=== PATIENT | male | born 1935 | race Caucasian/White ===

== ENCOUNTER 2023-11-18 09:44 | Emergency (ER) | payer MEDICARE, BC, SELFPAY ==
[2023-11-18 10:02] VITALS: BP 154/76; PULSE 90; RESP 22; TEMP 36.8; O2SAT 93; BMI 36.6
--- NOTE | 2023-11-18 10:44 | CRLHL7_ITS ---
For Patients: As a result of the Cures Act, medical imaging exams and procedure reports are released immediately into your electronic medical record. You may view this report before your referring provider. If you have questions, please contact your health care provider. INDICATION: : Shortness of breath COMPARISON: None TECHNIQUE: Two view(s) of the chest FINDINGS/IMPRESSION: Likely cardiomegaly with some pulmonary vascular congestion and some diffuse interstitial opacities favored to represent pulmonary interstitial edema. Small right and moderate left pleural effusions with adjacent atelectatic lung. No pneumothorax. No displaced fractures. Degenerative changes of the bilateral shoulders. Dictated by Jacob Mosher MD @ 11/18/2023 11:31:57 AM (Electronically Signed)
--- NOTE | 2023-11-18 11:00 | ED.SOB ---
HPI - SOB/Dyspnea General Date Seen: 11/18/23 Chief Complaint: Shortness of Breath/Dyspnea Stated Complaint: Shortness of Breath (COPD) Time Seen by Provider: 11/18/23 10:00 Source: patient Mode of arrival: ambulatory Limitations: no limitations History of Present Illness HPI Narrative: Patient is an 88-year-old male presenting to the emergency department for shortness of breath. He states he has been having worsening shortness of breath for the past few weeks. He does have COPD and has been using his home inhalers which have been helping with his symptoms. States he is taking more frequently than he is supposed to due to his symptoms. States now just walking around a short amount make some very short of breath. he does not wear oxygen at home. Is not having any associated chest pain. States this feels different than his previous COPD episodes. Has been noticing a lot of wheezing now. Denies fevers, chills, abdominal pain, lightheadedness, dizziness, weakness, numbness, diarrhea, constipation. Does not aware of any sick contacts. No other concerns noted at this time. He does have a history of aortic valve stenosis. Related Data Home Medications ?Medication ?Instructions ?Recorded ?Confirmed albuterol sulfate 90 mcg/actuation 1 - 2 puff inhalation Q4H PRN 11/18/23 11/18/23 aerosol inhaler wheezing chlorthalidone 25 mg tablet 12.5 mg PO DAILY 11/18/23 11/18/23 clopidogrel 75 mg tablet 75 mg PO DAILY 11/18/23 11/18/23 ipratropium 0.5 mg-albuterol 3 mg 3 ml inhalation QID PRN 11/18/23 11/18/23 (2.5 mg base)/3 mL nebulization soln losartan 50 mg tablet 50 mg PO DAILY 11/18/23 11/18/23 metoprolol succinate 25 mg 25 mg PO DAILY 11/18/23 11/18/23 tablet,extended release 24 hr pravastatin 80 mg tablet 80 mg PO QPM 11/18/23 11/18/23 tamsulosin 0.4 mg capsule 0.8 mg PO DAILY 11/18/23 11/18/23 triamcinolone acetonide 0.5 % applic topical 11/18/23 topical cream umeclidinium 62.5 mcg/actuation 1 inh inhalation DAILY 11/18/23 11/18/23 blister powder for inhalation (Incruse Ellipta) Previous Rx's ?Medication ?Instructions ?Recorded torsemide 20 mg tablet 20 mg PO BID #30 tabs 11/18/23 Allergies Allergy/AdvReac Type Severity Reaction Status Date / Time No Known Drug Allergies Allergy Verified 11/18/23 10:11 Review of Systems Status of ROS: Reports: 10 or more systems reviewed and unremarkable except as noted in History and below PFSH PFS Social History Smoking Status: Former smoker What tobacco products do you use: cigarettes How often do you have a drink containing alcohol: never How often do you have six or more drinks on one occasion: Never AUDIT-C Alcohol total score: 0 Non-prescribed substance use: denies use Exam Narrative: Exam Narrative: Const: Well-nourished, Well-developed, in mild distress Eyes: PERRL, no conjunctival injection, and symmetrical lids HENT: Atraumatic external nose and ears. Moist mucous membranes. Neck: Symmetric, trachea midline, No thyromegaly. CVS: RRR, No murmurs or gallops. Peripheral pulses 2+ and equal in all extremities RESP: Unlabored respiratory effort. Decreased breath sounds throughout with some crackles in lower lobes GI: Nontender/Nondistended, No rebound or guarding. MSK:Extremities w/o deformity, Normal Active ROM Skin: Warm, Dry. No rashes or lesions. Neuro: Normal Muscle tone, No focal neurological deficits. Psych: Awake, Alert, & Oriented x3. Appropriate mood and affect. Const: Vital Signs, click to edit/add: Vital Signs - 24 hr 11/18/23 10:02 Temperature 98.2 F Pulse Rate [Pulse Oximeter] 90 Respiratory Rate 22 Blood Pressure [Ri ght Upper Arm] 154/76 H Pulse Oximetry 93 Oxygen Delivery Me thod Room Air Course Vital Signs Vital signs: Initial Vital Signs Temperature 98.2 F 11/18/23 10:02 Temperature Source Temporal Artery Scan 11/18/23 10:02 Pulse Rate 90 11/18/23 10:02 Pulse Rhythm Regular 11/18/23 10:02 Respiratory Rate 22 11/18/23 10:02 Blood Pressure 154/76 H 11/18/23 10:02 Blood Pressure Mean 102 11/18/23 10:02 Pulse Oximetry 93 11/18/23 10:02 Oxygen Delivery Method Room Air 11/18/23 10:02 Vital Signs Temperature 98.2 F 11/18/23 10:02 Pulse Rate 90 11/18/23 10:02 Respiratory Rate 22 11/18/23 10:02 Blood Pressure 154/76 H 11/18/23 10:02 Pulse Oximetry 93 11/18/23 10:02 Oxygen Delivery Method Room Air 11/18/23 10:02 Temperature 98.2 F 11/18/23 10:02 Pulse Rate 90 11/18/23 10:02 Respiratory Rate 22 11/18/23 10:02 Blood Pressure 154/76 H 11/18/23 10:02 Pulse Oximetry 93 11/18/23 10:02 Oxygen Delivery Method Room Air 11/18/23 10:02 Medications Administered Medications: Discontinued Medications Generic Name Dose Route Start Last Admin Trade Name Freq PRN Reason Stop Dose Admin Albuterol 20 mg 11/18/23 10:44 11/18/23 11:31 Albuterol Sulfate 2.5 Mg/3 Ml Vial.Neb NEB 11/18/23 10:45 Not Given ONCE ONE Methylprednisolone Sodium Succinate 125 mg 11/18/23 10:44 11/18/23 11:20 Methylprednisolone Sod Succ 62.5 Mg/Ml (125) IVP 11/18/23 10:45 125 mg ONCE ONE Administration MDM - SOB/Dyspnea MDM Narrative Medical decision making narrative: Patient is an 88-year-old male presenting to emergency department for shortness of breath. Based on exam and history this seems likely to be a COPD exacerbation. No lower extremity edema and heart failure seems unlikely but will check a BNP. Chest x-ray aortic for signs of pneumonia or pneumothorax. EKG and troponins the for signs of ACS. Will also order a CBC, BMP, urinalysis, COVID/flu/RSV. Did preliminary give him a treatment of Solu-Medrol for possible COPD. Albuterol initially ordered but was canceled Lab work returned with a BNP of 1450. Chest x-ray shows some pulmonary edema. Creatinine is 1.7 which is his baseline. Rest of his labs showed no concerning abnormalities. This is all consistent with CHF. Symptoms seem to be most likely from CHF rather than a COPD exacerbation at this time. Troponin within normal limits. EKG shows no concerning abnormalities. We did ambulate the patient and he was feeling better compared to an when he 1st came and and his oxygenation stayed above 91%. I spoke to his primary care provider about the patient's heart failure and he recommended to start the patient on torsemide 20 mg b.i.d. Patient will follow-up next week with someone from his office. Lab Data Labs: Lab Results 11/18/23 11/18/23 Range/Units 11:27 12:22 WBC 10.75 (4.50-11.00) K/uL RBC 4.14 L (4.30-5.90) m/uL Hgb 12.8 L (13.5-17.5) gm/dL Hct 40.2 (37.0-53.0) % MCV 97 (80-100) fL MCH 31 (26-34) pg MCHC 32 (32-36) gm/dL RDW Coeff of Sissy 12.3 (11.5-15.5) % Plt Count 196 (140-440) K/uL Neut % (Auto) 77.5 H (42.0-72.0) % Lymph % (Auto) 9.7 L (20-44) % [place] % (Auto) 7.9 (0.0-11.0) % Eos % (Auto) 4.3 (0.0-7.0) % Baso % (Auto) 0.3 (0.0-3.0) % Neut # (Auto) 8.30 H (1.7-7.0) K/uL Lymph # (Auto) 1.00 (0.90-2.90) K/uL [place] # (Auto) 0.80 (0.00-0.90) K/UL Eos # (Auto) 0.46 (0.00-0.50) K/uL Baso # (Auto) 0.03 (0.00-0.30) K/uL Abs Immat Gran (auto) 0.03 (0.00-0.30) K/uL Imm/Tot Granulo (auto) 0.3 % Sodium 139 (135-149) mmol/L Potassium 4.7 (3.6-5.1) mmol/L Chloride 108 (96-114) mmol/L Carbon Dioxide 20 (20-32) mmol/L Anion Gap 11 (7-15) mEq/L BUN 34 H (7-30) mg/dL Creatinine 1.7 H (0.5-1.5) mg/dL Estimated Creat Clear 26.63 Estimated GFR 39 ml/min Glucose 127 H (60-115) mg/dL Calcium 8.7 (8.4-10.6) mg/dL Troponin I 0.02 (0.01-0.04) ng/mL NT-Pro-B Natriuret Pep 1450 pg/mL Urine Color Yellow (Yellow) Urine Appearance Clear (Clear) Urine pH 5.5 (5.0-8.5) Ur Specific [place] 1.025 (1.000-1.030) Urine Protein Negative (Negative) Urine Glucose (UA) Negative (Negative) Urine Ketones Negative (Negative) Urine Blood Trace-intact A (Negative) Urine Nitrite Negative (Negative) Urine Bilirubin Negative (Negative) Urine Urobilinogen 0.2 (0.2-1.0) Ur Leukocyte Esterase Negative (Negative) Urine RBC 0-2 (0-2) Urine WBC 0-2 (0-5) Ur Squamous Epith Cells Few (None-Few) Amorphous Sediment Few A (None) Urine Bacteria None (None) SARS-CoV-2 (PCR) Negative SARS-CoV-2 (Negative) Influenza Type A (PCR) Negative PCR FLU A (Negative) Influenza Type B (PCR) Negative PCR FLU B (Negative) RSV (PCR) Negative PCR RSV (Negative) Imaging Data Chest x-ray: Attestation: I have reviewed the pertinent imaging results. Radiologist's impression: Likely cardiomegaly with some pulmonary vascular congestion and some diffuse interstitial opacities favored to represent pulmonary interstitial edema. Small right and moderate left pleural effusions with adjacent atelectatic lung. No pneumothorax. No displaced fractures. Degenerative changes of the bilateral shoulders. Dictated by Jacob Mosher MD @ 11/18/2023 11:31:57 AM ECG Data Attestation: I personally reviewed and interpreted this ECG as follows: Prior ECG tracings: not available for review Interpretation: Normal sinus rhythm with rate of 85 beats per minute, normal intervals, normal axis, no ST or T-wave abnormalities Discharge Plan Discharge Clinical Impression: Diastolic congestive heart failure Patient Disposition: Home, Self-Care Condition: Stable Instructions: Heart Failure (DC) Additional Instructions: I spoke to Dr. Vergara and he recommends adding torsemide which is another water pill. He is out of office for most of next week but you can call today to try and get an appointment with 1 of his colleagues next week and at least get lab work done on Tuesday. If symptoms worsen return to the emergency department for re-evaluation Prescriptions: New torsemide 20 mg tablet 20 mg PO BID Qty: 30 0RF No Action losartan 50 mg tablet 50 mg PO DAILY ipratropium-albuterol 0.5 mg-3 mg(2.5 mg base)/3 mL solution for nebulization 3 ml INHALATION QID PRN triamcinolone acetonide 0.5 % cream topical clopidogrel 75 mg tablet 75 mg PO DAILY chlorthalidone 25 mg tablet 12.5 mg PO DAILY pravastatin 80 mg tablet 80 mg PO QPM tamsulosin 0.4 mg capsule 0.8 mg PO DAILY metoprolol succinate 25 mg tablet extended release 24 hr 25 mg PO DAILY albuterol sulfate 90 mcg/actuation HFA aerosol inhaler 1 - 2 puff INHALATION Q4H PRN (Reason: wheezing) Incruse Ellipta 62.5 mcg/actuation blister with device 1 inh INHALATION DAILY Follow Up/Referrals: Alex Sinclair MD [Primary Care Provider] - Stand Alone Forms: [employer] Info Instructions
--- NOTE | 2023-11-18 11:15 | ED.NURSE ---
RT called to consult with pt.
[2023-11-18] MEDS: METHYLPREDNISOLONE SOD SUCC 62.5 MG/ML (125) 125 MG IVP (11:20)
[2023-11-18 11:36] LABS: Basophils Absolute Auto 0.03 K/uL (0.00-0.30); Basophils Percent Auto 0.3 % (0.0-3.0); Eosinophils Absolute Auto 0.46 K/uL (0.00-0.50); Eosinophils Percent Auto 4.3 % (0.0-7.0); Hematocrit 40.2 % (37.0-53.0); Hemoglobin* 12.8 gm/dL (13.5-17.5); Immature Granulocytes Abs Auto 0.03 K/uL (0.00-0.30); Immature Granulocytes Pct Auto 0.3 %; Lymphocytes Percent Auto 9.7 % (20-44); Mean Corpuscular HGB Conc 32 gm/dL (32-36); Mean Corpuscular Hemoglobin 31 pg (26-34); Mean Corpuscular Volume 97 fL (80-100); Monocytes Percent Auto 7.9 % (0.0-11.0); Neutrophils Percent Auto 77.5 % (42.0-72.0); Platelet Count* 196 K/uL (140-440); RDW Coefficient of Variation % 12.3 % (11.5-15.5); Red Blood Count 4.14 m/uL (4.30-5.90); White Blood Count* 10.75 K/uL (4.50-11.00)
[2023-11-18 11:41] LABS: Slide Review Reflex No
[2023-11-18 11:49] LABS: Chloride* 108 mmol/L (96-114); Potassium* 4.7 mmol/L (3.6-5.1); Sodium* 139 mmol/L (135-149)
--- NOTE | 2023-11-18 11:50 | ED.NURSE ---
Pt ambulated around the unit, oxygen measured between 91-93%. Pt tolerated well, reports feeling puffy, after sitting back down in room.
[2023-11-18 11:52] LABS: Anion Gap 11 mEq/L (7-15); Blood Urea Nitrogen* 34 mg/dL (7-30); Carbon Dioxide* 20 mmol/L (20-32); Creatinine* 1.7 mg/dL (0.5-1.5); Est. Creatinine Clearance* 26.63; Estimated Glomerular Filt Rate 39 ml/min; Glucose* 127 mg/dL (60-115)
[2023-11-18 11:53] LABS: Calcium* 8.7 mg/dL (8.4-10.6)
[2023-11-18 11:59] VITALS: BP 169/97; PULSE 88; RESP 18; O2SAT 92
[2023-11-18 12:04] LABS: Troponin I* 0.02 ng/mL (0.01-0.04)
[2023-11-18 12:11] LABS: PCR FLU A Negative PCR FLU A (Negative); PCR FLU B Negative PCR FLU B (Negative); PCR RSV Negative PCR RSV (Negative); SARS PCR* Negative SARS-CoV-2 (Negative)
[2023-11-18 12:12] LABS: NT Pro B Type NatriureticPept* 1450 pg/mL
[2023-11-18 12:32] LABS: Appearance Urine Clear (Clear); Bilirubin Urine Negative (Negative); Blood Urine Trace-intact (Negative); Color Urine Yellow (Yellow); Glucose Urine Negative (Negative); Ketones Urine Negative (Negative); Leukocyte Esterase Urine Negative (Negative); Nitrite Urine Negative (Negative); Protein Urine Negative (Negative); Specific Gravity Urine 1.025 (1.000-1.030); Urobilinogen Urine 0.2 (0.2-1.0); pH Urine 5.5 (5.0-8.5)
[2023-11-18 13:06] LABS: RBC Urine 0-2 (0-2); Squamous Epithelial Cell Urine Few (None-Few); WBC Urine 0-2 (0-5)
[2023-11-18 13:07] LABS: Amorphous Sediment Urine Few
--- NOTE | 2023-11-18 13:27 | RESP.RT ---
Patient sitting on edge of bed on room air SATing 95%. Patient takes Incruse DPI once a day in the morning and states that he follows that up with a Nebulizer. He believes it is Albuterol, but not sure. He also takes a rescue inhaler probably Albuterol as well. He was not taking his MDI as instructed, so follow up instruction was given and he was provided with a quality spacer to take his MDI at home. He was able to talk in full sentances without issue and his RR appeared to be 18-22 throughout the conversations. He did have slightly swollen feet and ankles, and stated that he has difficulty keeping his breath while walking.
--- NOTE | 2023-11-18 14:44 | ED.NURSE ---
Patient's called reporting issue getting follow up appointment scheduled. I made call to [facility] and set up appt for 11/29/23 at 10:[address] Oleary. This information was then given to via telephone.
== END 2023-11-18 13:31 | disposition home or self-care (01) ==
PROVIDERS: Emergency Provider Student in an Organized Health Care Education/Training Program; PCP Family Medicine
DX: I50.30 Unspecified diastolic (congestive) heart failure (principal)
CPT/HCPCS: 36415; 71046; 80048; 81001; 83880; 84484; 85025; 87631; 93005; 96374; 99283; 99284; J2919

== ENCOUNTER 2024-01-19 16:24 | Inpatient (IN) | payer MEDICARE, BC, SELFPAY ==
[2024-01-19] VITALS (20 sets, daily range): BP systolic 126–152; BP diastolic 49–86; PULSE 92–105; RESP 28–32; TEMP 36.9–37.6; O2SAT 91–95; BMI 39.1; BMI 37.6
--- NOTE | 2024-01-19 16:45 | CRLHL7_ITS ---
For Patients: As a result of the 21st Century Cures Act, medical imaging exams and procedure reports are released immediately into your electronic medical record. You may view this report before your referring provider. If you have questions, please contact your health care provider. INDICATION: Shortness of breath, chills, abdominal pain. TECHNIQUE: CT chest, abdomen and pelvis acquired without contrast. COMPARISON: None. FINDINGS: CHEST: Cardiovascular structures: Prominent heart size. Coronary artery calcifications. Thoracic aorta and main pulmonary artery are normal in caliber. Mediastinum and zack: No mass or adenopathy. Lungs and pleura: Pulmonary emphysema. Small left and trace right pleural effusions with compressive atelectasis. No pneumothorax. Incidental 1.9 centimeter right middle lobe pulmonary nodule. Additional focal 11 millimeter right lower lobe ground-glass nodule (series 3/image 53). Chest wall and axilla: No mass or adenopathy. Bones: No suspicious bone lesions. Unremarkable for age. ABDOMEN AND PELVIS: Liver: Unremarkable. Gallbladder and bile ducts: Tiny gallstone. Pancreas: Fatty atrophy. Spleen: Unremarkable. Adrenal glands: Unremarkable. Kidneys: Bilateral renal cysts. No hydronephrosis. Multiple nonobstructing stones in the left greater than right kidney. GI tract: Some fluid in the proximal colon. Colonic diverticulosis without diverticulitis. No bowel obstruction. Vascular structures: Aortoiliac arterial calcifications with 5.8 centimeter suprarenal abdominal aortic aneurysm. Lymph nodes: Unremarkable. Miscellaneous: Unremarkable. No free air or significant free fluid. Pelvic Organs: Prostatomegaly. Mildly distended bladder.. Bones: No suspicious bone lesions. Unremarkable for age. IMPRESSION: Some fluid in the proximal colon which can be seen with diarrheal illness. Incidental indeterminate 1.9 centimeter right middle lobe pulmonary nodule. Additional incidental 11 millimeter right lower lobe ground-glass nodule, possibly infectious/inflammatory in etiology. Recommend dedicated chest CT in 3 months to evaluate for resolution. Correlation with prior imaging would be helpful if available. Small left pleural effusion with compressive atelectasis. No definite pneumonia. Incidental 5.8 centimeter suprarenal abdominal aortic aneurysm. Colonic diverticulosis without diverticulitis. Tiny gallstone without acute cholecystitis. Otherwise, no acute intrathoracic or intra-abdominal/pelvic abnormality, including source of infection. Additional chronic findings as above. Please note that all CT scans at this facility use dose modulation, iterative reconstruction, and/or weight-based dosing when appropriate to reduce radiation dose to as low as reasonably achievable. Dictated by Kiran Carter MD @ 01/19/2024 8:01:34 PM (Electronically Signed)
--- NOTE | 2024-01-19 16:52 | ED_ITS ---
HPI - General Adult General Date Seen: 01/19/24 Chief complaint: Shortness of Breath/Dyspnea Stated complaint: trouble breathing, dizzy Time Seen by Provider: 01/19/24 16:39 Source: patient and family Mode of arrival: wheelchair Limitations: no limitations History of Present Illness HPI narrative: Patient is an 89-year-old male here with his son and for evaluation of chills, shortness of breath, abdominal pain and diarrhea. Symptoms started yesterday but have worsened today. He does not have chest pain but he says both shoulders have been hurting. He had some lower abdominal pain had some nonbloody diarrhea earlier today. He has not had any vomiting. Has felt short of breath. Has a history of COPD and heart failure, legs are little more swollen than usual. No fever documented but they do not have a thermometer at home. He has felt chilled and somewhat ill today. Related Data Home Medications ?Medication ?Instructions ?Recorded ?Confirmed albuterol sulfate 90 mcg/actuation 1 - 2 puff inhalation Q4H PRN 11/18/23 01/19/24 aerosol inhaler wheezing chlorthalidone 25 mg tablet 12.5 mg PO DAILY 11/18/23 01/19/24 clopidogrel 75 mg tablet 75 mg PO DAILY 11/18/23 01/19/24 ipratropium 0.5 mg-albuterol 3 mg 3 ml inhalation QID PRN 11/18/23 01/19/24 (2.5 mg base)/3 mL nebulization soln losartan 50 mg tablet 50 mg PO DAILY 11/18/23 01/19/24 metoprolol succinate 25 mg 25 mg PO DAILY 11/18/23 01/19/24 tablet,extended release 24 hr pravastatin 80 mg tablet 80 mg PO HS 11/18/23 01/20/24 tamsulosin 0.4 mg capsule 0.8 mg PO DAILY 11/18/23 01/19/24 triamcinolone acetonide 0.5 % 1 applic topical Q8H PRN itching 11/18/23 01/19/24 topical cream umeclidinium 62.5 mcg/actuation 1 inh inhalation DAILY 11/18/23 01/19/24 blister powder for inhalation (Incruse Ellipta) torsemide 20 mg tablet 20 mg PO QAM 01/19/24 01/19/24 Allergies Allergy/AdvReac Type Severity Reaction Status Date / Time No Known Drug Allergies Allergy Verified 01/19/24 16:33 Review of Systems Status of ROS: Reports: 10 or more systems reviewed and unremarkable except as noted in History and below [facility] Medical History (Updated 02/14/24 @ 00:01 by Zac Reynolds) Elevated troponin ?R79.89 - Other specified abnormal findings of blood chemistry (ICD-10) AAA (abdominal aortic aneurysm) ?I71.40 - Abdominal aortic aneurysm, without rupture, unspecified (ICD-10) Aortic stenosis, severe ?I35.0 - Nonrheumatic aortic (valve) stenosis (ICD-10) Atrial fibrillation with RVR ?I48.91 - Unspecified atrial fibrillation (ICD-10) COPD (chronic obstructive pulmonary disease) ?J44.9 - Chronic obstructive pulmonary disease, unspecified (ICD-10) Morbid obesity ?E66.01 - Morbid (severe) obesity due to excess calories (ICD-10) BPH (benign prostatic hyperplasia) ?N40.0 - Benign prostatic hyperplasia without lower urinary tract symptoms (ICD-10) Type 2 DM with CKD stage 4 and hypertension ?E11.22 - Type 2 diabetes mellitus with diabetic chronic kidney disease (ICD- 10) ?I12.9 - Hypertensive chronic kidney disease with stage 1 through stage 4 chronic kidney disease, or unspecified chronic kidney disease (ICD-10) ?N18.4 - Chronic kidney disease, stage 4 (severe) (ICD-10) Aortic stenosis ?I35.0 - Nonrheumatic aortic (valve) stenosis (ICD-10) 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 quit smoking >20 years ago What is your current living situation?: I presently have a place to live Problems where you live: no known problems Problems where you live details: N/A In the past 12 months, utilities in danger of being shut off: no In the past 12 mos, have been you worried that your food would run out before you had money to buy more?: never true In the past 12 mos, the food you bought just didn't last and you didn't have money to buy more?: never true Highest level of school completed/degree received: 12th grade, no diploma Smoking Status: Former smoker What tobacco products do you use: cigarettes Smoking quit date/years: >15 years ago Second hand tobacco smoke exposure: No How often do you have a drink containing alcohol: never How often do you have six or more drinks on one occasion: Never AUDIT-C Alcohol total score: 0 Non-prescribed substance use: denies use How often does anyone, including family, friends and others, physically hurt you : never How often does anyone, including family, friends and others, insult or talk down to you: never How often does anyone, including family, friends and others, threaten you with harm: never How often does anyone, including family, friends and others, scream or curse at you: never service: No Exam Narrative: Exam Narrative: Vital signs as noted above. In general, an alert, elderly male. He is lying on his side at his preference on the cart. Head: Normocephalic, atraumatic. Eyes: Pupils are equal reactive. Extraocular movements are full. Conjunctivae are normal. ENT: Mucous membranes are moist. Throat is normal. Neck: Supple without lymphadenopathy. Heart: Tachycardic, regular. Harsh systolic murmur heard best at the right sternal border. Lungs: Lungs actually sound clear. There is no wheezing, I do not hear significant crackles but he is tachypneic and breathing is mildly labored. Abdomen: Protuberant and soft. Nontender to palpation. Extremities: Edema noted in bilateral lower extremities without erythema. Neurologic: Patient is alert and oriented to person and place. Speech is fluent. Face is symmetric. Moves all extremities equally. Affect: Normal. Skin: Warm and dry. Well perfused. Const: Vital Signs, click to edit/add: Vital Signs - 24 hr 01/19/24 16:26 01/19/24 17:11 01/19/24 17:15 Temperature 99.6 F Pulse Rate 104 H 103 H Pulse Rate [Right Pulse Oximeter] 104 H Respiratory Rate 28 H 30 H Blood Pressure Blood Pressure [Le ft Upper Arm] 152/74 H Pulse Oximetry 94 92 94 Oxygen Delivery Me thod Room Air Room Air 01/19/24 17:22 01/19/24 17:30 01/19/24 18:48 Temperature Pulse Rate 99 100 96 Pulse Rate [Right Pulse Oximeter] Respiratory Rate 30 H Blood Pressure 126/49 L Blood Pressure [Le ft Upper Arm] Pulse Oximetry 94 92 92 Oxygen Delivery Me thod 01/19/24 18:49 01/19/24 19:23 01/19/24 19:30 Temperature Pulse Rate 97 98 97 Pulse Rate [Right Pulse Oximeter] Respiratory Rate 30 H Blood Pressure 150/76 H Blood Pressure [Le ft Upper Arm] Pulse Oximetry 93 91 92 Oxygen Delivery Me thod Room Air 01/19/24 19:45 01/19/24 20:00 01/19/24 20:00 Temperature Pulse Rate 99 94 Pulse Rate [Right Pulse Oximeter] Respiratory Rate 30 H Blood Pressure Blood Pressure [Le ft Upper Arm] Pulse Oximetry 91 95 94 Oxygen Delivery Me thod Room Air Room Air 01/19/24 20:15 01/19/24 20:30 Temperature Pulse Rate 105 H 99 Pulse Rate [Right Pulse Oximeter] Respiratory Rate 32 H Blood Pressure 146/86 H Blood Pressure [Le ft Upper Arm] Pulse Oximetry 94 94 Oxygen Delivery Me thod Room Air Documenting provider has reviewed patient's vital signs: yes Course Course ED Course: Diagnostic considerations are broad and include bacterial or viral infection such as pneumonia, COVID or other, intra-abdominal process including colitis, diverticulitis, cholecystitis, UTI or pyelonephritis among others, cardiac diagnoses such as acute coronary syndrome, congestive heart failure exacerbation, arrhythmia. EKG here shows a sinus rhythm, first-degree AV block, ventricular rate of 98 beats per minute. No acute ST segment changes. Some PACs. Labs are notable for a normal white blood cell count of 8.5, hemoglobin of 11.9, down just under a g from October of this year. Venous gases normal, pH is 7.33. Electrolytes notable for a sodium of 134 and a potassium of 5.2. BUN is 43 and creatinine is 2.7, up from his most recent baseline of 1.7. He does tell me he just size kidney doctor not long ago who said his kidneys were doing very well. His lactate is normal at 1.1. LFTs are normal, troponin is 0.02. BNP is elevated 4580, it was 1500 last time it was checked when he was thought to be having an exacerbation of congestive heart failure. Looking through his records, I do not see a prior echo in our system. CRP is elevated at greater than 9. TSH is normal. COVID influenza and RSV is negative. I was not able to do a CT with contrast because of his creatinine, CT without contrast by my review shows a small effusion on the left, I do not see any evidence of pneumonia. CT of the abdomen pelvis does not show any significant findings by my review. Radiology read is noted for showing a little bit of fluid in the proximal colon which can be seen with a diarrheal illness. He has an indeterminate 1.9 cm right middle lobe pulmonary nodule and an incidental 11 mm right lower lobe ground-glass nodule, dedicated chest CT is recommended in 3 months to evaluate for resolution. He has a small left pleural effusion, an incidental 5.8 cm suprarenal AAA, other incidental findings reviewed. Overall, evaluation today seems to indicate an exacerbation of congestive heart failure with pleural effusion and elevated BNP, dyspnea and mild hypoxia in the setting of worsening renal failure. I recommended admission to the hospital for diuresis and to follow his kidney function as we do this. Diuresis and other medications will be started on the floor. Vital Signs Vital signs: Initial Vital Signs Temperature 99.6 F 01/19/24 16:26 Temperature Source Temporal Artery Scan 01/19/24 16:26 Pulse Rate 104 H 01/19/24 16:26 Pulse Rhythm Regular 01/19/24 16:26 Pulse Strength 3+ Normal 01/19/24 16:26 Respiratory Rate 28 H 01/19/24 16:26 Blood Pressure 152/74 H 01/19/24 16:26 Blood Pressure Mean 100 01/19/24 16:26 Blood Pressure Position Sitting 01/19/24 16:26 Pulse Oximetry 94 01/19/24 16:26 Oxygen Delivery Method Room Air 01/19/24 16:26 Vital Signs Temperature 99.6 F 01/19/24 16:26 Pulse Rate 104 H 01/19/24 16:26 Respiratory Rate 28 H 01/19/24 16:26 Blood Pressure 152/74 H 01/19/24 16:26 Pulse Oximetry 94 01/19/24 16:26 Oxygen Delivery Method Room Air 01/19/24 16:26 Temperature 99.4 F 01/22/24 11:00 Pulse Rate 83 01/22/24 11:00 Respiratory Rate 22 01/22/24 11:00 Blood Pressure 133/80 01/22/24 11:00 Pulse Oximetry 91 01/22/24 11:00 Oxygen Delivery Method Room Air 01/22/24 11:00 Medications Administered Medications: Discontinued Medications Generic Name Dose Route Start Last Admin Trade Name Freq PRN Reason Stop Dose Admin Acetaminophen 650 - 975 mg 01/19/24 21:15 01/21/24 16:42 Acetaminophen 325 Mg Tablet PO 975 mg Q6H PRN Administration Albuterol/Ipratropium 1 neb 01/19/24 21:15 01/21/24 08:41 Iprat-Albut 0.5-2.5 Mg/3 Ml Neb IH 1 neb Q2H PRN Administration Apixaban 2.5 mg 01/21/24 09:00 01/22/24 09:01 Apixaban 5 Mg Tablet PO 2.5 mg BID ERIC Administration Azithromycin 500 mg 01/19/24 21:15 01/20/24 21:19 Azithromycin 250 Mg Tablet PO 01/21/24 21:16 500 mg Q24H ERIC Administration Budesonide 0.5 mg 01/19/24 21:15 01/22/24 09:01 Budesonide 0.5 Mg/2ml Neb NEB 0.5 mg BID ERIC Administration Clopidogrel Bisulfate 75 mg 01/20/24 09:00 01/20/24 08:44 Clopidogrel 75 Mg Tablet PO 75 mg DAILY ERIC Administration Diltiazem HCl 30 mg 01/21/24 10:45 01/22/24 07:50 Diltiazem 30 Mg Tablet PO 30 mg Q4H ERIC Administration Diltiazem HCl 120 mg 01/22/24 09:00 01/22/24 11:18 Diltiazem 120 Mg Cap.Er.24h PO 120 mg DAILY ERIC Administration Enoxaparin Sodium 40 mg 01/19/24 21:15 01/20/24 07:54 Enoxaparin 40 Mg/0.4 Ml Inj SUBCUT Not Given HS ERIC Enoxaparin Sodium 30 mg 01/19/24 22:15 01/20/24 07:54 Enoxaparin 40 Mg/0.4 Ml Inj SUBCUT Not Given HS ERIC Enoxaparin Sodium 30 mg 01/19/24 22:20 01/20/24 22:00 Enoxaparin 30 Mg/0.3ml Inj SUBCUT 30 mg HS ERIC Administration Furosemide 40 mg 01/19/24 21:15 01/19/24 22:07 Furosemide 10 Mg/Ml Inj IVP 01/19/24 21:16 40 mg ONCE ONE Administration Furosemide 40 mg 01/20/24 11:13 01/20/24 11:52 Furosemide 10 Mg/Ml Inj IVP 01/20/24 11:14 40 mg ONCE ONE Administration Furosemide 40 mg 01/20/24 18:00 01/20/24 20:04 Furosemide 10 Mg/Ml Inj IVP 01/20/24 18:01 40 mg ONCE ONE Administration Ceftriaxone Sodium 1 gm/ 100 mls @ 200 mls/hr 01/19/24 21:15 01/20/24 07:55 Sodium Chloride IVPB Infused Q24H ERIC Infusion Vancomycin/PEG/NADA/Lysine/Water 2 gm in 400 mls @ 200 mls/hr 01/20/24 17:30 01/21/24 10:45 Vancomycin 2 Gm/400 Ml IVPB 01/20/24 19:29 Infused ONCE ONE Infusion Protocol Vancomycin/PEG/NADA/Lysine/Water 1.5 gm in 300 mls @ 200 mls/hr 01/22/24 08:14 01/22/24 08:58 Vancomycin 1.5 Gm/300 Ml IVPB 01/22/24 09:43 Not Given ONCE ONE Protocol Insulin Aspart 0 unit 01/20/24 07:30 01/22/24 12:10 Insulin Aspart 100 Unit/Ml SUBCUT Not Given ACHS [facility] Protocol Losartan Potassium 50 mg 01/20/24 09:00 01/20/24 08:44 Losartan Potassium 50 Mg Tablet PO 50 mg DAILY ERIC Administration Metoprolol Succinate 25 mg 01/20/24 09:00 01/20/24 08:44 Metoprolol Succinate (Xl) 25 Mg Tab PO 25 mg DAILY ERIC Administration Metoprolol Succinate 50 mg 01/21/24 09:00 01/22/24 09:01 Metoprolol Succinate (Xl) 25 Mg Tab PO 50 mg DAILY ERIC Administration Metoprolol Tartrate 5 mg 01/21/24 07:05 01/21/24 08:31 Metoprolol Tartrate 1 Mg/Ml Inj IVP 01/21/24 07:06 5 mg ONCE ONE Administration Metoprolol Tartrate 5 mg 01/21/24 09:39 01/21/24 10:15 Metoprolol Tartrate 1 Mg/Ml Inj IVP 01/21/24 09:40 5 mg ONCE ONE Administration Umeclidinium [ 0 inhalation 01/20/24 09:00 01/22/24 11:05 Incruse Ellipta] 62. IH Not Given 5 Mcg/Actuation DAILY ERIC Blister Ondansetron HCl 4 mg 01/19/24 21:15 01/22/24 03:55 Ondansetron 2 Mg/Ml Inj IVP 4 mg Q4H PRN Administration Nausea Pravastatin Sodium 80 mg 01/20/24 18:00 01/21/24 18:24 Pravastatin Sodium 20 Mg Tablet PO 80 mg QPM ERIC Administration Sodium Chloride 5 ml 01/19/24 21:15 01/22/24 03:55 Sodium Chloride 0.9 % (Flush) 10 Ml Syringe IVF 5 ml .FLUSH PRN Administration Sodium Chloride 5 ml 01/19/24 21:15 01/22/24 09:02 Sodium Chloride 0.9 % (Flush) 10 Ml Syringe IVF 5 ml BID ERIC Administration Tamsulosin HCl 0.8 mg 01/20/24 09:00 01/22/24 09:02 Tamsulosin Hcl 0.4 Mg Capsule PO 0.8 mg DAILY ERIC Administration Torsemide 20 mg 01/20/24 09:00 01/20/24 08:44 Torsemide 20 Mg Tablet PO 20 mg QAM ERIC Administration Medical Decision Making Lab Data Labs: Lab Results 01/19/24 01/19/24 01/19/24 Range/Units 17:20 17:40 17:45 WBC 8.50 (4.50-11.00) K/uL RBC 3.87 L (4.30-5.90) m/uL Hgb 11.9 L (13.5-17.5) gm/dL Hct 36.8 L (37.0-53.0) % MCV 95 (80-100) fL MCH 31 (26-34) pg MCHC 32 (32-36) gm/dL RDW Coeff of Sissy 13.2 (11.5-15.5) % Plt Count 152 (140-440) K/uL Neut % (Auto) 83.3 H (42.0-72.0) % Lymph % (Auto) 4.0 L (20-44) % [place] % (Auto) 8.0 (0.0-11.0) % Eos % (Auto) 4.2 (0.0-7.0) % Baso % (Auto) 0.1 (0.0-3.0) % Neut # (Auto) 7.10 H (1.7-7.0) K/uL Lymph # (Auto) 0.30 L (0.90-2.90) K/uL [place] # (Auto) 0.70 (0.00-0.90) K/UL Eos # (Auto) 0.36 (0.00-0.50) K/uL Baso # (Auto) 0.01 (0.00-0.30) K/uL Abs Immat Gran (auto) 0.03 (0.00-0.30) K/uL Imm/Tot Granulo (auto) 0.4 % VBG pH 7.335 (7.32-7.43) VBG pCO2 42 (40-50) mmHG VBG pO2 35.0 (25-47) mmHG VBG HCO3 22 (21-28) mmol/L Sodium 134 L (135-149) mmol/L Potassium 5.2 H (3.6-5.1) mmol/L Chloride 103 (96-114) mmol/L Carbon Dioxide 22 (20-32) mmol/L Anion Gap 9 (7-15) mEq/L BUN 43 H (7-30) mg/dL Creatinine 2.7 H (0.5-1.5) mg/dL Estimated Creat Clear 16.45 Estimated GFR 22 ml/min Glucose 104 (60-115) mg/dL Lactate 1.1 (0.5-1.9) mmol/L Calcium 8.3 L (8.4-10.6) mg/dL Total Bilirubin 0.5 (0.1-1.5) mg/dL Direct Bilirubin 0.2 (0.0-0.5) mg/dL AST 27 (12-35) U/L ALT 15 (4-50) U/L Alkaline Phosphatase 53 (40-150) U/L Troponin I 0.02 (0.01-0.04) ng/mL C-Reactive Protein > 9.0 H (0.5-1.0) mg/dL NT-Pro-B Natriuret Pep 4580 pg/mL Total Protein 7.2 (6.0-8.3) g/dL Albumin 4.3 (3.3-5.0) g/dL Procalcitonin 0.51 H (<0.50) ng/mL TSH 3.900 (0.270-4.200) uIU/mL Urine Color (Yellow) Urine Appearance (Clear) Urine pH (5.0-8.5) Ur Specific [place] (1.000-1.030) Urine Protein (Negative) Urine Glucose (UA) (Negative) Urine Ketones (Negative) Urine Blood (Negative) Urine Nitrite (Negative) Urine Bilirubin (Negative) Urine Urobilinogen (0.2-1.0) Ur Leukocyte Esterase (Negative) Urine RBC (0-2) Urine WBC (0-5) Ur Squamous Epith Cells (None-Few) Amorphous Sediment (None) Urine Bacteria (None) SARS-CoV-2 (PCR) Negative SARS-CoV-2 (Negative) Influenza Type A (PCR) Negative PCR FLU A (Negative) Influenza Type B (PCR) Negative PCR FLU B (Negative) RSV (PCR) Negative PCR RSV (Negative) Lab Acknowledgement Test Added 01/19/24 Range/Units 20:34 WBC (4.50-11.00) K/uL RBC (4.30-5.90) m/uL Hgb (13.5-17.5) gm/dL Hct (37.0-53.0) % MCV (80-100) fL MCH (26-34) pg MCHC (32-36) gm/dL RDW Coeff of Sissy (11.5-15.5) % Plt Count (140-440) K/uL Neut % (Auto) (42.0-72.0) % Lymph % (Auto) (20-44) % [place] % (Auto) (0.0-11.0) % Eos % (Auto) (0.0-7.0) % Baso % (Auto) (0.0-3.0) % Neut # (Auto) (1.7-7.0) K/uL Lymph # (Auto) (0.90-2.90) K/uL [place] # (Auto) (0.00-0.90) K/UL Eos # (Auto) (0.00-0.50) K/uL Baso # (Auto) (0.00-0.30) K/uL Abs Immat Gran (auto) (0.00-0.30) K/uL Imm/Tot Granulo (auto) % VBG pH (7.32-7.43) VBG pCO2 (40-50) mmHG VBG pO2 (25-47) mmHG VBG HCO3 (21-28) mmol/L Sodium (135-149) mmol/L Potassium (3.6-5.1) mmol/L Chloride (96-114) mmol/L Carbon Dioxide (20-32) mmol/L Anion Gap (7-15) mEq/L BUN (7-30) mg/dL Creatinine (0.5-1.5) mg/dL Estimated Creat Clear Estimated GFR ml/min Glucose (60-115) mg/dL Lactate (0.5-1.9) mmol/L Calcium (8.4-10.6) mg/dL Total Bilirubin (0.1-1.5) mg/dL Direct Bilirubin (0.0-0.5) mg/dL AST (12-35) U/L ALT (4-50) U/L Alkaline Phosphatase (40-150) U/L Troponin I (0.01-0.04) ng/mL C-Reactive Protein (0.5-1.0) mg/dL NT-Pro-B Natriuret Pep pg/mL Total Protein (6.0-8.3) g/dL Albumin (3.3-5.0) g/dL Procalcitonin (<0.50) ng/mL TSH (0.270-4.200) uIU/mL Urine Color Yellow (Yellow) Urine Appearance Clear (Clear) Urine pH 5.5 (5.0-8.5) Ur Specific [place] 1.020 (1.000-1.030) Urine Protein 2+ A (Negative) Urine Glucose (UA) Negative (Negative) Urine Ketones Negative (Negative) Urine Blood 1+ A (Negative) Urine Nitrite Negative (Negative) Urine Bilirubin Negative (Negative) Urine Urobilinogen 0.2 (0.2-1.0) Ur Leukocyte Esterase Negative (Negative) Urine RBC 2-5 A (0-2) Urine WBC 0-2 (0-5) Ur Squamous Epith Cells Few (None-Few) Amorphous Sediment Many A (None) Urine Bacteria None (None) SARS-CoV-2 (PCR) (Negative) Influenza Type A (PCR) (Negative) Influenza Type B (PCR) (Negative) RSV (PCR) (Negative) Lab Acknowledgement Imaging Data CT Chest/Ab/Pelvis: Radiologist's impression: Patient: ANDERS MEHTA Facility: [facility] RIS Site . Site : 1935 Study: CT-Chest/Abd/Pelvis W/O-01/19/2024 7:12:58 PM Ordering Physician: Darren Suero Final Report: INDICATION: Shortness of breath, chills, abdominal pain. TECHNIQUE: CT chest, abdomen and pelvis acquired without contrast. COMPARISON: None. FINDINGS: CHEST: Cardiovascular structures: Prominent heart size. Coronary artery calcifications. Thoracic aorta and main pulmonary artery are normal in caliber. Mediastinum and zack: No mass or adenopathy. Lungs and pleura: Pulmonary emphysema. Small left and trace right pleural effusions with compressive atelectasis. No pneumothorax. Incidental 1.9 centimeter right middle lobe pulmonary nodule. Additional focal 11 millimeter right lower lobe ground-glass nodule (series 3/image 53). Chest wall and axilla: No mass or adenopathy. Bones: No suspicious bone lesions. Unremarkable for age. ABDOMEN AND PELVIS: Liver: Unremarkable. Gallbladder and bile ducts: Tiny gallstone. Pancreas: Fatty atrophy. Spleen: Unremarkable. Adrenal glands: Unremarkable. Kidneys: Bilateral renal cysts. No hydronephrosis. Multiple nonobstructing stones in the left greater than right kidney. GI tract: Some fluid in the proximal colon. Colonic diverticulosis without diverticulitis. No bowel obstruction. Vascular structures: Aortoiliac arterial calcifications with 5.8 centimeter acuña prarenal abdominal aortic aneurysm. Lymph nodes: Unremarkable. Miscellaneous: Unremarkable. No free air or significant free fluid. Pelvic Organs: Prostatomegaly. Mildly distended bladder.. Bones: No suspicious bone lesions. Unremarkable for age. IMPRESSION: Some fluid in the proximal colon which can be seen with diarrheal illness. Incidental indeterminate 1.9 centimeter right middle lobe pulmonary nodule. Additional incidental 11 millimeter right lower lobe ground-glass nodule, possibly infectious/inflammatory in etiology. Recommend dedicated chest CT in 3 months to evaluate for resolution. Correlation with prior imaging would be helpful if available. Small left pleural effusion with compressive atelectasis. No definite pneumonia. Incidental 5.8 centimeter suprarenal abdominal aortic aneurysm. Colonic diverticulosis without diverticulitis. Tiny gallstone without acute cholecystitis. Otherwise, no acute intrathoracic or intra-abdominal/pelvic abnormality, including source of infection. Additional chronic findings as above. Please note that all CT scans at this facility use dose modulation, iterative reconstruction, and/or weight-based dosing when appropriate to reduce radiation dose to as low as reasonably achievable. Dictated by Kiran Carter MD @ 01/19/2024 8:01:34 PM Discharge Plan Discharge Clinical Impression: Congestive heart failure, Acute on chronic renal insufficiency Patient Disposition: Admitted As Observation Condition: Stable
[2024-01-19 17:58] LABS: HCO3 VBG 22 mmol/L (21-28); PCO2 VBG 42 mmHG (40-50); pH VBG 7.335 (7.32-7.43)
[2024-01-19 18:00] LABS: Lactate Sepsis w/Reflex* 1.1 mmol/L (0.5-1.9)
[2024-01-19 18:07] LABS: Basophils Absolute Auto 0.01 K/uL (0.00-0.30); Basophils Percent Auto 0.1 % (0.0-3.0); Eosinophils Absolute Auto 0.36 K/uL (0.00-0.50); Eosinophils Percent Auto 4.2 % (0.0-7.0); Hematocrit 36.8 % (37.0-53.0); Hemoglobin* 11.9 gm/dL (13.5-17.5); Immature Granulocytes Abs Auto 0.03 K/uL (0.00-0.30); Immature Granulocytes Pct Auto 0.4 %; Mean Corpuscular HGB Conc 32 gm/dL (32-36); Mean Corpuscular Hemoglobin 31 pg (26-34); Mean Corpuscular Volume 95 fL (80-100); Neutrophils Percent Auto 83.3 % (42.0-72.0); Platelet Count* 152 K/uL (140-440); RDW Coefficient of Variation % 13.2 % (11.5-15.5); Red Blood Count 3.87 m/uL (4.30-5.90)
[2024-01-19 18:09] LABS: PCR FLU A Negative PCR FLU A (Negative); PCR FLU B Negative PCR FLU B (Negative); PCR RSV Negative PCR RSV (Negative); SARS PCR* Negative SARS-CoV-2 (Negative)
[2024-01-19 18:22] LABS: Albumin* 4.3 g/dL (3.3-5.0); Chloride* 103 mmol/L (96-114); Sodium* 134 mmol/L (135-149)
[2024-01-19 18:23] LABS: Potassium* 5.2 mmol/L (3.6-5.1); Slide Review Reflex No
[2024-01-19 18:25] LABS: Creatinine* 2.7 mg/dL (0.5-1.5); Est. Creatinine Clearance* 16.45; Estimated Glomerular Filt Rate 22 ml/min
[2024-01-19 18:26] LABS: Alanine Aminotransferase* 15 U/L (4-50); Alkaline Phosphatase* 53 U/L (40-150); Anion Gap 9 mEq/L (7-15); Aspartate Amino Transferase* 27 U/L (12-35); Bilirubin Direct* 0.2 mg/dL (0.0-0.5); Bilirubin Total* 0.5 mg/dL (0.1-1.5); Blood Urea Nitrogen* 43 mg/dL (7-30); Calcium* 8.3 mg/dL (8.4-10.6); Carbon Dioxide* 22 mmol/L (20-32); Glucose* 104 mg/dL (60-115); Total Protein* 7.2 g/dL (6.0-8.3)
[2024-01-19 18:29] LABS: C Reactive Protein* > 9.0 mg/dL (0.5-1.0)
[2024-01-19 18:37] LABS: Troponin I* 0.02 ng/mL (0.01-0.04)
[2024-01-19 18:38] LABS: NT Pro B Type NatriureticPept* 4580 pg/mL
--- NOTE | 2024-01-19 20:31 | P.IMHP_ITS ---
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 He was in his baseline stable health yesterday and did a chore near his deck and the SOB hit him and he had trouble getting in the house. He felt weak, chilled, SOB. No real cough or wheeze. He has mild COPD at baseline. He slept ok overnight (No CPAP or oxygen at home) but this morning he had weakness, chills and SOB worse than the day before. He was brought to the ED by family. ER COURSE: CT CAP, labs, monitoring. CODE STATUS: DNR/DNI EMERGENCY CONTACT PLAN: his son lives with him and his , he would like Armin called first and then if needed his . Armin Brooks Rel To Pat Son Cell I've updated the PFSH, medications and allergies in the Expanse tabs. INVESTIGATIONS: LABS/MICRO/ECG/IMAGING Hypertensive 150/76, pulse 105, resp rate 30, 1 L per nasal cannula oxygen to keep sats 90-94. Low-grade temp of 99.6? 106 kg, BMI 39 CBC shows a normal white blood cell count, mild anemia at 11.9. Normal platelets. PH is normal. No CO2 retention. Bicarb normal. Mild hyponatremia at 134., mild hyperkalemia at 5.2. NEGRO on chronic kidney disease when looking at our labs but there was a creat of 2.6 in November after torsemide was started so today 2.7 isn't really all that different. On our lab history reatinine went from 1.7-2.7 in the last 60 days. BUN is elevated at 43. Glucose is only 104. Liver enzymes normal CRP is greater than 9 BNP has jumped from [id number] in the last 2 months TSH normal, albumin normal, total protein normal Negative respiratory viral screen CT chest abdomen pelvis done in the emergency room: Some fluid in the proximal colon which can be seen with diarrheal illness. Incidental indeterminate 1.9 centimeter right middle lobe pulmonary nodule. Additional incidental 11 millimeter right lower lobe ground-glass nodule, possibly infectious/inflammatory in etiology. Recommend dedicated chest CT in 3 months to evaluate for resolution. Correlation with prior imaging would be helpful if available. Small left pleural effusion with compressive atelectasis. No definite pneumonia. NOT NEW Incidental 5.8 centimeter suprarenal abdominal aortic aneurysm. Colonic diverticulosis without diverticulitis. Tiny gallstone without acute cholecystitis. Otherwise, no acute intrathoracic or intra-abdominal/pelvic abnormality, including source of infection. Blood culture pending. No urine sample. Echo last done in 12/2018 Final Impressions: 1. Technically limited exam. 2. Normal left ventricular size, moderately increased wall thickness, normal global systolic function, calculated EF of 63 %. 3. Right ventricular cavity size is normal, global systolic RV function is normal. 4. The aortic valve is trileaflet and sclerotic, moderate stenosis and mild regurgitation. The aortic valve peak velocity is 3.11 m/s, the peak gradient is 38.6 mmHg, and the mean gradient is 22.9 mmHg. The aortic valve area is 1.38 cm??. 5. The mitral valve is sclerotic, mild mitral regurgitation. 6. Grade 1 pattern of LV diastolic filling. ? Comparison Compared to prior exam report of 06/17/17: - Aortic stenosis has increased. From most recent (dec 19) note from nephrology (good summary) Progressive CKD with more rapid worsening in 2023, Cr higher since needing to start torsemide but this may be a result of lower renal function as well. I suspect CKD is 2/2 vascular disease, HTN, DM, and heart failure with progressive aortic stenosis as well. However, he also has significant LUTS and I will rule out bladder outlet obstruction. And given rapid rise in Cr this year, will do basic work-up. However, he does not want to repeat cardiac imaging or see vascular or cardiology at this time as he does not want any further procedures or operations given his age and wishes. He would also not pursue dialysis if it became necessary. REVIEW OF SYSTEMS: 12-point ROS completed with patient and negative unless otherwise stated in HPI or below. PHYSICAL EXAM: CONSTITUTIONAL: He looks chronically ill but in NAD. He laughs with me and doesn't get dyspneic with conversation. VITAL SIGNS: see record. HEENT: Normocephalic, atraumatic. PERRL, EOMI, conjunctivae pink, no scleral icterus. Ears and nose externally normal. Pharynx normal. NECK: No JVD. No carotid bruit, no thyromegaly, no adenopathy. CHEST: crackles left base; clearer on the right HEART: S1 and S2 normal. crescendo/decrescendo prominent murmur radiating to the carotids - edema is 1+ to mid tibia MUSCULOSKELETAL: No gross joint deformity or swelling. NEURO: Cranial nerves intact. Grossly intact. No asymmetric findings. SKIN: No rashes, petechiae, concerning changes PSYCHIATRIC: Euthymic. ADMIT TO MEDSURG: FLOOR CARE DVT: Lovenox GI: PO intake Time spent: Today I spent 75 minutes seeing the patient, discussing the patient with ER staff, reviewing Expanse and EPIC notes/diagnostics, discussing the care plan with our care time that includes social work, PT/OT, pharmacy, RT, penitentiary and documenting my impressions and plan in the medical record. [facility] Medical History (Updated 01/19/24 @ 22:02 by Sophie Torres MD) COPD (chronic obstructive pulmonary disease) ?J44.9 - Chronic obstructive pulmonary disease, unspecified (ICD-10) Morbid obesity ?E66.01 - Morbid (severe) obesity due to excess calories (ICD-10) BPH (benign prostatic hyperplasia) ?N40.0 - Benign prostatic hyperplasia without lower urinary tract symptoms (ICD-10) Type 2 DM with CKD stage 4 and hypertension ?E11.22 - Type 2 diabetes mellitus with diabetic chronic kidney disease (ICD- 10) ?I12.9 - Hypertensive chronic kidney disease with stage 1 through stage 4 chronic kidney disease, or unspecified chronic kidney disease (ICD-10) ?N18.4 - Chronic kidney disease, stage 4 (severe) (ICD-10) Aortic stenosis ?I35.0 - Nonrheumatic aortic (valve) stenosis (ICD-10) Popliteal aneurysm ?I72.4 - Aneurysm of artery of lower extremity (ICD-10) CKD (chronic kidney disease) stage 4, GFR 15-29 ml/min ?N18.4 - Chronic kidney disease, stage 4 (severe) (ICD-10) Surgical History (Updated 01/19/24 @ 20:51 by Sophie Torres MD) S/P AAA repair ?Z98.890 - Other specified postprocedural states (ICD-10) ?Z86.79 - Personal history of other diseases of the circulatory system (ICD- 10) Social History (Updated 01/19/24 @ 20:49 by Sophie Torres MD) Narrative: , 3 adult sons, retired [employer]. quit smoking >20 years ago What is your current living situation?: I presently have a place to live Problems where you live: no known problems Problems where you live details: N/A In the past 12 months, utilities in danger of being shut off: no In past 12 months, lack of transportation kept you from medical appts, meetings, work, or getting things needed for daily living: no In the past 12 mos, have been you worried that your food would run out before you had money to buy more?: never true In the past 12 mos, the food you bought just didn't last and you didn't have money to buy more?: never true Highest level of school completed/degree received: 12th grade, no diploma Smoking Status: Former smoker What tobacco products do you use: cigarettes Smoking quit date/years: >15 years ago How often do you have a drink containing alcohol: never How often do you have six or more drinks on one occasion: Never AUDIT-C Alcohol total score: 0 Non-prescribed substance use: denies use How often does anyone, including family, friends and others, physically hurt you : never How often does anyone, including family, friends and others, insult or talk down to you: never How often does anyone, including family, friends and others, threaten you with harm: never How often does anyone, including family, friends and others, scream or curse at you: never service: No Meds Home Medications and Allergies Home Medications ?Medication ?Instructions ?Recorded ?Confirmed ?Type albuterol sulfate 90 mcg/actuation 1 - 2 puff inhalation Q4H PRN 11/18/23 01/19/24 History aerosol inhaler wheezing chlorthalidone 25 mg tablet 12.5 mg PO DAILY 11/18/23 01/19/24 History clopidogrel 75 mg tablet 75 mg PO DAILY 11/18/23 01/19/24 History ipratropium 0.5 mg-albuterol 3 mg 3 ml inhalation QID PRN 11/18/23 01/19/24 History (2.5 mg base)/3 mL nebulization soln losartan 50 mg tablet 50 mg PO DAILY 11/18/23 01/19/24 History metoprolol succinate 25 mg 25 mg PO DAILY 11/18/23 01/19/24 History tablet,extended release 24 hr pravastatin 80 mg tablet 80 mg PO QPM 11/18/23 01/19/24 History tamsulosin 0.4 mg capsule 0.8 mg PO DAILY 11/18/23 01/19/24 History triamcinolone acetonide 0.5 % 1 applic topical Q8H PRN itching 11/18/23 01/19/24 History topical cream umeclidinium 62.5 mcg/actuation 1 inh inhalation DAILY 11/18/23 01/19/24 History blister powder for inhalation (Incruse Ellipta) torsemide 20 mg tablet 20 mg PO QAM 01/19/24 01/19/24 History Allergies Allergy/AdvReac Type Severity Reaction Status Date / Time No Known Drug Allergies Allergy Verified 01/19/24 16:33 Exam Const: Vital Signs, click to edit/add: Vital Signs - 24 hr 01/19/24 16:26 01/19/24 17:11 01/19/24 17:15 Temperature 99.6 F Pulse Rate 104 H 103 H Pulse Rate [Right Pulse Oximeter] 104 H Respiratory Rate 28 H 30 H Blood Pressure Blood Pressure [Le ft Upper Arm] 152/74 H Pulse Oximetry 94 92 94 Oxygen Delivery Me od Room Air Room Air 01/19/24 17:22 01/19/24 17:30 01/19/24 18:48 Temperature Pulse Rate 99 100 96 Pulse Rate [Right Pulse Oximeter] Respiratory Rate 30 H Blood Pressure 126/49 L Blood Pressure [Le ft Upper Arm] Pulse Oximetry 94 92 92 Oxygen Delivery Ak thod 01/19/24 18:49 01/19/24 19:23 01/19/24 19:30 Temperature Pulse Rate 97 98 97 Pulse Rate [Right Pulse Oximeter] Respiratory Rate 30 H Blood Pressure 150/76 H Blood Pressure [Le ft Upper Arm] Pulse Oximetry 93 91 92 [facility] 01/19/24 19:45 01/19/24 20:00 01/19/24 20:15 Temperature Pulse Rate 99 94 105 H Pulse Rate [Right Pulse Oximeter] Respiratory Rate 30 H Blood Pressure Blood Pressure [Le ft Upper Arm] Pulse Oximetry 91 95 94 Oxygen Delivery Me thod Room Air Hospitalist - H&P: Result Labs Labs: Short CBC 01/19/24 Range/Units 17:40 WBC 8.50 (4.50-11.00) K/uL Hgb 11.9 L (13.5-17.5) gm/dL Hct 36.8 L (37.0-53.0) % Plt Count 152 (140-440) K/uL BMP 01/19/24 17:40 Sodium 134 L Potassium 5.2 H Chloride 103 Carbon Dioxide 22 BUN 43 H Creatinine 2.7 H Glucose 104 Calcium 8.3 L Cardiac Enzymes 01/19/24 Range/Units 17:40 Troponin I 0.02 (0.01-0.04) ng/mL Liver Function 01/19/24 Range/Units 17:40 Total Bilirubin 0.5 (0.1-1.5) mg/dL Direct Bilirubin 0.2 (0.0-0.5) mg/dL AST 27 (12-35) U/L ALT 15 (4-50) U/L Alkaline Phosphatase 53 (40-150) U/L Albumin 4.3 (3.3-5.0) g/dL Assessment and Plan Assessment and plan (1) Acute diastolic heart failure with preserved ejection fraction: Problem comment: pt has been on torsemide 20mg qam since October, recently dropping to 10mg (managed by Dr. Mcgraw). will update echo. Lasix 40mg IV, monitor UOP/response, electrolytes Byers ok for comfort Likely needs more diuresis than 10mg torsemide Status: Acute (2) Acute kidney injury superimposed on stage 4 chronic kidney disease: Problem comment: -not necessarily. His last creat with nephrology (12/20/23) was 2.6 -However, we will intensify his diuretics, and this may worsen his kidney function. I printed a comprehensive note from nephrology for our office. Status: Acute (3) CKD (chronic kidney disease) stage 4, GFR 15-29 ml/min: Problem comment: Cr trend: 1.2 in 2020 -> 1.4 in 2021 -> 1.6 in 2022 -> 1.8 in early 2023 -> 2.6- 2.9 in . The jump this year was felt to be secondary to adding toresmide in October, progressive CHF/Aortic stenosis. pt would not want dialysis monitor electrolytes; aleve pulmonary congestion/dyspnea [facility] ([facility]) Richard Fermin MD Status: Acute (4) CAP (community acquired pneumonia): Problem comment: -soft call but ground glass opacity in the RLL could be infectious; will treat -elevated procal and CRP (pt reports chills) -legionella and strep pneumo pending -minimal oxygen need -no steroids currently -continue nebs and then home COPD meds Status: Acute (5) Aortic stenosis: Problem comment: -will update study 01/20/24 Status: Acute (6) HTN (hypertension): Problem comment: -losartan, continue Status: Acute (7) Type 2 DM with CKD stage 4 and hypertension: Problem comment: -glucose monitoring. -Last A1C at goal -diet managed Status: Acute (8) COPD (chronic obstructive pulmonary disease): Problem comment: -managed by primary care -Supa Cannon Status: Acute (9) Morbid obesity: Status: Acute
[2024-01-19 20:48] LABS: Appearance Urine Clear (Clear); Bilirubin Urine Negative (Negative); Blood Urine 1+ (Negative); Color Urine Yellow (Yellow); Glucose Urine Negative (Negative); Ketones Urine Negative (Negative); Leukocyte Esterase Urine Negative (Negative); Nitrite Urine Negative (Negative); Protein Urine 2+ (Negative); Urobilinogen Urine 0.2 (0.2-1.0); pH Urine 5.5 (5.0-8.5)
[2024-01-19 20:55] LABS: Amorphous Sediment Urine Many; Squamous Epithelial Cell Urine Few (None-Few); WBC Urine 0-2 (0-5)
[2024-01-19 21:16] LABS: Procalcitonin* 0.51 ng/mL (<0.50)
[2024-01-19] MEDS: cefTRIAXone 1 GM in 0.9 % SODIUM CHLORIDE Mini-bag 100 ML IVPB (22:06)
[2024-01-19] MEDS: BUDESONIDE 0.5 MG/2ML NEB NEB (22:06)
[2024-01-19] MEDS: FUROSEMIDE 10 MG/ML inj 40 MG IVP (22:07)
[2024-01-19] MEDS: AZITHROMYCIN 250 MG TABLET 500 MG PO (22:07)
[2024-01-19] MEDS: SODIUM CHLORIDE 0.9 % (FLUSH) 10 ML SYRINGE 5 ML IVF (22:07)
[2024-01-19] MEDS: ENOXAPARIN 30 MG/0.3ML INJ SUBCUT (22:21)
[2024-01-19 22:56] LABS: Appearance Urine Clear (Clear); Bilirubin Urine Negative (Negative); Blood Urine 2+ (Negative); Color Urine Yellow (Yellow); Glucose Urine Negative (Negative); Ketones Urine Negative (Negative); Leukocyte Esterase Urine Negative (Negative); Nitrite Urine Negative (Negative); Protein Urine 1+ (Negative); Specific Gravity Urine 1.015 (1.000-1.030); Urobilinogen Urine 0.2 (0.2-1.0); pH Urine 5.5 (5.0-8.5)
[2024-01-19 23:05] LABS: Amorphous Sediment Urine Few; Bacteria Urine Few; RBC Urine 0-2 (0-2); Squamous Epithelial Cell Urine Few (None-Few)
[2024-01-19 23:24] LABS: Legionella pneumo Ag Urine L. pneumo Negative (Negative); S pneumo Ag Urine S. pneumo Negative (Negative)
[2024-01-20] VITALS (10 sets, daily range): BP systolic 120–145; BP diastolic 62–84; PULSE 84–120; RESP 24–26; TEMP 36.8–38.8; O2SAT 93–98
--- NOTE | 2024-01-20 05:51 | PC.NURSE ---
Shift note: Pt arrived at the unit at 2120 accompanied by 2 sons and . Pt was alert and oriented with occasional confusion. Diminished lung sound to the right, left lung is clear, murmur sound heard. Byers inserted to accommodate diuretics due yo weakness and exertional SOB per MD order. Systolic Bp slightly elevated. O2> 90% on room air. Pt had 2 loose stools tonight. No fever , SOB or chest pain recorded. Pt ambulated slowly wit 1-2 assist.
[2024-01-20 06:46] LABS: Hematocrit 35.1 % (37.0-53.0); Hemoglobin* 11.5 gm/dL (13.5-17.5); Mean Corpuscular HGB Conc 33 gm/dL (32-36); Mean Corpuscular Hemoglobin 31 pg (26-34); Mean Corpuscular Volume 94 fL (80-100); Platelet Count* 146 K/uL (140-440); Red Blood Count 3.75 m/uL (4.30-5.90); White Blood Count* 8.53 K/uL (4.50-11.00)
[2024-01-20 07:06] LABS: Slide Review Reflex No
[2024-01-20 07:23] LABS: Albumin* 4.1 g/dL (3.3-5.0); Chloride* 101 mmol/L (96-114); Potassium* 4.5 mmol/L (3.6-5.1); Sodium* 131 mmol/L (135-149)
[2024-01-20 07:25] LABS: Creatinine* 2.7 mg/dL (0.5-1.5); Est. Creatinine Clearance* 16.45; Estimated Glomerular Filt Rate 22 ml/min
[2024-01-20 07:26] LABS: Anion Gap 13 mEq/L (7-15); Blood Urea Nitrogen* 45 mg/dL (7-30); Carbon Dioxide* 17 mmol/L (20-32); Glucose* 105 mg/dL (60-115); Phosphorus* 2.6 mg/dL (2.5-4.5)
[2024-01-20 07:36] LABS: Hemoglobin A1C* 6.2 % (0-5.6)
[2024-01-20 07:37] LABS: Troponin I* 0.05 ng/mL (0.01-0.04)
[2024-01-20 07:41] LABS: Procalcitonin* 0.77 ng/mL (<0.50)
[2024-01-20 07:52] LABS: C Reactive Protein* 16.5 mg/dL (0.5-1.0)
[2024-01-20] MEDS: CLOPIDOGREL 75 MG TABLET PO (08:44)
[2024-01-20] MEDS: BUDESONIDE 0.5 MG/2ML NEB NEB ×2 (08:44→22:00)
[2024-01-20] MEDS: LOSARTAN POTASSIUM 50 MG TABLET PO (08:44)
[2024-01-20] MEDS: TORSEMIDE 20 MG TABLET PO (08:44)
[2024-01-20] MEDS: METOPROLOL SUCCINATE (XL) 25 MG TAB PO (08:44)
[2024-01-20] MEDS: TAMSULOSIN HCL 0.4 MG CAPSULE 0.8 MG PO (08:45)
[2024-01-20] MEDS: SODIUM CHLORIDE 0.9 % (FLUSH) 10 ML SYRINGE 5 ML IVF ×2 (08:47→23:27)
--- NOTE | 2024-01-20 10:34 | NUTR.NU ---
RDN with diet education related to heart failure. Patient admitted with heart failure and chronic kidney disease stage 4. Current weight 226 lb 9oz; height 5ft 5in; BMI 37.7 kg/m2. Weight has been stable recently. Current diet order is Regular. No meal intakes recorded since admit yet. RDN visited with patient and , Alia, whom reports he does not follow a specific diet at home, however he does not salt his food and has been eating smaller portions. He enjoys meats and sweets the most. RDN offered diet education related to heart healthy diet, however patient declined at this time. He did accept educational materials related to Heart Healthy diet. He declined diet order change to Heart Healthy diet. Handouts provided. RDN's contact information provided and encouraged patient to call with questions. RDN to follow up as needed.
--- NOTE | 2024-01-20 10:52 | P.IMPN_ITS ---
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 Mcgraw). will update echo. Lasix 40mg IV, monitor UOP/response, electrolytes Lopez ok for comfort Likely needs more diuresis than 10mg torsemide - 01/19 wt unchanged from admission to floor yesterday. Cr stable; persistent crackles and LE edema. Received torsemide 20 mg po this am. Will give lasix 40 mg x 2 doses today. Recheck wt and Cr in am. Will likely need torsemide 20 mg daily for homegoing. Monitor BP and symptoms with this extra diuresis since patient has known moderate . ECHO today. Will need lopez out tomorrow if discharging. Status: Acute (2) Acute kidney injury superimposed on stage 4 chronic kidney disease: Problem details: -not necessarily. His last creat with nephrology (12/20/23) was 2.6 -However, we will intensify his diuretics, and this may worsen his kidney function. I printed a comprehensive note from nephrology for our office. - 01/19 I agree that this is unlikely ARF and more likely his new normal with diuresis. CKD stage 4. Cr stable with diuresis overnight. Continue to monitor with inpatient diuresis. Status: Ruled-out (3) CAP (community acquired pneumonia): Problem details: -soft call but ground glass opacity in the RLL could be infectious; will treat -elevated procal and CRP (pt reports chills) -legionella and strep pneumo pending -minimal oxygen need -no steroids currently -continue nebs and then home COPD meds - 01/19 Tm 99.6 yesterday evening. Procal, CRP elevated. Mildly tachycardic. EKG yesterday shows sinus rhythm, HR 98. Mildly tachypneic 24, not hypoxic, not dyspneic. Continue nebs, ceftriaxone, azithromycin. Status: Acute (4) Type 2 DM with CKD stage 4 and hypertension: Problem details: -glucose monitoring. -A1C 6.2% 01/20/24 -diet managed Status: Chronic (5) HTN (hypertension): Problem details: -losartan, continue Status: Chronic (6) COPD (chronic obstructive pulmonary disease): Problem details: -managed by primary care -Supa Cannon Status: Chronic (7) Aortic stenosis: Problem details: -will update study 01/20/24 Status: Chronic (8) CKD (chronic kidney disease) stage 4, GFR 15-29 ml/min: Problem details: Cr trend: 1.2 in 2020 -> 1.4 in 2021 -> 1.6 in 2022 -> 1.8 in early 2023 -> 2.6- 2.9 in . The jump this year was felt to be secondary to adding toresmide in October, progressive CHF/Aortic stenosis. pt would not want dialysis monitor electrolytes; aleve pulmonary congestion/dyspnea [facility], [facility] ([facility]) Richard Fermin MD Status: Chronic (9) Morbid obesity: Status: Chronic (10) Elevated troponin: Problem details: - Denies CP. Suspect elevated due to HF. Recheck in am. Status: Acute Plan Appreciate PT and OT evaluation. Anticipate patient will be able to go home with his family over the weekend. Subjective Date Seen: 01/20/24 Interval history: Walter's family was in the room with him this morning. His , Alia, his son, Jose, and his granddaughter, Hannah. Walter tells me that he is feeling better today, and his dyspnea is gone. His son tells me that he thinks that Walter over did it when he was digging out a drainage area 2 days ago. We discussed the imaging results and history of aortic stenosis and aortic aneurysms. Walter tells me that he is 89 and does not want anything invasive, including surgeries. He is okay with hospital admissions and IV medications. He is hoping to go home today or tomorrow. We also discussed dyspnea, pneumonia, heart failure, echocardiogram, chronic kidney disease, recommended repeat outpatient chest imaging, aortic stenosis, and thoracic/abdominal aortic aneurysm. Family is wondering how well he ambulates, but they also note that even if he is 2 person assist they can care for him at home because his son, Jose, lives with them, his other son lives nearby and can come help, and Hannah also lives nearby and is willing to come and help. Therapies saw him today and noted that he is ambulating independently with his walker. Exam Narrative: Exam Narrative: weight 01/19/24 (ER) 106.6 kg 01/19/24 (medical floor) 102.6 kg 01/20/24 (medical floor) 102.6 kg General: No acute distress. Awake, alert, oriented x3. Pleasant, jovial. No pallor. No jaundice. Oropharynx: Clear. Mucous membranes moist. Cardiovascular: Regular rate and rhythm. Grade 3/6 systolic murmur loudest in the right upper sternal border, radiates to both carotids. Respiratory: Fine bibasilar crackles, left slightly greater than right. Abdomen: Bowel sounds present. Soft, nondistended, nontender. Extremities: 1+ bilateral pitting edema at ankles. Const: Vital Signs, click to edit/add: Vital Signs - 24 hr 01/19/24 16:26 01/19/24 17:11 01/19/24 17:15 Temperature 99.6 F Pulse Rate 104 H 103 H Pulse Rate [Left P ulse Oximeter] Pulse Rate [Right Pulse Oximeter] 104 H Respiratory Rate 28 H 30 H Blood Pressure Blood Pressure [Le ft Arm] Blood Pressure [Le ft Upper Arm] 152/74 H Pulse Oximetry 94 92 94 Oxygen Delivery Me thod Room Air Room Air 01/19/24 17:22 01/19/24 17:30 01/19/24 18:48 Temperature Pulse Rate 99 100 96 Pulse Rate [Left P ulse Oximeter] Pulse Rate [Right Pulse Oximeter] Respiratory Rate 30 H Blood Pressure 126/49 L Blood Pressure [Le ft Arm] Blood Pressure [Le ft Upper Arm] Pulse Oximetry 94 92 92 Oxygen Delivery Me thod 01/19/24 18:49 01/19/24 19:23 01/19/24 19:30 Temperature Pulse Rate 97 98 97 Pulse Rate [Left P ulse Oximeter] Pulse Rate [Right Pulse Oximeter] Respiratory Rate 30 H Blood Pressure 150/76 H Blood Pressure [Le ft Arm] Blood Pressure [Le ft Upper Arm] Pulse Oximetry 93 91 92 Oxygen Delivery Me thod Room Air 01/19/24 19:45 01/19/24 20:00 01/19/24 20:00 Temperature Pulse Rate 99 94 Pulse Rate [Left P ulse Oximeter] Pulse Rate [Right Pulse Oximeter] Respiratory Rate 30 H Blood Pressure Blood Pressure [Le ft Arm] Blood Pressure [Le ft Upper Arm] Pulse Oximetry 91 95 94 Oxygen Delivery Me thod Room Air Room Air 01/19/24 20:15 01/19/24 20:30 01/19/24 21:30 Temperature 98.4 F Pulse Rate 105 H 99 Pulse Rate [Left P ulse Oximeter] Pulse Rate [Right Pulse Oximeter] Respiratory Rate 32 H 28 H Blood Pressure 146/86 H Blood Pressure [Le ft Arm] 138/78 Blood Pressure [Le ft Upper Arm] Pulse Oximetry 94 94 93 Oxygen Delivery Me thod Room Air Room Air 01/19/24 21:41 01/19/24 22:49 01/19/24 22:51 Temperature 98.4 F Pulse Rate Pulse Rate [Left P ulse Oximeter] 96 Pulse Rate [Right Pulse Oximeter] Respiratory Rate 28 H 28 H Blood Pressure Blood Pressure [Le ft Arm] 138/73 Blood Pressure [Le ft Upper Arm] Pulse Oximetry 93 94 94 Oxygen Delivery Me thod Room Air Room Air 01/19/24 22:52 01/19/24 23:00 01/19/24 23:23 Temperature Pulse Rate 92 Pulse Rate [Left P ulse Oximeter] 96 Pulse Rate [Right Pulse Oximeter] Respiratory Rate 28 H 28 H Blood Pressure Blood Pressure [Le ft Arm] Blood Pressure [Le ft Upper Arm] Pulse Oximetry 94 Oxygen Delivery Me thod Room Air 01/20/24 03:00 01/20/24 07:00 Temperature 98.4 F 98.5 F Pulse Rate Pulse Rate [Left P ulse Oximeter] 84 103 H Pulse Rate [Right Pulse Oximeter] Respiratory Rate 24 24 Blood Pressure Blood Pressure [Le ft Arm] 145/84 H 131/75 Blood Pressure [Le ft Upper Arm] Pulse Oximetry 94 96 Oxygen Delivery Il thod Room Air Room Air Labs Labs: Laboratory Results - last 24 hr 01/19/24 01/19/24 01/19/24 17:20 17:40 17:45 WBC 8.50 RBC 3.87 L Hgb 11.9 L Hct 36.8 L MCV 95 MCH 31 MCHC 32 RDW Coeff of Sissy 13.2 Plt Count 152 Neut % (Auto) 83.3 H Lymph % (Auto) 4.0 L [place] % (Auto) 8.0 Eos % (Auto) 4.2 Baso % (Auto) 0.1 Neut # (Auto) 7.10 H Lymph # (Auto) 0.30 L [place] # (Auto) 0.70 Eos # (Auto) 0.36 Baso # (Auto) 0.01 Abs Immat Gran (auto) 0.03 Imm/Tot Granulo (auto) 0.4 VBG pH 7.335 VBG pCO2 42 VBG pO2 35.0 VBG HCO3 22 Sodium 134 L Potassium 5.2 H Chloride 103 Carbon Dioxide 22 Anion Gap 9 BUN 43 H Creatinine 2.7 H Estimated Creat Clear 16.45 Estimated GFR 22 Glucose 104 Hemoglobin A1c Lactate 1.1 Calcium 8.3 L Phosphorus Total Bilirubin 0.5 Direct Bilirubin 0.2 AST 27 ALT 15 Alkaline Phosphatase 53 Troponin I 0.02 C-Reactive Protein > 9.0 H NT-Pro-B Natriuret Pep 4580 Total Protein 7.2 Albumin 4.3 Procalcitonin 0.51 H TSH 3.900 Urine Color Urine Appearance Urine pH Ur Specific [place] Urine Protein Urine Glucose (UA) Urine Ketones Urine Blood Urine Nitrite Urine Bilirubin Urine Urobilinogen Ur Leukocyte Esterase Urine RBC Urine WBC Ur Squamous Epith Cells Amorphous Sediment Urine Bacteria Urine L. pneumophilia Ag Urine Strep pneumoniae Ag SARS-CoV-2 (PCR) Negative SARS-CoV-2 Influenza Type A (PCR) Negative PCR FLU A Influenza Type B (PCR) Negative PCR FLU B RSV (PCR) Negative PCR RSV Lab Acknowledgement Test Added 01/19/24 01/19/24 01/20/24 20:34 22:42 06:37 WBC 8.53 RBC 3.75 L Hgb 11.5 L Hct 35.1 L MCV 94 MCH 31 MCHC 33 RDW Coeff of Sissy Plt Count 146 Neut % (Auto) Lymph % (Auto) [place] % (Auto) Eos % (Auto) Baso % (Auto) Neut # (Auto) Lymph # (Auto) [place] # (Auto) Eos # (Auto) Baso # (Auto) Abs Immat Gran (auto) Imm/Tot Granulo (auto) VBG pH VBG pCO2 VBG pO2 VBG HCO3 Sodium 131 L Potassium 4.5 Chloride 101 Carbon Dioxide 17 L Anion Gap 13 BUN 45 H Creatinine 2.7 H Estimated Creat Clear 16.45 Estimated GFR 22 Glucose 105 Hemoglobin A1c 6.2 H Lactate Calcium 8.0 L Phosphorus 2.6 Total Bilirubin Direct Bilirubin AST ALT Alkaline Phosphatase Troponin I 0.05 H C-Reactive Protein 16.5 H NT-Pro-B Natriuret Pep Total Protein Albumin 4.1 Procalcitonin 0.77 H TSH Urine Color Yellow Yellow Urine Appearance Clear Clear Urine pH 5.5 5.5 Ur Specific [place] 1.020 1.015 Urine Protein 2+ A 1+ A Urine Glucose (UA) Negative Negative Urine Ketones Negative Negative Urine Blood 1+ A 2+ A Urine Nitrite Negative Negative Urine Bilirubin Negative Negative Urine Urobilinogen 0.2 0.2 Ur Leukocyte Esterase Negative Negative Urine RBC 2-5 A 0-2 Urine WBC 0-2 2-5 Ur Squamous Epith Cells Few Few Amorphous Sediment Many A Few A Urine Bacteria None Few A Urine L. pneumophilia Ag L. pneumo Negative Urine Strep pneumoniae Ag S. pneumo Negative SARS-CoV-2 (PCR) Influenza Type A (PCR) Influenza Type B (PCR) RSV (PCR) Lab Acknowledgement
[2024-01-20] MEDS: FUROSEMIDE 10 MG/ML inj 40 MG IVP ×2 (11:52→20:04)
[2024-01-20] MEDS: IPRAT-ALBUT 0.5-2.5 MG/3 ML NEB 1 NEB IH (14:25)
--- NOTE | 2024-01-20 14:58 | PC.NURSE ---
End of shift-- Very pleasant and cooperative, alert and oriented patient. VSS and pt is afebrile. SPO2 maintained >90% on RA. LS diminished with a few fine crackles noted in bases. Telemetry shows Sinus tachycardia with occasional PACs and PVCs. Pronounced murmur. 1-2+ pitting edema noted in bilateral LE. Pt had echo at bedside today and tolerated it well. He denied nausea and ate 75-100% of a regular breakfast independently, but refused lunch. Pt has had 4x small liquid BMs today. He was up to the BR and chair with SBA and tolerated it fairly well. He did become SOB with exertion this afternoon and was given a nebulizer PRN with apparent relief. Family was at bedside this afternoon and appear loving and supportive.
[2024-01-20] MEDS: ACETAMINOPHEN 325 MG TABLET PO (15:29)
[2024-01-20] MEDS: PRAVASTATIN SODIUM 20 MG TABLET 80 MG PO (20:04)
[2024-01-20] MEDS: VANCOMYCIN 2 GM/400 ML 2 GM/400 ML PIGGYBACK IVPB (20:07)
[2024-01-20] MEDS: AZITHROMYCIN 250 MG TABLET 500 MG PO (21:19)
[2024-01-20] MEDS: ENOXAPARIN 30 MG/0.3ML INJ SUBCUT (22:00)
--- NOTE | 2024-01-20 22:25 | PC.NURSE ---
PT VSS with the exception of a febrile episode earlier with a temp. of 101.4 PRN Tylenol given and lowered to 99.8 after recheck. Tolerated a regular diet. Pt in bed shift. Napped on and off and had family to visit. Started oral antibiotic this evening.
[2024-01-21] VITALS (13 sets, daily range): BP systolic 90–139; BP diastolic 50–83; PULSE 65–118; RESP 20–26; TEMP 36.4–38.8; O2SAT 92–98
[2024-01-21] MEDS: ACETAMINOPHEN 325 MG TABLET PO ×3 (00:05→16:42)
[2024-01-21 06:53] LABS: Basophils Absolute Auto 0.01 K/uL (0.00-0.30); Basophils Percent Auto 0.1 % (0.0-3.0); Eosinophils Absolute Auto 0.35 K/uL (0.00-0.50); Eosinophils Percent Auto 3.7 % (0.0-7.0); Hematocrit 36.5 % (37.0-53.0); Hemoglobin* 11.8 gm/dL (13.5-17.5); Immature Granulocytes Abs Auto 0.03 K/uL (0.00-0.30); Immature Granulocytes Pct Auto 0.3 %; Mean Corpuscular HGB Conc 32 gm/dL (32-36); Mean Corpuscular Hemoglobin 30 pg (26-34); Mean Corpuscular Volume 93 fL (80-100); Monocytes Percent Auto 10.3 % (0.0-11.0); Neutrophils Percent Auto 81.6 % (42.0-72.0); Platelet Count* 137 K/uL (140-440); RDW Coefficient of Variation % 13.1 % (11.5-15.5); Red Blood Count 3.92 m/uL (4.30-5.90); White Blood Count* 9.34 K/uL (4.50-11.00)
[2024-01-21 07:00] LABS: Slide Review Reflex No
[2024-01-21 07:13] LABS: Chloride* 98 mmol/L (96-114); Potassium* 4.3 mmol/L (3.6-5.1); Sodium* 131 mmol/L (135-149)
[2024-01-21 07:16] LABS: Creatinine* 3.1 mg/dL (0.5-1.5); Est. Creatinine Clearance* 14.33; Estimated Glomerular Filt Rate 19 ml/min
[2024-01-21 07:17] LABS: Anion Gap 13 mEq/L (7-15); Blood Urea Nitrogen* 53 mg/dL (7-30); Carbon Dioxide* 20 mmol/L (20-32); Glucose* 128 mg/dL (60-115)
[2024-01-21 07:22] LABS: Troponin I* 0.04 ng/mL (0.01-0.04)
[2024-01-21 07:54] LABS: C Reactive Protein* 19.6 mg/dL (0.5-1.0)
--- NOTE | 2024-01-21 08:21 | PC.NURSE ---
Shift note ([id number]): Patient pleasant, alert and oriented. PRN Tylenol given for fever of 101.9. Recheck temp 99.2. Ambulated with wheeled walker and stand-by assist. Denied pain. Byers catheter patent and draining cloudy, straw-colored urine with sediment. ?
[2024-01-21] MEDS: BUDESONIDE 0.5 MG/2ML NEB NEB ×2 (08:31→21:04)
[2024-01-21] MEDS: APIXABAN 5 MG TABLET 2.5 MG PO ×2 (08:31→21:04)
[2024-01-21] MEDS: METOPROLOL TARTRATE 1 MG/ML inj 5 MG IVP ×2 (08:31→10:15)
[2024-01-21] MEDS: TAMSULOSIN HCL 0.4 MG CAPSULE 0.8 MG PO (08:32)
[2024-01-21] MEDS: SODIUM CHLORIDE 0.9 % (FLUSH) 10 ML SYRINGE 5 ML IVF ×3 (08:32→21:12)
[2024-01-21] MEDS: METOPROLOL SUCCINATE (XL) 25 MG TAB 50 MG PO (08:32)
[2024-01-21] MEDS: IPRAT-ALBUT 0.5-2.5 MG/3 ML NEB 1 NEB IH (08:41)
--- NOTE | 2024-01-21 10:51 | PT.IPE ---
New orders received due to pt change in status. Per RN, Pt is not appropriate for PT eval today due to new A-fib with RVR and sepsis with fever. Will f/u tomorrow if pt is appropriate.
[2024-01-21] MEDS: dilTIAZem 30 MG TABLET PO ×2 (11:26→15:30)
--- NOTE | 2024-01-21 15:42 | PC.NURSE ---
End of shift-- Very pleasant and cooperative, alert and oriented patient. Tachycardic this morning with HR from 100-140s, and mildly hypotensive with B/Ps as low as 90/50 and MD is aware. Tachypneic with RR from 24-30. Highest temp this shift was 99.1 F. SPO2 maintained >94% on RA. Telemetry showed afib with RVR. Pt given Metoprolol and Cardiazem per MD order. See eMAR for details. Expiratory wheezes auscultated throughout lung cisneros this morning and pt was given PRN neb with improvement noted. He denied nausea, but ate only a cup of peaches and drank coffee today per his request. He had 1x loose BM today. Byers was removed at 11:30 this morning and pt has not voided since, next nurse was notified during report. He was up to the chair and commode with SBA. This morning patient's heart rate increased to 150s following ambulation, but this afternoon, patient tolerated it fairly well. Report to ANIVAL Tijerina.
--- NOTE | 2024-01-21 16:19 | P.IMPN_ITS ---
Progress Note: A&P Assessment and plan (1) Bacteremia: Problem details: GPC in single BC 23.5 hours. Start vancomycin. No obvious source for bacteremia. Serial cultures. 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 Now with AFib contributing to heart failure. Status: Acute (3) Acute kidney injury superimposed on stage 4 chronic kidney disease: Problem details: Acute on chronic kidney injury. Baseline creatinine in 11/18/2023 was 1.7. Now 3.1. EGFR 19. Potassium and bicarb are normal Status: Ruled-out (4) Atrial fibrillation with RVR: Problem details: Echo shows EF of 59 % and severe , rate control and anticoagulate. Requiring both metoprolol and diltiazem for rate control Status: Acute (5) Aortic stenosis, severe: Problem details: I think it is likely his heart failure is primarily due to aortic stenosis. Likely needs consideration of TAVR versus palliative care/hospice if he declines TAVR Status: Acute Plan Discussed management of these 5 critical problems listed above. Patient is reluctant to proceed with aggressive evaluation and treatment but his family is strongly urging him to move ahead with that. Family meeting today to discuss this. At this point there is consensus that treating the acute problems of bacteremia, heart failure, acute kidney injury, AFib with RVR are appropriate and desirable. Aortic stenosis treatment is still being discussed. Time Spent With Patient Total time spent: Total time spent today is 70 minutes in evaluation management and family meeting (30 mins) to discuss evaluation and management. Subjective Date Seen: 01/21/24 Interval history: 89 y/o WM with a PMH of CKD stage 4 worsening this year, aortic stenosis, HFpEF (diastyolic), COPD, DM presents with acute onset of SOB, chills (needing several blankets overnight) and weakness needing help to get up and walk. He was in his baseline stable health yesterday and did a chore near his deck and the SOB hit him and he had trouble getting in the house. He felt weak, chilled, SOB. No real cough or wheeze. He has mild COPD at baseline. He slept ok overnight (No CPAP or oxygen at home) but this morning he had weakness, chills and SOB worse than the day before. He was brought to the ED by family. At the time of admission he was felt to have heart failure as well as possible pneumonia. Treated with IV furosemide and community-acquired pneumonia antibiotics. On January 19, just under 24 hours into his admission he had a positive blood culture for Gram-positive cocci. He also began spiking fevers of 101-102 F. Antibiotics were switched to vancomycin pending cultures. No obvious focal infection to account for bacteremia was identified on initial screening. January 20: During the night he went into AFib with RVR. This morning he had rate control with increased metoprolol and then diltiazem was added for better rate control. He is quite dyspneic with any activity. He is able to eat. Exam Narrative: Exam Narrative: He is alert and appears to have mild increased work of breathing. He is able to carry on a conversation and is oriented to his circumstances. He does not remember a lot of details from our conversation last night and earlier this morning when I visit with him and his family. Respirations with occasional wheezing and prolonged expiratory phase. No significant basilar crackles or consolidation. Cardiovascular: S1, S2, irregularly irregular. 2/6 systolic ejection murmur. Abdomen is soft without tenderness or mass. Skin is without obvious open lesion/infection. Extremities with trace edema. He moves all 4 extremities well Const: Vital Signs, click to edit/add: Vital Signs - 24 hr 01/20/24 19:00 01/20/24 20:31 01/20/24 22:00 Temperature 99.8 F H 99.8 F H Pulse Rate Pulse Rate [Left P ulse Oximeter] 92 Respiratory Rate 24 Blood Pressure [Le ft Arm] 138/74 Pulse Oximetry 96 96 Oxygen Delivery Me thod Room Air 01/20/24 23:00 01/21/24 00:05 01/21/24 03:00 Temperature 101.9 F H 101.9 F H 99.2 F Pulse Rate Pulse Rate [Left P ulse Oximeter] 120 H 96 Respiratory Rate 26 H 24 Blood Pressure [Le ft Arm] 120/73 119/53 L Pulse Oximetry 93 96 Oxygen Delivery Me thod Room Air Room Air 01/21/24 04:50 01/21/24 07:00 01/21/24 07:00 Temperature 99.1 F Pulse Rate 104 H Pulse Rate [Left P ulse Oximeter] 118 H 118 H Respiratory Rate 24 24 Blood Pressure [Le ft Arm] 108/76 Pulse Oximetry 98 Oxygen Delivery Me thod Room Air 01/21/24 07:00 01/21/24 09:40 01/21/24 11:00 Temperature 97.6 F Pulse Rate 103 H Pulse Rate [Left P ulse Oximeter] 107 H Respiratory Rate 22 Blood Pressure [Le ft Arm] 101/56 L 90/50 L Pulse Oximetry 94 Oxygen Delivery Me thod Room Air 01/21/24 11:33 01/21/24 15:00 Temperature 97.6 F 99.2 F Pulse Rate Pulse Rate [Left P ulse Oximeter] 80 Respiratory Rate 20 Blood Pressure [Le ft Arm] 131/83 Pulse Oximetry 96 Oxygen Delivery Me thod Room Air Documenting provider has reviewed patient's vital signs: yes Labs Labs: Laboratory Results - last 24 hr 01/21/24 05:49 WBC 9.34 RBC 3.92 L Hgb 11.8 L Hct 36.5 L MCV 93 MCH 30 MCHC 32 RDW Coeff of Sissy 13.1 Plt Count 137 L Neut % (Auto) 81.6 H Lymph % (Auto) 4.0 L [place] % (Auto) 10.3 Eos % (Auto) 3.7 Baso % (Auto) 0.1 Neut # (Auto) 7.60 H Lymph # (Auto) 0.40 L [place] # (Auto) 1.00 H Eos # (Auto) 0.35 Baso # (Auto) 0.01 Abs Immat Gran (auto) 0.03 Imm/Tot Granulo (auto) 0.3 Sodium 131 L Potassium 4.3 Chloride 98 Carbon Dioxide 20 Anion Gap 13 BUN 53 H Creatinine 3.1 H Estimated Creat Clear 14.33 Estimated GFR 19 Glucose 128 H Calcium 8.0 L Troponin I 0.04 C-Reactive Protein 19.6 H
[2024-01-21] MEDS: PRAVASTATIN SODIUM 20 MG TABLET 80 MG PO (18:24)
--- NOTE | 2024-01-21 18:55 | PC.NURSE ---
Patient pleasant and cooperative. Denies pain. Up to bathroom and chair with SBA, walker and gait belt. Temp 99.2 and patient c/o chills. PRN Tylenol given x1. Temp decreased to 98.2
[2024-01-22] MEDS: dilTIAZem 30 MG TABLET PO ×3 (00:27→07:50)
[2024-01-22 03:00] VITALS: BP 140/79; PULSE 89; RESP 18; TEMP 36.9; O2SAT 93
[2024-01-22] MEDS: ONDANSETRON 2 MG/ML inj 4 MG IVP (03:55)
[2024-01-22] MEDS: SODIUM CHLORIDE 0.9 % (FLUSH) 10 ML SYRINGE 5 ML IVF ×2 (03:55→09:02)
--- NOTE | 2024-01-22 06:57 | PC.NURSE ---
End of shift report [id number]: Pleasant and cooperative with cares. Denies any pain this shift. Lung sounds clear in upper airways and diminished in right base and fine crackles in left base. Patient noted to be tachypneic, respirations 26, patient denies any shortness of breath with tachypnea. O2 sats maintained >90% on room air. Lips, nose and finger tips dusky in appearance. Requesting to sit up in chair as it feels easier to breath while sitting up, attempted to lay in bed with head elevated but patient not tolerating well. Transfer with heavy assist x 1 with gait belt and walker, patient reporting increased weakness after transferring into bathroom and unable to stand and bear weight. Ariadna steady utilized for transfer and tolerated well. Remained continent of bladder throughout the night, voiding moderate amount of yellow, clear urine. BLE edema +2 pitting
[2024-01-22 06:59] LABS: Basophils Absolute Auto 0.02 K/uL (0.00-0.30); Basophils Percent Auto 0.2 % (0.0-3.0); Eosinophils Absolute Auto 0.27 K/uL (0.00-0.50); Eosinophils Percent Auto 2.9 % (0.0-7.0); Hematocrit 34.5 % (37.0-53.0); Hemoglobin* 11.4 gm/dL (13.5-17.5); Immature Granulocytes Abs Auto 0.03 K/uL (0.00-0.30); Immature Granulocytes Pct Auto 0.3 %; Lymphocytes Percent Auto 4.4 % (20-44); Mean Corpuscular HGB Conc 33 gm/dL (32-36); Mean Corpuscular Hemoglobin 30 pg (26-34); Mean Corpuscular Volume 92 fL (80-100); Monocytes Percent Auto 9.5 % (0.0-11.0); Neutrophils Percent Auto 82.7 % (42.0-72.0); Platelet Count* 143 K/uL (140-440); Red Blood Count 3.76 m/uL (4.30-5.90); White Blood Count* 9.26 K/uL (4.50-11.00)
[2024-01-22 07:00] VITALS: BP 113/67; PULSE 90; PULSE 91; PULSE 97; RESP 22; TEMP 37.2; O2SAT 93
[2024-01-22 07:02] LABS: Slide Review Reflex No
[2024-01-22 07:17] LABS: Chloride* 95 mmol/L (96-114); Potassium* 4.3 mmol/L (3.6-5.1); Sodium* 127 mmol/L (135-149)
[2024-01-22 07:20] LABS: Creatinine* 3.3 mg/dL (0.5-1.5); Est. Creatinine Clearance* 13.46; Estimated Glomerular Filt Rate 17 ml/min
[2024-01-22 07:21] LABS: Anion Gap 14 mEq/L (7-15); Blood Urea Nitrogen* 59 mg/dL (7-30); Calcium* 7.7 mg/dL (8.4-10.6); Carbon Dioxide* 18 mmol/L (20-32); Glucose* 130 mg/dL (60-115)
--- NOTE | 2024-01-22 08:05 | CRLHL7_ITS ---
For Patients: As a result of the Cures Act, medical imaging exams and procedure reports are released immediately into your electronic medical record. You may view this report before your referring provider. If you have questions, please contact your health care provider. INDICATION: Follow-up CHF TECHNIQUE: 1 view chest radiograph COMPARISON: CT chest 01/19/2024 FINDINGS: Devices: None. Lung volumes are good. Mild pulmonary edema. Small left pleural effusion. No pneumothorax. Heart size is enlarged but similar to prior. IMPRESSION: Mild pulmonary edema and small left pleural effusion. Does not appear appreciably different than the recent CT when accounting for differences in technique. Dictated by Lucy Okeefe MD @ 01/22/2024 8:41:56 AM (Electronically Signed)
[2024-01-22] MEDS: APIXABAN 5 MG TABLET 2.5 MG PO (09:01)
[2024-01-22] MEDS: BUDESONIDE 0.5 MG/2ML NEB NEB (09:01)
[2024-01-22] MEDS: METOPROLOL SUCCINATE (XL) 25 MG TAB 50 MG PO (09:01)
[2024-01-22] MEDS: TAMSULOSIN HCL 0.4 MG CAPSULE 0.8 MG PO (09:02)
--- NOTE | 2024-01-22 10:43 | P.DS_ITS ---
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 Now with AFib contributing to heart failure. (2) Bacteremia: Status: Acute Problem details: GPC in single BC 23.5 hours. Started renal dose vancomycin. Culture grew Staph epidermidis. No obvious source for bacteremia. Serial cultures negative at 48 hours. (3) Acute kidney injury superimposed on stage 4 chronic kidney disease: Status: Ruled-out Problem details: Acute on chronic kidney injury. Baseline creatinine in 11/18/2023 was 1.7. Now 3.1. EGFR 19. Potassium and bicarb are normal (4) Atrial fibrillation with RVR: Status: Acute Problem details: Echo shows EF of 59 % and severe , rate control and anticoagulate with apixaban. Requiring both metoprolol and diltiazem for rate control (5) Aortic stenosis, severe: Status: Acute Problem details: heart failure likely due to aortic stenosis primarily. Likely needs consideration of TAVR versus palliative care/hospice. Multiple severe comorbidities (6) AAA (abdominal aortic aneurysm): Status: Acute Problem details: [address] [facility]. On this admission has a 5.8 cm suprarenal abdominal aortic aneurysm noted (7) Fever: Status: Acute Problem details: During hospital stay developed fever of 101.9 F. Lasted for a day. Fever has resolved with no fever in the past 32 hours. Had blood culture positive for Staph epidermidis. Subsequent blood cultures are negative. Treated with vancomycin. (8) Diarrhea: Status: Acute Problem details: Had some diarrhea prior to admission. C diff testing pending on January 21 (9) COPD (chronic obstructive pulmonary disease): Status: Chronic Problem details: Has had minimal wheezing during this hospital stay. DS: Summary Hospital Course Hospital Course: 89 y/o WM with a PMH of CKD stage 4 worsening this year, aortic stenosis, HFpEF (diastyolic), COPD, DM presents with acute onset of SOB, chills (needing several blankets overnight) and weakness needing help to get up and walk. He was in his baseline stable health yesterday and did a chore near his deck and the SOB hit him and he had trouble getting in the house. He felt weak, chilled, SOB. No real cough or wheeze. He has mild COPD at baseline. He slept ok overnight (No CPAP or oxygen at home) but this morning he had weakness, chills and SOB worse than the day before. He was brought to the ED by family. At the time of admission he was felt to have heart failure as well as possible pneumonia. Treated with IV furosemide and community-acquired pneumonia antibiotics. On January 19, just under 24 hours into his admission he had a positive blood culture for Gram-positive cocci. He also began spiking fevers of 101-102 F. Antibiotics were switched to vancomycin pending cultures. No obvious focal infection to account for bacteremia was identified on initial screening. Pansensitive Staph epidermidis grew on culture. Subsequent blood cultures negative at 48 hours. January 20: During the night he went into AFib/flutter with RVR. This morning he had rate control with increased metoprolol and then diltiazem was added for better rate control. Started on apixaban. He is quite dyspneic with any activity. Diuretic and losartan held due to relatively low blood pressure. January 21: Continues to be very dyspneic with activity. Good heart rate control with AFib. He is able to eat but has no appetite and is eating very little. Having some diarrhea which began prior to admission. C diff test pending. My overall impression is is that his cardio-respiratory status is modestly worse over the last 2 days. Renal function is declining. Discussed with patient and family plan of care. Family is strongly in favor of more aggressive evaluation and treatment. Patient is agreeable to this. Discussed current status with Cardiology at [facility]. They accept him in transfer for ongoing evaluation and management of heart failure, AFib wi th RVR, acute on chronic kidney failure, Staph epidermidis bacteremia with fever. Time Spent with Patient Time attestation: Total time spent providing and/or coordinating discharge services: 60 minutes Exam Narrative: Exam Narrative: He is alert and appears in no obvious distress. Respirations with diminished breath sounds throughout and a few basilar crackles. No significant wheezing. Cardiovascular: S1, S2, irregular rhythm. 2/6 harsh systolic ejection murmur. Abdomen: Bowel sounds are present. Abdomen is soft. No tenderness. 1+ edema in his ankles. Const: Vital Signs, click to edit/add: Vital Signs - 24 hr 01/21/24 11:00 01/21/24 11:33 01/21/24 15:00 Temperature 97.6 F 97.6 F 99.2 F Pulse Rate Pulse Rate [Left P ulse Oximeter] 107 H 80 Respiratory Rate 22 20 Blood Pressure [Le ft Arm] 90/50 L 131/83 Pulse Oximetry 94 96 Oxygen Delivery Me thod Room Air Room Air 01/21/24 15:00 01/21/24 15:00 01/21/24 16:42 Temperature 99.2 F Pulse Rate 90 Pulse Rate [Left P ulse Oximeter] 80 Respiratory Rate 20 Blood Pressure [Le ft Arm] Pulse Oximetry Oxygen Delivery Me thod 01/21/24 18:15 01/21/24 19:00 01/21/24 22:00 Temperature 98.2 F 98.2 F Pulse Rate Pulse Rate [Left P ulse Oximeter] 65 Respiratory Rate 20 Blood Pressure [Le ft Arm] 97/57 L Pulse Oximetry 92 92 Oxygen Delivery Me thod Room Air 01/21/24 23:00 01/21/24 23:00 01/21/24 23:00 Temperature 99.2 F Pulse Rate 99 Pulse Rate [Left P ulse Oximeter] 103 H 103 H Respiratory Rate 26 H 26 H Blood Pressure [Le ft Arm] 139/76 Pulse Oximetry 93 Oxygen Delivery Me thod Room Air 01/22/24 03:00 01/22/24 03:00 01/22/24 07:00 Temperature 98.5 F 98.5 F 99 F Pulse Rate Pulse Rate [Left P ulse Oximeter] 89 89 91 Respiratory Rate 18 18 22 Blood Pressure [Le ft Arm] 140/79 H 140/79 H 113/67 Pulse Oximetry 93 93 93 Oxygen Delivery Me thod Room Air Room Air Room Air 01/22/24 07:00 01/22/24 07:00 Temperature Pulse Rate 90 Pulse Rate [Left P ulse Oximeter] 97 Respiratory Rate 22 Blood Pressure [Le ft Arm] Pulse Oximetry Oxygen Delivery Me thod Documenting provider has reviewed patient's vital signs: yes DS: Data Data Completed and Pending Labs on day of discharge: Labs from last 24 hours 01/22/24 05:40 WBC 9.26 RBC 3.76 L Hgb 11.4 L Hct 34.5 L MCV 92 MCH 30 MCHC 33 RDW Coeff of Sissy 13.0 Plt Count 143 Neut % (Auto) 82.7 H Lymph % (Auto) 4.4 L Robertson % (Auto) 9.5 Eos % (Auto) 2.9 Baso % (Auto) 0.2 Neut # (Auto) 7.70 H Lymph # (Auto) 0.40 L Robertson # (Auto) 0.90 Eos # (Auto) 0.27 Baso # (Auto) 0.02 Abs Immat Gran (auto) 0.03 Imm/Tot Granulo (auto) 0.3 Sodium 127 L Potassium 4.3 Chloride 95 L Carbon Dioxide 18 L Anion Gap 14 BUN 59 H Creatinine 3.3 H Estimated Creat Clear 13.46 Estimated GFR 17 Glucose 130 H Calcium 7.7 L C-Reactive Protein 24.0 H Preliminary micro results at discharge 01/21/24 05:49 Blood Culture - Preliminary Blood NO GROWTH AFTER [address] Chest/Ab/Pelvis: Radiologist's impression: INDICATION: Shortness of breath, chills, abdominal pain. TECHNIQUE: CT chest, abdomen and pelvis acquired without contrast. COMPARISON: None. FINDINGS: CHEST: Cardiovascular structures: Prominent heart size. Coronary artery calcifications. Thoracic aorta and main pulmonary artery are normal in caliber. Mediastinum and zack: No mass or adenopathy. Lungs and pleura: Pulmonary emphysema. Small left and trace right pleural effusions with compressive atelectasis. No pneumothorax. Incidental 1.9 centimeter right middle lobe pulmonary nodule. Additional focal 11 millimeter right lower lobe ground-glass nodule (series 3/image 53). Chest wall and axilla: No mass or adenopathy. Bones: No suspicious bone lesions. Unremarkable for age. ABDOMEN AND PELVIS: Liver: Unremarkable. Gallbladder and bile ducts: Tiny gallstone. Pancreas: Fatty atrophy. Spleen: Unremarkable. Adrenal glands: Unremarkable. Kidneys: Bilateral renal cysts. No hydronephrosis. Multiple nonobstructing stones in the left greater than right kidney. GI tract: Some fluid in the proximal colon. Colonic diverticulosis without diverticulitis. No bowel obstruction. Vascular structures: Aortoiliac arterial calcifications with 5.8 centimeter suprarenal abdominal aortic aneurysm. Lymph nodes: Unremarkable. Miscellaneous: Unremarkable. No free air or significant free fluid. Pelvic Organs: Prostatomegaly. Mildly distended bladder.. Bones: No suspicious bone lesions. Unremarkable for age. IMPRESSION: Some fluid in the proximal colon which can be seen with diarrheal illness. Incidental indeterminate 1.9 centimeter right middle lobe pulmonary nodule. Additional incidental 11 millimeter right lower lobe ground-glass nodule, possibly infectious/inflammatory in etiology. Recommend dedicated chest CT in 3 months to evaluate for resolution. Correlation with prior imaging would be helpful if available. Small left pleural effusion with compressive atelectasis. No definite pneumonia. Incidental 5.8 centimeter suprarenal abdominal aortic aneurysm. Colonic diverticulosis without diverticulitis. Tiny gallstone without acute cholecystitis. Otherwise, no acute intrathoracic or intra-abdominal/pelvic abnormality, including source of infection. Additional chronic findings as above. Discharge Plan Discharge Disposition: [facility] Discharge Location: [facility] Date of Admission: 01/19/24 21:15 Attending Provider on Discharge: Luis Carlos Xavier Primary Care Provider: Alex Sinclair Condition: Stable Discharge Orders: Transfer of Care to Other Hospital (ORDER); Ordered 01/22/24 Ordered By: Luis Carlos Xavier Oxygen: No
--- NOTE | 2024-01-22 10:45 | REH.PT ---
Per medical team pt low tolerance for activity today, planned transfer to [facility] this afternoon. Hold PT.
--- NOTE | 2024-01-22 10:46 | REH.OT ---
Attempted to see patient this AM. Pt reports feeling terribly. Then imaging arrived to image pt lungs. Later AM, was updated that pt is set to transfer to higher level of care, out of hospital. Will hold OT today.
[2024-01-22 11:00] VITALS: BP 133/80; PULSE 83; RESP 22; TEMP 37.4; O2SAT 91
[2024-01-22] MEDS: dilTIAZem 120 MG CAP.ER.24H PO (11:18)
[2024-01-22 12:56] LABS: C.Difficile Negative (Negative); CDIFFEPI 027 PRESUMPTIVE NEGATIVE (Negative)
--- NOTE | 2024-01-22 16:11 | PC.NURSE ---
Pt accepted to [facility]. Nurse to nurse report given to Ana. VS have been WNL and pt denies pain. temps 99.4-99.8 temporally, pt asymptomatic. Tele= a-fib with normal ventricular rate. Loose stools throughout the day, C-diff negative. Pt was transferred to [facility] via [facility] at 1609. Son updated via telephone and able to arrive just prior to transfer.
== END 2024-01-22 16:09 | disposition short-term general hospital (02) | DRG 291 ==
LOC: ED 20:41 → MEDSURG 21:01
PROVIDERS: Family Medicine; Admitting Provider Family Medicine; Emergency Provider Emergency Medicine; PCP Family Medicine; Visit Provider Family Medicine
DX: I13.0 Hypertensive heart and chronic kidney disease with heart failure and stage 1 through stage 4 chronic kidney disease, or unspecified chronic kidney disease (principal); I50.31 Acute diastolic (congestive) heart failure; J96.01 Acute respiratory failure with hypoxia; J18.9 Pneumonia, unspecified organism; J44.0 Chronic obstructive pulmonary disease with (acute) lower respiratory infection; N17.9 Acute kidney failure, unspecified; N18.4 Chronic kidney disease, stage 4 (severe); E87.1 Hypo-osmolality and hyponatremia; R78.81 Bacteremia; I48.91 Unspecified atrial fibrillation; E11.22 Type 2 diabetes mellitus with diabetic chronic kidney disease; I35.0 Nonrheumatic aortic (valve) stenosis; E66.01 Morbid (severe) obesity due to excess calories; Z68.37 Body mass index [BMI] 37.0-37.9, adult; E87.5 Hyperkalemia; B95.7 Other staphylococcus as the cause of diseases classified elsewhere; R19.7 Diarrhea, unspecified; R50.9 Fever, unspecified; I71.41 Pararenal abdominal aortic aneurysm, without rupture; R91.1 Solitary pulmonary nodule; I72.4 Aneurysm of artery of lower extremity; N40.0 Benign prostatic hyperplasia without lower urinary tract symptoms; Z87.891 Personal history of nicotine dependence
CPT/HCPCS: 36415; 51701; 71045; 71250; 74176; 80048; 80069; 80076; 81001; 82803; 82962; 83036; 83605; 83880; 84145; 84443; 84484; 85025; 85027; 86140; 87040; 87086; 87186; 87449; 87493; 87631; 87899; 93005; 93306; 94640; 97116; 97162; 97165; 97530; 99285; A9270; J0696; J1650; J1940; J2405; J3372; J7626

== ENCOUNTER 2024-01-22 16:00 | Outpatient (CLI) | payer MEDICARE, BC, SELFPAY | END 2024-01-22 16:01 | disposition home or self-care (01) | LOC: AMB 01-26 13:39 | PROVIDERS: PCP Family Medicine; Visit Provider Emergency Medicine | DX: I35.0 Nonrheumatic aortic (valve) stenosis (principal); I10 Essential (primary) hypertension | CPT/HCPCS: A0425; A0427 ==

== ENCOUNTER 2024-01-29 22:26 | Emergency (ER) | payer MEDICARE, BC, SELFPAY ==
[2024-01-29] VITALS (11 sets, daily range): BP systolic 165; BP diastolic 79–102; PULSE 98–109; RESP 18; TEMP 36.8; O2SAT 92–96; BMI 37.6
--- NOTE | 2024-01-29 22:56 | CRLHL7_ITS ---
For Patients: As a result of the Cures Act, medical imaging exams and procedure reports are released immediately into your electronic medical record. You may view this report before your referring provider. If you have questions, please contact your health care provider. INDICATION: Pain, numbness. TECHNIQUE: Left wrist 3 view. COMPARISON: None. FINDINGS: No acute fracture or dislocation. Degenerative changes throughout the visualized hand and wrist greatest at the 1st CMC joint and triscaphe. Mild soft tissue swelling about the wrist. IMPRESSION: Degenerative changes and mild soft tissue swelling. No fracture identified. Dictated by Magda Domínguez MD @ 01/29/2024 11:31:48 PM (Electronically Signed)
[2024-01-29 23:08] LABS: Basophils Percent Auto 0.1 % (0.0-3.0); Eosinophils Percent Auto 7.8 % (0.0-7.0); Hematocrit 37.9 % (37.0-53.0); Hemoglobin* 12.2 gm/dL (13.5-17.5); Immature Granulocytes Pct Auto 7.9 %; Lymphocytes Percent Auto 7.9 % (20-44); Mean Corpuscular HGB Conc 32 gm/dL (32-36); Mean Corpuscular Hemoglobin 30 pg (26-34); Mean Corpuscular Volume 93 fL (80-100); Monocytes Percent Auto 4.6 % (0.0-11.0); Neutrophils Percent Auto 71.7 % (42.0-72.0); Platelet Count* 297 K/uL (140-440); RDW Coefficient of Variation % 13.6 % (11.5-15.5); Red Blood Count 4.06 m/uL (4.30-5.90)
--- NOTE | 2024-01-29 23:09 | ED.GENADULT ---
HPI - General Adult General Date Seen: 01/29/24 Chief complaint: Extremity Pain/Injury, Upper Stated complaint: left arm numbness Time Seen by Provider: 01/29/24 22:35 Source: patient, EMS, RN notes reviewed and old records reviewed Mode of arrival: EMS Limitations: no limitations History of Present Illness HPI narrative: Patient is an 89-year-old gentleman, who presents here by Ambulance for evaluation of left arm numbness. He has had this since he woke up this morning at 7:00 a.m.. So the onsets been now for the last 16 hours, it comes and goes, worse when he moves his arm around he tells me, he initially said numbness, it feels better when he rubs it. It also hurts him. He describes pain associated over his wrist region into his hand. He does remember falling or injuring it, he says there is no relation to moving his neck. No history of falls or trauma, denies any fevers chills or sweats says the feeling is only from his elbow to his hand. Seems to feel it more on the palmar side of his hand than his dorsum. Denies any chest pain shortness of breath associated with this took some Tylenol today which he normally takes is said it did not help the pain. I am a little confused over this, as he interchangeably uses numbness and pain has what is going on. There is no change in his vision, he denies any slurring of his words her speech. He was recently hospitalized here and then transferred to [facility], and sent home on the 25 of January Related Data Home Medications ?Medication ?Instructions ?Recorded ?Confirmed albuterol sulfate 90 mcg/actuation 1 - 2 puff inhalation Q4H PRN 11/18/23 01/19/24 aerosol inhaler wheezing chlorthalidone 25 mg tablet 12.5 mg PO DAILY 11/18/23 01/19/24 clopidogrel 75 mg tablet 75 mg PO DAILY 11/18/23 01/19/24 ipratropium 0.5 mg-albuterol 3 mg 3 ml inhalation QID PRN 11/18/23 01/19/24 (2.5 mg base)/3 mL nebulization soln losartan 50 mg tablet 50 mg PO DAILY 11/18/23 01/19/24 metoprolol succinate 25 mg 25 mg PO DAILY 11/18/23 01/19/24 tablet,extended release 24 hr pravastatin 80 mg tablet 80 mg PO HS 11/18/23 01/20/24 tamsulosin 0.4 mg capsule 0.8 mg PO DAILY 11/18/23 01/19/24 triamcinolone acetonide 0.5 % 1 applic topical Q8H PRN itching 11/18/23 01/19/24 topical cream umeclidinium 62.5 mcg/actuation 1 inh inhalation DAILY 11/18/23 01/19/24 blister powder for inhalation (Incruse Ellipta) torsemide 20 mg tablet 20 mg PO QAM 01/19/24 01/19/24 Allergies Allergy/AdvReac Type Severity Reaction Status Date / Time No Known Drug Allergies Allergy Verified 01/19/24 16:33 Review of Systems Status of ROS: Reports: 10 or more systems reviewed and unremarkable except as noted in History and below Narrative: I was able to review the discharge summary from [facility] Medical History (Updated 01/30/24 @ 01:09 by Peterson Bach MD) Elevated troponin ?R79.89 - Other specified abnormal findings of blood chemistry (ICD-10) AAA (abdominal aortic aneurysm) ?I71.40 - Abdominal aortic aneurysm, without rupture, unspecified (ICD-10) Aortic stenosis, severe ?I35.0 - Nonrheumatic aortic (valve) stenosis (ICD-10) Atrial fibrillation with RVR ?I48.91 - Unspecified atrial fibrillation (ICD-10) COPD (chronic obstructive pulmonary disease) ?J44.9 - Chronic obstructive pulmonary disease, unspecified (ICD-10) Morbid obesity ?E66.01 - Morbid (severe) obesity due to excess calories (ICD-10) BPH (benign prostatic hyperplasia) ?N40.0 - Benign prostatic hyperplasia without lower urinary tract symptoms (ICD-10) Type 2 DM with CKD stage 4 and hypertension ?E11.22 - Type 2 diabetes mellitus with diabetic chronic kidney disease (ICD-10) ?I12.9 - Hypertensive chronic kidney disease with stage 1 through stage 4 chronic kidney disease, or unspecified chronic kidney disease (ICD-10) ?N18.4 - Chronic kidney disease, stage 4 (severe) (ICD-10) Aortic stenosis ?I35.0 - Nonrheumatic aortic (valve) stenosis (ICD-10) 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 quit smoking >20 years ago What is your current living situation?: I presently have a place to live Problems where you live: no known problems Problems where you live details: N/A In the past 12 months, utilities in danger of being shut off: no In past 12 months, lack of transportation kept you from medical appts, meetings, work, or getting things needed for daily living: no In the past 12 mos, have been you worried that your food would run out before you had money to buy more?: never true In the past 12 mos, the food you bought just didn't last and you didn't have money to buy more?: never true Highest level of school completed/degree received: 12th grade, no diploma Smoking Status: Former smoker What tobacco products do you use: cigarettes Smoking quit date/years: >15 years ago How often do you have a drink containing alcohol: never How often do you have six or more drinks on one occasion: Never AUDIT-C Alcohol total score: 0 Non-prescribed substance use: denies use How often does anyone, including family, friends and others, physically hurt you: never How often does anyone, including family, friends and others, insult or talk down to you: never How often does anyone, including family, friends and others, threaten you with harm: never How often does anyone, including family, friends and others, scream or curse at you: never service: No Exam Narrative: Exam Narrative: I find him in room 5, no apparent distress nontoxic, unhappy, pupils equal round reactive to light he tracks normally, visual cisneros are grossly normal there is no facial droop I can see, tongue protrudes in the midline and his speech is normal cough his neck has good range of motion of flexion extension lateral flexion within the boundary of his thick neck. Carotid upstrokes are equal bilaterally, with no bruits. [employer] strength on the left is weaker than the right but when I squeeze his hand on the left he says it hurts, and pulls back it seems to be that his wrist hurts more than anything on his hand, but I do not see any obvious significant swelling or redness associated with this. His upper extremities are equal bilaterally in shoulder abduction, biceps triceps power seems normal bilaterally. Lower extremities have equal power bilaterally he has very large legs and he is morbidly obese. Chest is good air entry bilaterally with no wheezing crackles noted heart sounds no clicks murmurs or gallops he has got a red rash on his back, he tells me from the antibiotic he received [facility]. Abdomen is soft and obese there is no guarding no organomegaly noted. Const: Vital Signs, click to edit/add: Vital Signs - 24 hr 01/29/24 22:32 01/29/24 22:35 01/29/24 22:40 Temperature 98.2 F Pulse Rate 106 H Pulse Rate [Pulse Oximeter] 109 H Respiratory Rate 18 Blood Pressure Blood Pressure [Le ft Upper Arm] 165/102 H Pulse Oximetry 93 95 96 Oxygen Delivery Me od Room Air 01/29/24 22:45 01/29/24 22:50 01/29/24 23:00 Temperature Pulse Rate 105 H 107 H Pulse Rate [Pulse Oximeter] Respiratory Rate Blood Pressure Blood Pressure [Le ft Upper Arm] Pulse Oximetry 94 93 95 Oxygen Delivery Me thod 01/29/24 23:35 01/29/24 23:37 01/29/24 23:40 Temperature Pulse Rate 100 99 Pulse Rate [Pulse Oximeter] Respiratory Rate Blood Pressure 165/79 H Blood Pressure [Le ft Upper Arm] Pulse Oximetry 94 94 94 Oxygen Delivery Me thod 01/29/24 23:45 01/29/24 23:50 01/30/24 00:00 Temperature Pulse Rate 98 Pulse Rate [Pulse Oximeter] Respiratory Rate Blood Pressure Blood Pressure [Le ft Upper Arm] Pulse Oximetry 93 92 94 Oxygen Delivery Me thod 01/30/24 00:01 01/30/24 00:01 01/30/24 00:01 Temperature Pulse Rate Pulse Rate [Pulse Oximeter] Respiratory Rate Blood Pressure Blood Pressure [Le ft Upper Arm] Pulse Oximetry 93 93 93 Oxygen Delivery Me thod 01/30/24 00:10 01/30/24 00:15 01/30/24 00:20 Temperature Pulse Rate 98 Pulse Rate [Pulse Oximeter] Respiratory Rate Blood Pressure Blood Pressure [Le ft Upper Arm] Pulse Oximetry 93 94 95 Oxygen Delivery Me thod Course Reevaluation(s) Time of Reevaluation #1: 01:10 Reevaluation #1: The oxycodone really helped his discomfort, family did have some worries that this medicine can cause addiction as in the past he had been added tick did to a narcotic after his knee replacements. Given his other host of medical problems all however I do not think that we really have a lot of room here. In the Tylenol did not help. His 2nd troponin was negative his EKG was unchanged. It over really think that this is related to a stroke, and I do not think this is related to a myocardial infarction given the negative troponins and also EKG. A small supply 4 tablets of the oxycodone he can use is given through in stimulants, I do think he needs to follow up with primary care for ongoing issues, return here for chest pain shortness of breath or would weakness associated with this. Vital Signs Vital signs: Initial Vital Signs Temperature 98.2 F 01/29/24 22:32 Temperature Source Temporal Artery Scan 01/29/24 22:32 Pulse Rate 109 H 01/29/24 22:32 Respiratory Rate 18 01/29/24 22:32 Blood Pressure 165/102 H 01/29/24 22:32 Blood Pressure Mean 123 H 01/29/24 22:32 Blood Pressure Position Sitting 01/29/24 22:32 Pulse Oximetry 93 01/29/24 22:32 Oxygen Delivery Method Room Air 01/29/24 22:32 Vital Signs Temperature 98.2 F 01/29/24 22:32 Pulse Rate 109 H 01/29/24 22:32 Respiratory Rate 18 01/29/24 22:32 Blood Pressure 165/102 H 01/29/24 22:32 Pulse Oximetry 93 01/29/24 22:32 Oxygen Delivery Method Room Air 01/29/24 22:32 Temperature 98.2 F 01/29/24 22:32 Pulse Rate 98 01/30/24 00:15 Respiratory Rate 18 01/29/24 22:32 Blood Pressure 165/79 H 01/29/24 23:37 Pulse Oximetry 95 01/30/24 00:20 Oxygen Delivery Method Room Air 01/29/24 22:32 Medications Administered Medications: Discontinued Medications Generic Name Dose Route Start Last Admin Trade Name Glen PRN Reason Stop Dose Admin Oxycodone HCl 5 mg 01/30/24 00:05 01/30/24 00:23 Oxycodone 5 Mg Tablet PO 01/30/24 00:06 5 mg ONCE ONE Administration Medical Decision Making MDM Narrative Medical decision making narrative: Given the historical perspective by the patient this is a tough case to figure out. He is out of the window for any treatment with thrombolytics if I would think this is a stroke if still not convinced he is describing a stroke. Given the pain in his wrist when I examine him. Does have a heart history, and I think a reasonable thing here would be to do a couple troponins to rule out a cardiac cause, I will also do a CT of his head to ensure that there is nothing going on here. He does have an elevated creatinine I do not think he is a candidate for CTA based on this. X-ray will be done of his wrist, and some blood work, as gout is another possibility does not have a history of trauma. Medical Records Medical records reviewed: Yes I reviewed the patient's medical records Medical records narrative: Recent admission here and at [facility]. Lab Data Lab results reviewed: Yes I reviewed the patient's lab results Lab results narrative: Second potassium was normal. This tells me the 1st 1 was hemolyzed. White count is elevated, unsure why this is, but was elevated in the past. Labs: Lab Results 01/29/24 01/29/24 01/30/24 Range/Units 22:45 23:00 00:00 WBC 15.50 H (4.50-11.00) K/uL RBC 4.06 L (4.30-5.90) m/uL Hgb 12.2 L (13.5-17.5) gm/dL Hct 37.9 (37.0-53.0) % MCV 93 (80-100) fL MCH 30 (26-34) pg MCHC 32 (32-36) gm/dL RDW Coeff of Sissy 13.6 (11.5-15.5) % Plt Count 297 (140-440) K/uL Neut % (Auto) 71.7 (42.0-72.0) % Lymph % (Auto) 7.9 L (20-44) % [place] % (Auto) 4.6 (0.0-11.0) % Eos % (Auto) 7.8 H (0.0-7.0) % Baso % (Auto) 0.1 (0.0-3.0) % Neut # (Auto) 11.10 H (1.7-7.0) K/uL Lymph # (Auto) 1.20 (0.90-2.90) K/uL [place] # (Auto) 0.70 (0.00-0.90) K/UL Eos # (Auto) 1.20 H (0.00-0.50) K/uL Baso # (Auto) 0.00 (0.00-0.30) K/uL Abs Immat Gran (auto) 1.20 H (0.00-0.30) K/uL Imm/Tot Granulo (auto) 7.9 % Sodium 131 L (135-149) mmol/L Potassium 5.9 H 4.9 (3.6-5.1) mmol/L Chloride 98 (96-114) mmol/L Carbon Dioxide 22 (20-32) mmol/L Anion Gap 11 (7-15) mEq/L BUN 53 H (7-30) mg/dL Creatinine 2.2 H (0.5-1.5) mg/dL Estimated Creat Clear 20.19 Estimated GFR 28 ml/min Glucose 126 H (60-115) mg/dL Calcium 8.2 L (8.4-10.6) mg/dL C-Reactive Protein 6.3 H (0.5-1.0) mg/dL POC Troponin I 0.00 L (0.01-0.04) ng/ml Potassium is elevated, I did call the lab and they said there was likely some home all assess, I will have them redraw this. C-reactive protein is elevated. There is some soft tissue swelling notable with his wrist. On x-ray I wonder if this is maybe some gout, Imaging Data wrist: Attestation: I have reviewed the pertinent imaging results. My impression: Wrist x-ray shows mild soft tissue swelling. No fracture, head CT by my review shows no acute abnormality Radiologist's impression: ient: Walter Brooks V MR#: [id number] : 1935 Acct:[id number] Loc: ED Service Date: 01/29/[address]: Ordering Physician: Peterson Bach M.D. Date of Service: 01/29/24 Procedure(s): XR wrist LT min 3V Accession Number(s): [id number] cc: Alex Sinclair M.D.; Peterson Bach M.D.~ For Patients: As a result of the Cures Act, medical imaging exams and procedure reports are released immediately into your electronic medical record. You may view this report before your referring provider. If you have questions, please contact your health care provider. INDICATION: Pain, numbness. TECHNIQUE: Left wrist 3 view. COMPARISON: None. FINDINGS: No acute fracture or dislocation. Degenerative changes throughout the visualized hand and wrist greatest at the 1st CMC joint and triscaphe. Mild soft tissue swelling about the wrist. IMPRESSION: Degenerative changes and mild soft tissue swelling. No fracture identified. Dictated by Magda Domínguez MD @ 01/29/2024 11:31:48 PM (Electronically Signed) ECG Data Attestation: I personally reviewed and interpreted this ECG as follows: Prior ECG tracings: available for review Interpretation: EKG x2 shows normal sinus rhythm, with mild sinus tachycardia at 1:[address] wave changes. Discharge Plan Discharge Clinical Impression: Sprain and strain of wrist, HTN (hypertension), Aortic stenosis Patient Disposition: Home w/ Parent or Adult Condition: Stable Additional Instructions: Home rest return here if worsening shortness of breath chest pain otherwise follow-up with primary care, Activity Level: Light activity Prescriptions: No Action losartan 50 mg tablet 50 mg PO DAILY ipratropium-albuterol 0.5 mg-3 mg(2.5 mg base)/3 mL solution for nebulization 3 ml INHALATION QID PRN triamcinolone acetonide 0.5 % cream 1 applic topical Q8H PRN (Reason: itching) clopidogrel 75 mg tablet 75 mg PO DAILY chlorthalidone 25 mg tablet 12.5 mg PO DAILY pravastatin 80 mg tablet 80 mg PO HS tamsulosin 0.4 mg capsule 0.8 mg PO DAILY metoprolol succinate 25 mg tablet extended release 24 hr 25 mg PO DAILY albuterol sulfate 90 mcg/actuation HFA aerosol inhaler 1 - 2 puff INHALATION Q4H PRN (Reason: wheezing) Incruse Ellipta 62.5 mcg/actuation blister with device 1 inh INHALATION DAILY torsemide 20 mg tablet 20 mg PO QAM Follow Up/Referrals: Alex Sinclair MD [Primary Care Provider] - Stand Alone Forms: [facility] Info Instructions
[2024-01-29 23:13] LABS: Slide Review Reflex No
[2024-01-29 23:17] LABS: Chloride* 98 mmol/L (96-114)
[2024-01-29 23:18] LABS: Potassium* 5.9 mmol/L (3.6-5.1); Sodium* 131 mmol/L (135-149)
--- NOTE | 2024-01-29 23:19 | CRLHL7_ITS ---
For Patients: As a result of the Century Cures Act, medical imaging exams and procedure reports are released immediately into your electronic medical record. You may view this report before your referring provider. If you have questions, please contact your health care provider. INDICATION: Left arm altered sensation. COMPARISON: None. TECHNIQUE: CT of the head without IV contrast. Coronal and sagittal reconstructions. FINDINGS: Brain: No intracranial hemorrhage or evidence of acute infarct. No mass effect or midline shift. No abnormal extra-axial fluid collections. Moderate generalized cerebral and cerebellar volume loss with associated ex vacuo dilation of the lateral ventricles. Mild chronic small vessel ischemic disease. Skull base and calvarium: The visualized paranasal sinuses and mastoid air cells are clear. Chronic appearing deformity of the right medial and inferior orbital knox with partial atelectasis of the right maxillary sinus. Chronic appearing deformity of the right nasal bone. No acute fracture identified. The globes and extraocular muscles are symmetric. Soft tissues: Fatty atrophy of the right parotid gland. IMPRESSION: 1. No acute intracranial findings. 2. Generalized parenchymal volume loss and mild chronic small vessel ischemic disease. 3. Chronic appearing right facial bone deformities. Please note that all CT scans at this facility use dose modulation, iterative reconstruction, and/or weight-based dosing when appropriate to reduce radiation dose to as low as reasonably achievable. Dictated by Magda Domínguez MD @ 01/30/2024 12:03:01 AM (Electronically Signed)
[2024-01-29 23:20] LABS: Creatinine* 2.2 mg/dL (0.5-1.5); Est. Creatinine Clearance* 20.19; Estimated Glomerular Filt Rate 28 ml/min
[2024-01-29 23:21] LABS: Anion Gap 11 mEq/L (7-15); Blood Urea Nitrogen* 53 mg/dL (7-30); Calcium* 8.2 mg/dL (8.4-10.6); Carbon Dioxide* 22 mmol/L (20-32); Glucose* 126 mg/dL (60-115)
[2024-01-29 23:24] LABS: C Reactive Protein* 6.3 mg/dL (0.5-1.0)
[2024-01-30] VITALS (7 sets, daily range): BP systolic 154; BP diastolic 95; PULSE 91–98; RESP 18; TEMP 36.8; O2SAT 93–95
[2024-01-30] MEDS: OXYCODONE 5 MG TABLET PO (00:23)
[2024-01-30 00:26] LABS: Potassium* 4.9 mmol/L (3.6-5.1)
--- OUTSIDE RECORDS SUMMARY | 2024-01-30 00:41 | XMS_ITS | Clinical Summary ---
Author Organization [email or web address] [facility] & [facility] Address [place], [place] [address] Care Team Providers Care Band Lining Bander Name Role Phone Rodney Vergara MD Primary Care Provider [phone] Allergies Active Allergy Reactions Criticality Noted Date Comments Metformin Diarrhea Medium 02/02/2021 Medications Medication Sig Dispensed Refills Start Date End Date Status acetaminophen (TYLENOL EXTRA STRGTH) 500 mg tablet Take 1,000 mg by mouth 2 times daily. Max acetaminophen dose: 4000mg in 24 hrs. Takes @@ 0500 & 1300 Active blood-glucose meterIndications:Co ntrolled type 2 diabetes mellitus without complication, without long-term current use of insulin (HC) Dispense meter, test strips, lancets covered by pt ins. E11.9 NIDDM type II - Test 1 time/day 1 Device 07/28/19 19 Active NebulizerIndication s:COPD with chronic bronchitis (HC) Nebulizer with assessories. Frequency of use: 4x daily; Medication: duoneb Length of need: 99 months 1 Device 11/07/19 19 Active albuterol-ipratropi um (DUONEB) (2.5-0.5 mg) in 3 mL NEBULIZATION solutionIndications :COPD with chronic bronchitis (HC) INHALE THREE MLS BY MOUTH VIA NEBULIZER FOUR TIMES A DAY NEEDED 375 mL 5 02/23/20 23 Active pravastatin (PRAVACHOL) 80 mg tabletIndications:C ontrolled type 2 diabetes mellitus without complication, without long-term current use of insulin (HC) Take 1 Tablet (80 mg) by mouth at bedtime. 90 Tablet 3 05/27/19 24 Active blood sugar diagnostic (Blood Glucose Test) stripIndications:Co ntrolled type 2 diabetes mellitus without complication, without long-term current use of insulin (HC) Dispense brand covered by insurance. E11.9 NIDDM type II - Test 2 times/day 100 Each 3 09/23/19 24 Active umeclidinium (INCRUSE ELLIPTA) 62.5 mcg/actuation inhalerIndications: COPD with chronic bronchitis (HC) Inhale 1 Puff by mouth once daily. Discard inhaler 6 weeks after opening or when the counter reads '0' (after all blisters have been used), whichever comes first.Wait until they call for this. 30 Each 09/23/19 24 Active albuterol HFA (PRO-AIR; VENTOLIN; PROVENTIL) 90 mcg/actuation inhalerIndications: COPD with chronic bronchitis (HC) Inhale 1-2 Puffs by mouth every 4 hours if needed for Shortness of Breath 2nd choice or Wheezing 1st choice. 1 Each 09/23/19 24 Active tamsulosin (FLOMAX) 0.4 mg capsuleIndications: Urinary retention Take 2 Capsules (0.8 mg) by mouth once daily after a meal. 180 Capsule 3 09/23/19 24 Active torsemide (DEMADEX) 10 mg tabletIndications:C hronic diastolic CHF (congestive heart failure) (HC) Take 1 tablet daily in the morning. 30 Tablet 01/26/20 24 Active metoprolol succinate (TOPROL XL) 50 mg sustained-release tabletIndications:C hronic diastolic CHF (congestive heart failure) (HC),Paroxysmal atrial fibrillation (HC) Take 1 Tablet (50 mg) by mouth once daily. 30 Tablet 01/27/20 24 Active apixaban (ELIQUIS) 2.5 mg tabletIndications:p revent thromboembolism in chronic atrial fibrillation Take 1 Tablet (2.5 mg) by mouth two times daily. 60 Tablet 01/26/20 24 Active triamcinolone 0.5 % creamIndications:Ra sh Apply topically to affected area(s) two times daily. Use for up to 2 weeks for drug reaction rash. Do not apply to the face. 30 g 2 01/26/20 24 Active aspirin (ECOTRIN) 81 mg enteric coated tabletIndications:C ontrolled type 2 diabetes mellitus without complication, without long-term current use of insulin (HC),Aneurysm of right leg (HC) Take 1 Tablet (81 mg) by mouth once daily. 0 03/16/20 22 Discontinued(*I P Discontinued) metoprolol succinate (TOPROL XL) 25 mg Sustained-Release tabletIndications:E ssential hypertension,Hypert ensive heart disease with heart failure (HC) Take 1 Tablet (25 mg) by mouth once daily. 90 Tablet 3 05/27/19 24 Discontinued(*I P Discontinued) losartan (COZAAR) 50 mg tabletIndications:E ssential hypertension,Hypert ensive heart disease with heart failure (HC) Take 1 Tablet (50 mg) by mouth once daily. 90 Tablet 3 05/27/19 24 Discontinued(*I P Discontinued) triamcinolone 0.5 % creamIndications:Ra sh Apply topically to affected area(s) two times daily. Use for up to 2 weeks and take a week off. 30 g 2 09/23/19 24 Discontinued clopidogreL (PLAVIX) 75 mg tabletIndications:A neurysm of right leg (HC) Take 1 Tablet (75 mg) by mouth once daily. 90 Tablet 3 09/23/19 24 Discontinued(*I P Discontinued) torsemide (DEMADEX) 20 mg tabletIndications:C hronic diastolic CHF (congestive heart failure) (HC) Take 1 tablet daily in the morning. 30 Tablet 11/29/19 24 Discontinued Active Problems Problem Noted Date Diagnosed Date NEGRO (acute kidney injury) 01/23/2024 Stage 4 chronic kidney disease 01/23/2024 Metabolic acidosis 01/23/2024 Hyponatremia 01/23/2024 Atrial fibrillation with RVR 01/22/2024 Overview (01/22/2024): Echo shows EF of 59 % and severe , rate control and anticoagulate with apixaban. Requiring both metoprolol and diltiazem for rate control CAP (community acquired pneumonia) 01/22/2024 Overview (01/22/2024): -soft call but ground glass opacity in the RLL could be infectious; will treat -elevated procal and CRP (pt reports chills) -legionella and strep pneumo pending -minimal oxygen need -no steroids currently -continue nebs and then home COPD meds - 01/19 Tm 99.6 yesterday evening. Procal, CRP elevated. Mildly tachycardic. EKG yesterday shows sinus rhythm, HR 98. Mildly tachypneic 24, not hypoxic, not dyspneic. Continue nebs, ceftriaxone, azithromycin. Bacteremia 01/22/2024 Overview (01/22/2024): GPC in single BC 23.5 hours. Started renal dose vancomycin. Culture grew Staph epidermidis. No obvious source for bacteremia. Serial cultures negative at 48 hours. 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 08/30/2016 Controlled type 2 diabetes m ellitus without complication, without long-term current use of insulin 10/16/2014 History of bilateral knee replacement 10/16/2014 Overview (02/08/2018): L - 10/26/13 R - 06/21/17 DJD (degenerative joint disease) of knee 014 PVC's (premature ventricular contractions) 09/09 Incisional hernia 09/03/2011 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 11/27/2008 Personal history of tobacco use, presenting hazards to health 10/18/2008 Hypertrophy of prostate with urinary obstruction and other lower urinary tract symptoms (LUTS) 10/18/2008 Unspecified essential hypertension 08/08/2006 Cardiac dysrhythmia, unspecified 08/08/2006 Morbid obesity with body mas s index (BMI) of 40.0 to 44.9 in adult Hyperlipidemia LDL goal < 70 Resolved Problems Problem Noted Date Diagnosed Date Resolved Date AAA (abdominal aortic aneury sm without rupture) 10/23/2008 11/27/2008 AAA (abdominal aortic aneurysm) 10/23/2008 12/03/2009 Encounters Date Type Department Care Team Description 01/29/2024 Nurse Triage [facility] [address] [place] [address] Rodney Vergara MD Arm Numbness 01/27/2024 Patient Outreach [facility] [address] [place] [address] Nayeli Han RN Primary RN Care Management; Hospital F/U (Lace [facility]) 01/22/2024 5:01 PM CDT - 01/26/2024 12:20 PM CDT Hospital Encounter [facility] [address] [place] [address] [facility], [facility] Of Jared Gusman MD Fredrickson, Bradley Thomas, MD Acute diastolic CHF (congestive heart failure) (HC) (Primary Dx); Chronic diastolic CHF (congestive heart failure) (HC); Paroxysmal atrial fibrillation (HC); Rash; Stage 4 chronic kidney disease (HC); Atrial fibrillation with RVR (HC) Discharge Disposition: Home Health 01/22/2024 Orders Only [facility] Scanner 1 scan: (1-Ord) [place], CHEST 1V PORTABLE, 01/22/2024 01/22/2024 Travel 01/22/2024 Telephone [facility] - Ernestina Delgado [address] [place] [address] [place] [address] Kvng Howell MD 01/20/2024 10:00 AM CDT Ancillary Procedure [facility] [address] [place] [address] 01/20/2024 Travel 01/19/2024 Orders Only [facility] Scanner 1 scan: (1-Ord) [facility], CHEST ABDOMEN PELV WITHOUT CONTRAST, 01/19/2024 12/20/2023 8:15 AM CDT Ancillary Procedure [facility] [address] [facility] [address] 12/20/2023 Telephone [facility] [address] [facility] [address] Rodney Vergara MD Medication Management 12/20/2023 Travel 12/16/2023 Transcribe Orders [facility] [address] [place] [address] Dinesh Fermin MD 12/07/2023 2:00 PM CDT Office Visit [facility] [address] [facility] [address] Rodney Vergara MD Results 12/07/2023 Travel 12/07/2023 Patient Outreach [facility] - [facility] Team [address] [place] [address] Nelli Draper RN Chronic Kidney Disease (Disease Management Engagement Outreach) 12/05/2023 2:00 PM CDT Orders Only [facility] [place] [address] [address] Lab, [place] [facility] 12/05/2023 Travel 12/02/2023 12:40 PM CDT Office Visit [facility] [place] [facility] [address] Rodney Vergara MD Follow Up (CHF) 12/02/2023 Telephone [facility] [address] [facility] [address] Rodney Vergara MD Lab 12/02/2023 Travel 12/02/2023 Telephone [facility] [address] [facility] [address] Rodney Vergara MD 11/29/2023 1:30 PM CDT Office Visit [facility] [place] [address] [address] Rodney Vergara MD ER Follow up ([facility] - 11/18/2023/Shortness of breath/CHF) 11/29/2023 Travel 11/22/2023 Telephone [facility] [address] [place] [address] Rodney Vergara MD Abnormal Lab Results 11/21/2023 10:45 AM CDT Orders Only [facility] [address] [facility] [address] Lab, [place] [facility] 11/21/2023 Travel 11/18/2023 Orders Only [facility] Scanner 1 scan: (1-Ord) [facility], XR CHEST 2V, 11/18/2023 11/18/2023 Telephone [facility] [address] [place] [address] [address] Rodney Vergara MD Appointment Request (LABS) 11/18/2023 Nurse Triage [facility] [address] [place] [address] [address] Rodney Vergara MD Error-please disregard 11/18/2023 Nurse Triage [facility] [address] [facility] [address] Rodney Vergara MD from Last 3 Months Immunizations Name Administration Dates Next Due COVID-19 vaccine (Pfizer-Bio NTech 30mcg/0.3mL) 12YO+ BIVALENT PF, MDV 02/03/2022 COVID-19 vaccine (Pfizer-Bio NTech 30mcg/0.3mL) 12YO+ JESICA-SUCROSE PF, MDV 08/06/2021 COVID-19 vaccine (Pfizer-Bio NTech 30mcg/0.3mL) PF, MDV 01/01/2021,05/23/2020,05/02/2020 Influenza, High-dose Inactivated 05/19/2016 Influenza, High-dose Quadriv alent Inactivated 01/01/2021 Influenza, IIV3 (Age >=3 years) 04/03/19 14,04/19/2012,01/26/2011,2009,12/13/2008,02/20/2008,01/19/2007,1 ,02/02/2005 Influenza, Inactivated AIIV4 (Age 65+ Years) Preserv Free 01/24/2023,02/03/2022,01/09/2020 Influenza, Inactivated IIV3 (Age 65+ Years) Preserv Free 03/12/2019,02/08/2018,01/28/2017 Pneumococcal Poly,23-Valent (Pneumovax) 10/18/2008 Pneumococcal conj 13-Valent (Prevnar 13) 02/08/2018 Td (Age >=7 Years) 09/12/2002 Tdap 04/19/2012 Zoster (Zostavax-ZVL, live) 10/18/2008 Family History Medical History Relation Name Comments Heart Disease Father Good Health Mother at 90 afte r hip fracture Cancer-breast Sister 2 Yue Relation Name Status Comments Brother 1 Emil Alive Brother 2 Robby Alive Father (Age 76) brain aneu rysm Mother (Age 87) Sister 1 Elma Echevarria Alive Sister 2 Yue Alive Son 1 (Age 11 mos) underd eveloped liver Son 2 Alive Son 3 Alive Son 4 Alive Social History Tobacco Use Types Packs/Day Years Used Date Smoking Tobacco: Former Cigarettes 2 48 0 [birth year]28/1953 - 03/28/2001 Passive Smoke Exposure: Past Smokeless Tobacco: Never Tobacco Cessation:Counseling Given: Yes Alcohol Use Standard Drinks/Week Comments Not Currently 0 (1 standard drink = 0.6 oz pur e alcohol) PHQ-2 Answer Date Recorded PHQ-2 TOTAL SCORE 0 09/23/2023 Social Connections Answer Date Recorded Do you often feel lonely or isolated from those around you? 0 01/22/2024 Alcohol Use Answer Date Recorded How often do you have a drink containing alcohol ? 2 11/29/2023 How many drinks containing a lcohol do you have on a typical day when you are drinking? 0 11/29/2023 How often do you have five or more drinks on one occasion? 0 11/29/2023 Financial Resource Strain Answer Date R ecorded Difficulty of Paying Living Expenses 3 01/22/2024 Difficulty of Paying Living Expenses Not on file 01/22/2024 Food Insecurity Answer Date Recorded Do you worry your food will run out before you are able to buy more? 1 01/22/2024 Transportation Needs Answer Date Record ed Does lack of transportation keep you from medica l appointments? 1 01/22/2024 Does lack of transportation keep you from work, meetings or getting things that you need? 1 01/22/2024 Housing Stability Answer Date Recorded What is your housing situation today? 1 01/22/2024 Sex and Gender Information Value Date Recorded Sex Assigned at Not on file Gender Identity Not on file Sexual Orientation Not on file Obstetrics History Last Filed Vital Signs Vital Sign Reading Time Taken Comments Blood Pressure 119/76 01/26/2024 8:15 AM CDT Pulse 84 01/26/2024 8:15 AM CDT Temperature 36.7 ??C (98.1 ??F) 01/26/2024 8:15 AM CD T Respiratory Rate 20 01/26/2024 8:15 AM CDT Oxygen Saturation 91% 01/26/2024 8:15 AM CDT Inhaled Oxygen Concentration - - Weight 100 kg (220 lb 7.4 oz) 01/26/2024 4:28 AM CDT Height 161.3 cm (5' 3.5) 12/02/2023 12:37 PM CD T Body Mass Index 38.44 12/02/2023 12:37 PM CDT Plan of Treatment Upcoming Encounters Date Type Department Care Team (Late st Contact Info) Description 01/31/2024 1:00 PM EMPLOYEE RELATIONS ASSISTANT Office Visit [facility] [address] [place] [address] Shaila Oleary MD [address] [place] [address] 02/28/2024 10:40 AM EMPLOYEE RELATIONS ASSISTANT Orders Only [facility] [address] [facility] [address] [place] [address] 02/28/2024 11:20 AM EMPLOYEE RELATIONS ASSISTANT Office Visit [facility] [address] [place] [address] [place] [address] [facility] [address] [place] [address] 03/14/2024 7:30 AM EMPLOYEE RELATIONS ASSISTANT Orders Only [facility] [address] [place] [address] Kwaku Mckeon 03/20/2024 7:30 AM EMPLOYEE RELATIONS ASSISTANT Office Visit [facility] [address] [place] [address] Rodney Vergara MD [address] [place] [address] Health Maintenance Due Date Last Done Comments Zoster (shingles) series for age 50+ (2 of 3) 12/13/2008 10/18/2008 RSV vaccine for adults or (1 - 1-dose 75+ series) 01/11/2011 Tetanus booster 04/19/2022 04/19/2012, 03/29, 09/12/2002 COVID-19 vaccine series ( season) 2023 02/03/2022, 08/06/2021, 08/06/2021, Additional history exists Influenza for age 65+ 11/27/2023 01/24/2023 , 02/03/2022, 01/01/2021, Additional history exists Depression screening for age 12+ 09/22/2024 09/23/2023, 09/21/2022, 08/06/2021, Additional history exists Medicare Wellness for age 65+ 09/23/2024, 09/21/2022, 08/05/2021, Additional history exists BMI (ht and wt on same day) for age 18+ 12/01/2024 12/02/2023, 09/23/2023, 12/30/2022, Additional history exists Tdap Completed 04/19/2012 Pneumococcal series for age 65+ Completed 8, 10/18/2008 Goals Goal Patient Goal Type Associated Problems Recent Progress Patient-Stated? Author BLOOD PRESSURE - MAINTAINS BP less than 140/90 Blood Pressure No Alex Sinclair MD Medical Devices Implanted Type Area Correctional Therapy Director Device Identifier Shelf Expiration Date Model / Serial / Lot Graft Knitted [id number] Stra Hemashield [id number] [employer] - [id number] Implanted:Qty: 1 on 12/30/2008 at [facility] N/A: [employer] [id number]# / [id number] / [place] [id number] - [id number] Implanted:Qty: 1 on 12/30/2008 at [facility] Inari [id number]# / / Cmnt Bone 40g Simplex P Atb Mvtobramycin - [id number] Implanted:Qty: 1 on 06/21/2017 by Joe Savage MD at [facility] Right: Knee [employer] 11/25/2018 [id number] # / / [id number] Cmnt Bone 40g Simplex P Atb Mvtobramycin - [id number] Implanted:Qty: 1 on 06/21/2017 by Joe Savage MD at [facility] Right: Knee [employer] 11/25/2018 [id number] # / / [id number] Fem Rt Sz6 Journey Ii Bcs Oxin - [id number] Implanted:Qty: 1 on 06/21/2017 by Joe Savage MD at [facility] Right: Knee [employer] 02/12/2027 [id number]# / / [id number] Baseplate Tib Rt Sz5 Airport Tower Controller Journey - [id number] Implanted:Qty: 1 on 06/21/2017 by Joe Savage MD at [facility] Right: Knee [employer] 12/04/2026 [id number]# / / [id number] Patella Sz35 Journey Rnd Non Pors - [id number] Implanted:Qty: 1 on 06/21/2017 by Joe Savage MD at [facility] Right: Knee [employer] 02/12/2027 [id number]# / / [id number] Insert Knee Rt Sz5-6 9mm Journey Ii Bcs Bi Cruc Stbz - [id number] Implanted:Qty: 1 on 06/21/2017 by Joe Savage MD at [facility] Right: Knee [employer] 12/27/2026 [id number]# / / [id number] Procedures Procedure Name Priority Date/Time Associated Diagnosis Comments CBC WITH AUTO DIFFERENTIAL Early AM 01/26/2024 8:11 AM CDT HEPATIC FUNCTION PANEL Early AM 8:11 AM CDT CBC WITH AUTO DIFFERENTIAL Early AM 01/26/2024 8:11 AM CDT BASIC METABOLIC PANEL Early AM 01/26/2024 8:11 AM CDT GLUCOSE METER Timed 01/26/2024 7:52 AM CDT SCAN-CARDIAC STRIP 01/25/2024 11 :37 PM CDT GLUCOSE METER Timed 01/25/2024 9:40 PM CDT GLUCOSE METER Timed 01/25/2024 5:09 PM CDT GLUCOSE METER Timed 01/25/2024 11:53 AM CDT SCAN-CARDIAC STRIP 01/25/2024 10 :59 AM CDT GLUCOSE METER Timed 01/25/2024 7:18 AM CDT DIFFERENTIAL JOSÉ MANUEL 01/25/2024 6:22 AM CDT WHITE BLOOD COUNT Early AM 01/25/2024 6:2 2 AM CDT CREATININE Early AM 01/25/2024 6:22 AM CDT ELECTROLYTE PANEL Early AM 01/25/2024 6:2 2 AM CDT GLUCOSE METER Timed 01/24/2024 10:03 PM CDT SCAN-CARDIAC STRIP 01/24/2024 9: 42 PM CDT GLUCOSE METER Timed 01/24/2024 5:24 PM CDT SCAN-CARDIAC STRIP 01/24/2024 4: 32 PM CDT URINALYSIS MICROSCOPIC Timed 2:25 PM CDT PROTEIN/CREAT RATIO,URINE Today 01/24/2024 2:25 PM CDT UA W/ SEDIMENT EXAM REFLEXED PER CRITERIA Today 01/24/2024 2:25 PM CDT GLUCOSE METER Timed 01/24/2024 12:59 PM CDT SCAN CORRESP-EKG RESULTS 01/24/2024 12:33 PM CDT SCAN CORRESP-LABORATORY RESULTS 01/24/2024 12:33 PM CDT SCAN CORRESP-IMAGING 01/24/2024 12:33 PM CDT SCAN-CARDIAC STRIP 01/24/2024 7: 49 AM CDT GLUCOSE METER Timed 01/24/2024 7:47 AM CDT BASIC METABOLIC PANEL Early AM 01/24/2024 6:50 AM CDT WHITE BLOOD COUNT Early AM 01/24/2024 6:5 0 AM CDT GLUCOSE METER Timed 01/23/2024 9:48 PM CDT SCAN-CARDIAC STRIP 01/23/2024 7: 28 PM CDT GLUCOSE METER Timed 01/23/2024 5:38 PM CDT STOOL PATHOGEN MULTIPLEX PCR PANEL Today 01/23/2024 2:22 PM CDT VANCOMYCIN TROUGH Timed 01/23/2024 12: 29 PM CDT SCAN-CARDIAC STRIP 01/23/2024 8: 46 AM CDT GLUCOSE METER Timed 01/23/2024 8:44 AM CDT EKG 12 LEAD Routine 01/23/2024 7:20 AM CDT C-REACTIVE PROTEIN Early AM 01/23/2024 6: 49 AM CDT PRO-BNP Early AM 01/23/2024 6:49 AM CDT CBC W PLT NO DIFF Early AM 01/23/2024 6:4 9 AM CDT BASIC METABOLIC PANEL Early AM 01/23/2024 6:49 AM CDT SCAN-CARDIAC STRIP 01/23/2024 3: 11 AM CDT VANCOMYCIN STAT 01/22/2024 10:15 PM CDT GLUCOSE METER Timed 01/22/2024 8:46 PM CDT SCAN-CARDIAC STRIP 01/22/2024 5: 51 PM CDT SCAN-RADIOLOGY REPORT 01/22/2024 12:00 AM CDT ECHO TTE COMPLETE WO CONTRAST Routine 01/20/2024 12:52 PM CDT (HFpEF) heart failure with preserved ejection fraction (HC) Aortic stenosis SCAN-CT INTERPRETATION 12:00 AM CDT US RENAL AND BLADDER COMPLETE Routine 12/20/2023 8:47 AM CDT Chronic kidney disease, stage IV (severe) (HC) Benign prostatic hyperplasia with lower urinary tract symptoms BASIC METABOLIC PANEL Routine 12/05/2023 1:52 PM CDT CKD (chronic kidney disease) stage 4, GFR 15-29 ml/min (HC) CREATININE,ISTAT Routine 12/02/2023 11:5 7 AM CDT Stage 3 chronic kidney disease, unspecified whether stage 3a or 3b CKD (HC) HEMOGLOBIN A1C MONITORING (POCT) Routine 12/02/2023 11:54 AM CDT Controlled type 2 diabetes mellitus without complication, without long-term current use of insulin (HC) LIPID PANEL W REFLEX MEASURED LDL Routine 12/02/2023 11:54 AM CDT Controlled type 2 diabetes mellitus without complication, without long-term current use of insulin (HC) BASIC METABOLIC PANEL Routine 11/29/2023 2:35 PM CDT Chronic diastolic CHF (congestive heart failure) (HC) BASIC METABOLIC PANEL Routine 11/21/2023 10:16 AM CDT Chronic diastolic CHF (congestive heart failure) (HC) SCAN-RADIOLOGY REPORT 11/18/2023 12:00 AM CDT from Last 3 Months Results * (ABNORMAL) CBC WITH AUTO DIFFERENTIAL (01/26/2024 8:11 AM CDT) [facility] WHITE BLOOD COUNT 15.7(H) 4.5 - 11.0 thou/cu mm 01/26/2024 8:46 AM CDT [facility] RED BLOOD COUNT 3.61(L) 4.30 - 5.90 mil/cu mm 01/26/2024 8:46 AM CDT [facility] HEMOGLOBIN 10.7(L) 13.5 - 17.5 g/dL 01/26/2024 8:46 AM CDT [facility] HEMATOCRIT 32.2(L) 37.0 - 53.0 % 01/26/2024 8:46 AM CDT [facility] MCV 89 80 - 100 fL 01/26/2024 8:46 AM CDT [facility] MCH 29.6 26.0 - 34.0 pg 01/26/2024 8:46 AM CDT [facility] MCHC 33.2 32.0 - 36.0 g/dL 01/26/2024 8:46 AM CDT [facility] RDW 13.5 11.5 - 15.5 % 01/26/2024 8:46 AM CDT [facility] PLATELET COUNT 266 140 - 440 thou/cu mm 01/26/2024 8:46 AM CDT [facility] MPV 10.2 6.5 - 11.0 fL 01/26/2024 8:46 AM CDT [facility] NRBC 0.0 % 01/26/2024 8:46 AM CDT [facility] ABS NRBC 0.0 thou /cu mm 01/26/2024 8:46 AM CDT [facility] % NEUT 81.1 % 01/26/2024 8:46 AM CDT [facility] % LYMPH 3.8 % 01/26/2024 8:46 AM CDT [facility] % MONO 4.5 % 01/26/2024 8:46 AM CDT [facility] % EOS 9.2 % 01/26/2024 8:46 AM CDT [facility] % BASO 0.2 % 01/26/2024 8:46 AM [facility] % IMMATURE GRAN (METAS,MYELOS,IA OS) 1.2 % 01/26/2024 8:46 AM [facility] ABSOLUTE NEUTROPHILS 12.8(H) 1.7 - 7.0 thou/cu mm 01/26/2024 8:46 AM T [facility] ABSOLUTE LYMPHOCYTES 0.6(L) 0.9 - 2.9 thou/cu mm 01/26/2024 8:46 AM T [facility] ABSOLUTE MONOCYTES 0.7 <0.9 thou/cu mm 01/26/2024 8:46 AM [facility] ABSOLUTE EOSINOPHILS 1.5(H) <0.5 thou/cu mm 01/26/2024 8:46 AM T [facility] ABSOLUTE BASOPHILS 0.0 <0.3 thou/cu mm 01/26/2024 8:46 AM [facility] ABSOLUTE IMMATURE GRANULOCYTES(MET ,MYELOS,PROS) 0.2 <0.3 thou/cu mm 01/26/2024 8:46 AM [facility] Blood BLOOD SPECIMEN / Unknown Butterfly / Unknown 01/26/2024 8:11 AM CDT 01/26/2024 8:26 AM CDT Samuel Ashford MD HEMATOLOGY Performing Organization Address City/[facility]/ZIP Co de Phone Number [facility] [address] [address], [place] * (ABNORMAL) Hepatic function panel AM (01/26/2024 8:11 AM CDT) ALBUMIN 3.2(L) 4.0 - 4.9 g/dL 01/26/2024 8:57 AM CDT [facility] PROTEIN,TOTAL 6.1 6.0 - 8.0 g/dL 01/26/2024 8:57 AM CDT [facility] BILIRUBIN,TOTAL 0.6 0.0 - 1.2 mg/dL 01/26/2024 8:57 AM CDT [facility] BILIRUBIN,DIRECT 0.3(H) 0.0 - 0.2 mg/dL 01/26/2024 8:57 AM CDT [facility] BILIRUBIN,INDIRE CT 0.3 0.2 - 0.8 mg/dL 01/26/2024 8:57 AM CDT [facility] ALK PHOSPHATASE 83 40 - 129 IU/L 01/26/2024 8:57 AM CDT [facility] ALT (SGPT) 64(H) 10 - 50 IU/L 01/26/2024 8:57 AM CDT [facility] AST (SGOT) 48 10 - 50 IU/L 01/26/2024 8:57 AM CDT [facility] Blood BLOOD SPECIMEN / Unknown Butterfly / Unknown 01/26/2024 8:11 AM CDT 01/26/2024 8:26 AM CDT Samuel Ashford MD CHEMISTRY Performing Organization Address City/[facility]/ZIP Co de Phone Number [facility] [address] [address], [place] * (ABNORMAL) Basic metabolic panel AM (01/26/2024 8:11 AM CDT) Only the most recent of6 resultswithin the time period is included. SODIUM 132(L) 136 - 145 mmol/L 01/26/2024 8:57 AM T [facility] POTASSIUM 4.2 3.5 - 5.1 mmol/L 01/26/2024 8:57 AM T [facility] CHLORIDE 95(L) 98 - 107 mmol/L 01/26/2024 8:57 AM T [facility] CO2,TOTAL 22 22 - 29 mmol/L 01/26/2024 8:57 AM T [facility] ANION GAP 15 5 - 18 01/26/2024 8:57 AM T [facility] GLUCOSE 157(H) 70 - 99 mg/dL 01/26/2024 8:57 AM T [facility] CALCIUM 8.0(L) 8.8 - 10.2 mg/dL 01/26/2024 8:57 AM T [facility] BUN 68(H) 8 - 23 mg/dL 01/26/2024 8:57 AM T [facility] CREATININE 2.92(H) 0.70 - 1.20 mg/dL 01/26/2024 8:57 AM T [facility] BUN/CREAT RATIO 23(H) 10 - 20 8:57 AM T [facility] eGFR 20(L) >90 mL/min/1.7 3m2 01/26/2024 8:57 AM T [facility] Comment:As of 2021, eG FR is calculated by the CKD-EPI creatinine equation without race adjustment. ??eGFR can be influenced by muscle mass, exercise, and diet. ??The reported eGFR is an estimation only and is only applicable if the renal function is stable. Blood BLOOD SPECIMEN / Unknown Butterfly / Unknown 01/26/2024 8:11 AM CDT 01/26/2024 8:26 AM CDT Samuel Ashford MD CHEMISTRY Performing Organization Address City/[facility]/ZIP Co de Phone Number [facility] [address] [address], * (ABNORMAL) GLUCOSE METER (01/26/2024 7:52 AM CDT) Only the most recent of13 resultswithin the time period is included. GLUCOSE METER 158(H) 65 - 100 mg/dL 01/26/2024 8:01 AM CDT [facility] Blood BLOOD SPECIMEN / Unknown 01/26/2024 7:52 AM CDT 01/26/2024 8:01 AM CDT Samuel Ashford MD CHEMISTRY Performing Organization Address [facility] Co de Phone Number [facility] [address] [place] [id number], [place] * SCAN-CARDIAC STRIP (01/25/2024 11:37 PM CDT) Scanner OTHER * SCAN-CARDIAC STRIP (01/25/2024 10:59 AM CDT) Scanner OTHER * (ABNORMAL) WBC AM (01/25/2024 6:22 AM CDT) Only the most recent of2 resultswithin the time period is included. WHITE BLOOD COUNT 13.5(H) 4.5 - 11.0 thou/cu mm 01/25/2024 6:46 AM CDT [facility] NRBC 0.0 % 01/25/2024 6:46 AM CDT [facility] ABS NRBC 0.0 thou /cu mm 01/25/2024 6:46 AM CDT [facility] Blood BLOOD SPECIMEN / Unknown Venipuncture / Unknown 01/25/2024 6:22 AM CDT 01/25/2024 6:36 AM CDT Samuel Ashford MD HEMATOLOGY Performing Organization Address [facility] Co de Phone Number [facility] [address] [address], * (ABNORMAL) Creatinine AM (01/25/2024 6:22 AM CDT) eGFR 18(L) >90 mL/min/1.7 3m2 01/25/2024 7:08 AM CDT [facility] Comment:As of 2021, eG FR is calculated by the CKD-EPI creatinine equation without race adjustment. ??eGFR can be influenced by muscle mass, exercise, and diet. ??The reported eGFR is an estimation only and is only applicable if the renal function is stable. CREATININE 3.12(H) 0.70 - 1.20 mg/dL 01/25/2024 7:08 AM CDT [facility] Blood BLOOD SPECIMEN / Unknown Venipuncture / Unknown 01/25/2024 6:22 AM CDT 01/25/2024 6:36 AM CDT Samuel Ashford MD CHEMISTRY Performing Organization Address [facility] de Phone Number [facility] [address] [address], * (ABNORMAL) DIFFERENTIAL (01/25/2024 6:22 AM CDT) % NEUT 81.3 % 01/25/2024 12:50 PM CDT [facility] % LYMPH 3.9 % 01/25/2024 12:50 PM CDT [facility] % MONO 4.8 % 01/25/2024 12:50 PM CDT [facility] % EOS 9.2 % 01/25/2024 12:50 PM CDT [facility] % BASO 0.2 % 01/25/2024 12:50 PM CDT [facility] % IMMATURE GRAN (METAS,MYELOS,IA OS) 0.6 % 01/25/2024 12:50 PM CDT [facility] ABSOLUTE NEUTROPHILS 11.4(H) 1.7 - 7.0 thou/cu mm 01/25/2024 12:50 PM CDT [facility] ABSOLUTE LYMPHOCYTES 0.5(L) 0.9 - 2.9 thou/cu mm 01/25/2024 12:50 PM CDT [facility] ABSOLUTE MONOCYTES 0.7 <0.9 thou/cu mm 01/25/2024 12:50 PM CDT [facility] ABSOLUTE EOSINOPHILS 1.3(H) <0.5 thou/cu mm 01/25/2024 12:50 PM CDT [facility] ABSOLUTE BASOPHILS 0.0 <0.3 thou/cu mm 01/25/2024 12:50 PM CDT [facility] ABSOLUTE IMMATURE GRANULOCYTES(MET ,MYELOS,PROS) 0.1 <0.3 thou/cu mm 01/25/2024 12:50 PM CDT [facility] Blood BLOOD SPECIMEN / Unknown Venipuncture / Unknown 01/25/2024 6:22 AM CDT 01/25/2024 6:36 AM CDT Narrative [facility] - 01/25/2024 12:50 PM CDT WBC MUST ALSO BE ORDERED, [id number] Samuel Ashford MD HEMATOLOGY [facility] [address] [place] [address], * (ABNORMAL) Electrolyte panel AM (01/25/2024 6:22 AM CDT) SODIUM 130(L) 136 - 145 mmol/L 01/25/2024 7:08 AM CDT [facility] POTASSIUM 4.4 3.5 - 5.1 mmol/L 01/25/2024 7:08 AM CDT [facility] CHLORIDE 95(L) 98 - 107 mmol/L 01/25/2024 7:08 AM CDT [facility] CO2,TOTAL 21(L) 22 - 29 mmol/L 01/25/2024 7:08 AM CDT [facility] ANION GAP 14 5 - 18 01/25/2024 7:08 AM CDT [facility] Blood BLOOD SPECIMEN / Unknown Venipuncture / Unknown 01/25/2024 6:22 AM CDT 01/25/2024 6:36 AM CDT Samuel Ashford MD CHEMISTRY [facility] [address] [place] [phone], * SCAN-CARDIAC STRIP (01/24/2024 9:42 PM CDT) Scanner OTHER * SCAN-CARDIAC STRIP (01/24/2024 4:32 PM CDT) Scanner OTHER * (ABNORMAL) URINALYSIS MICROSCOPIC (01/24/2024 2:25 PM CDT) RBC 3-5(A) 0-2, None Seen /HPF 01/24/2024 3:05 PM CDT [facility] WBC 0-2 0-2, 3-5, None Seen /HPF 01/24/2024 3:05 PM CDT [facility] BACTERIA None Seen None Seen, Rare, Few Bacteria/ HPF 01/24/2024 3:05 PM CDT [facility] EPITHELIAL CELLS None Seen None Seen, Few Epi/HPF 01/24/2024 3:05 PM CDT [facility] HYALINE CASTS 3-5 0-2, 3-5 /LPF 01/24/2024 3:05 PM CDT [facility] Urine URINE SPECIMEN / Unknown Non-Blood / Unknown 01/24/2024 2:25 PM CDT 01/24/2024 2:47 PM CDT Arnulfo Dunn MD URINE Performing Organization Address [facility] de Phone Number [facility] [address] [place] [phone], [place] * (ABNORMAL) PROTEIN/CREAT RATIO,URINE (01/24/2024 2:25 PM CDT) PROTEIN QUANT,RAND URINE 29(H) 1 - 14 mg/dL 01/24/2024 3:21 PM CDT [facility] CREAT,RANDOM URINE 123.0 39.0 - 259.0 mg/dL 01/24/2024 3:21 PM CDT [facility] PROT/CREAT RATIO,UR 0.2(H) <0.2 01/24/2024 3:21 PM CDT [facility] Urine URINE SPECIMEN / Unknown Non-Blood / Unknown 01/24/2024 2:25 PM CDT 01/24/2024 2:47 PM CDT Arnulfo Dunn MD URINE Performing Organization Address [facility] de Phone Number [facility] [address] [place] [address], [place] * (ABNORMAL) UA W/ SEDIMENT EXAM REFLEXED PER CRITERIA (01/24/2024 2:25 PM CDT) COLOR Yellow Yellow Color 01/24/2024 3:05 PM CDT [facility] CLARITY Cloudy(A) Clear Clarity 01/24/2024 3:05 PM CDT [facility] SPECIFIC GRAVITY,URINE 1.015 1.010, 1.015, 1.020, 1.025 01/24/2024 3:05 PM CDT [facility] PH,URINE 5.0(A) 6.0, 7.0, 8.0, 5.5, 6.5, 7.5, 8.5 01/24/2024 3:05 PM CDT [facility] UROBILINOGEN, QUALITATIVE Normal Normal EU/dl 01/24/2024 3:05 PM CDT [facility] PROTEIN, URINE 30(A) Negative mg/dL 01/24/2024 3:05 PM CDT [facility] GLUCOSE, URINE Negative Negative mg/dL 01/24/2024 3:05 PM CDT [facility] KETONES,URINE Negative Negative mg/dL 01/24/2024 3:05 PM CDT [facility] BILIRUBIN,URI NE Negative Negative 01/24/2024 3:05 PM CDT [facility] OCCULT BLOOD,URINE Moderate(A) Negative 01/24/2024 3:05 PM CDT [facility] NITRITE Negative Negative 01/24/2024 3:05 PM CDT [facility] LEUKOCYTE ESTERASE Negative Negative 01/24/2024 3:05 PM CDT [facility] Urine URINE SPECIMEN / Unknown Non-Blood / Unknown 01/24/2024 2:25 PM CDT 01/24/2024 2:47 PM CDT Arnulfo Dunn MD [facility] [address] [place] [id number] * SCAN CORRESP-LABORATORY RESULTS (01/24/2024 12:33 PM CDT) Narrative 01/24/2024 12:33 PM CDT Ordered by an unspecified provider. Other Clinical Staff OTHER * SCAN CORRESP-EKG RESULTS (01/24/2024 12:33 PM CDT) Narrative 01/24/2024 12:33 PM CDT Ordered by an unspecified provider. Other Clinical Staff OTHER * SCAN CORRESP-IMAGING (01/24/2024 12:33 PM CDT) Anatomical Region Laterality Modality Other Narrative 01/24/2024 12:33 PM CDT Ordered by an unspecified provider. Other Clinical Staff OTHER * SCAN-CARDIAC STRIP (01/24/2024 7:49 AM CDT) Scanner OTHER * SCAN-CARDIAC STRIP (01/23/2024 7:28 PM CDT) Scanner OTHER * stool pathogen multiplex PCR (01/23/2024 2:22 PM CDT) Campylobacter NOT Detected NOT Detected 01/23/2024 6:01 PM CDT [facility] Salmonella NOT Detected NOT Detected 01/23/2024 6:01 PM CDT [facility] Shigella NOT Detected NOT Detected 01/23/2024 6:01 PM CDT [facility] Vibrio NOT Detected NOT Detected 01/23/2024 6:01 PM CDT [facility] Yersinia Enterocolitica NOT Detected NOT Detected 01/23/2024 6:01 PM CDT [facility] Shiga Toxin 1 NOT Detected NOT Detected 01/23/2024 6:01 PM CDT [facility] Shiga Toxin 2 NOT Detected NOT Detected 01/23/2024 6:01 PM CDT [facility] Norovirus NOT Detected NOT Detected 01/23/2024 6:01 PM CDT [facility] Rotavirus NOT Detected NOT Detected 01/23/2024 6:01 PM CDT [facility] Stool STOOL SPECIMEN / Unknown Non-Blood / Unknown 01/23/2024 2:22 PM CDT 01/23/2024 2:31 PM CDT Narrative [facility] - 01/23/2024 6:01 PM CDT This test is a Culture Independent Diagnostic Test (CIDT) therefore isolates are not available for susceptibility testing. ??Antibiotic treatment is often contraindicated and may be detrimental in cases of enteric infections, thus routine susceptibility testing is not recommended. Jared Gusman MD MICROBIOLOGY [facility] [address] [place] [address], * VANCOMYCIN TROUGH (01/23/2024 12:29 PM CDT) Pathologist [facility] VANCOMYCIN,TRO UGH 8.9 7.0 - 20.0 ug/mL 01/23/2024 1:23 PM CDT [facility] DATE OF LAST DOSE,TROUGH Not Given 01/23/2024 1:23 PM CDT [facility] TIME OF LAST DOSE,TROUGH Not Given 01/23/2024 1:23 PM CDT [facility] Blood BLOOD SPECIMEN / Unknown Butterfly / Unknown 01/23/2024 12:29 PM CDT 01/23/2024 12:45 PM CDT Katya Carranza MD CHEMISTRY Performing Organization Address City/[facility] Co de Phone Number [facility] [address] [place] [address], * SCAN-CARDIAC STRIP (01/23/2024 8:46 AM CDT) Scanner OTHER * EKG 12 LEAD (01/23/2024 7:20 AM CDT) [facility] Interpretation Atrial fibrillation with premature ventricular or aberrantly conducted complexes Nonspecific ST abnormality Abnormal ECG When compared with ECG of 22-Jun-2017 14:49, Atrial fibrillation has replaced Sinus rhythm ST now depressed in Lateral leads BEYOND NOW Ventricular Rate 98 BPM BEYOND NOW Atrial Rate BPM BEYOND NOW P-R Interval ms BEYOND NOW QRS Duration 76 ms BEYOND NOW QT 340 ms BEYOND NOW QTc 434 ms BEYOND NOW P [place] degrees BEYOND NOW R [place] 7 degrees BEYOND NOW T [place] 75 degrees BEYOND NOW 01/23/2024 7:20 AM CDT 01/26/2024 4:39 PM CDT Teri Dawkins NP EKG ORD Performing Organization Address City/[facility]/ZIP Co de Phone Number [place] NOW [place], [place] * (ABNORMAL) CBC no diff AM (01/23/2024 6:49 AM CDT) [facility] WHITE BLOOD COUNT 12.0(H) 4.5 - 11.0 thou/cu mm 01/23/2024 7:16 AM CDT [facility] RED BLOOD COUNT 3.96(L) 4.30 - 5.90 mil/cu mm 01/23/2024 7:16 AM CDT [facility] HEMOGLOBIN 11.9(L) 13.5 - 17.5 g/dL 01/23/2024 7:16 AM CDT [facility] HEMATOCRIT 35.4(L) 37.0 - 53.0 % 01/23/2024 7:16 AM CDT [facility] MCV 89 80 - 100 fL 01/23/2024 7:16 AM CDT [facility] MCH 30.1 26.0 - 34.0 pg 01/23/2024 7:16 AM CDT [facility] MCHC 33.6 32.0 - 36.0 g/dL 01/23/2024 7:16 AM CDT [facility] RDW 13.0 11.5 - 15.5 % 01/23/2024 7:16 AM CDT [facility] PLATELET COUNT 155 140 - 440 thou/cu mm 01/23/2024 7:16 AM CDT [facility] MPV 10.4 6.5 - 11.0 fL 01/23/2024 7:16 AM CDT [facility] NRBC 0.0 % 01/23/2024 7:16 AM CDT [facility] ABS NRBC 0.0 thou /cu mm 01/23/2024 7:16 AM CDT [facility] Blood BLOOD SPECIMEN / Unknown Butterfly / Unknown 01/23/2024 6:49 AM CDT 01/23/2024 7:03 AM CDT Jared Gusman MD [facility]OLOGY [facility] [address] [place] [address], * (ABNORMAL) C-REACTIVE PROTEIN (01/23/2024 6:49 AM CDT) C-REACTIVE PROTEIN 30.3(H) <0.5 mg/dL 01/23/2024 7:52 AM CDT [facility] Blood BLOOD SPECIMEN / Unknown Butterfly / Unknown 01/23/2024 6:49 AM CDT 01/23/2024 7:03 AM CDT Jared Gusman MD CHEMISTRY [facility] [address] [place] [address], * (ABNORMAL) PRO-BNP (01/23/2024 6:49 AM CDT) Pathologist [facility] PRO-BNP 7,800(H) <450 pg/mL 01/23/2024 7:41 AM CDT [facility] Blood BLOOD SPECIMEN / Unknown Butterfly / Unknown 01/23/2024 6:49 AM CDT 01/23/2024 7:03 AM CDT Narrative [facility] - 01/23/2024 7:41 AM CDT The following cut-points have been suggested for the use of proBNP for the diagnostic evaluation of heart failure (HF) in patient with acute dyspnea. Patients with eGFR >= 60 Diagnosis (rule in CHF) ? <50 Years Old ?450 pg/mL 50 - 75 Years Old ?900 pg/mL >75 Years Old ? 1800 pg/mL Exclusion (rule out CHF) Age Independent ?300 pg/mL A cutoff of 1200 pg/mL for patients with an eGFR <60 yields a diagnostic sensitivity of 89% and specificity of 72% for acute congestive heart failure. ? Jared Gusman MD SEND OUTS Performing Organization Address [facility] Co de Phone Number [facility] [address] [place] [address], * SCAN-CARDIAC STRIP (01/23/2024 3:11 AM CDT) Scanner OTHER * VANCOMYCIN (01/22/2024 10:15 PM CDT) Pathologist [facility] VANCOMYCIN <4.0 ug/mL 01/22/2024 10:48 PM CDT [facility] Comment:No Reference Range D efined. DATE OF LAST DOSE,RANDOM 01/20/2024 01/22/2024 10:48 PM CDT [facility] TIME OF LAST DOSE,RANDOM 6:00 PM 01/22/2024 10:48 PM CDT [facility] Blood BLOOD SPECIMEN / Unknown Butterfly / Unknown 01/22/2024 10:15 PM CDT 01/22/2024 10:21 PM CDT Jared Gusman MD CHEMISTRY Performing Organization Address [facility] de Phone Number [facility] [address] [place] [address], * SCAN-CARDIAC STRIP (01/22/2024 5:51 PM CDT) Scanner OTHER * SCAN-RADIOLOGY REPORT (01/22/2024 12:00 AM CDT) Only the most recent of2 resultswithin the time period is included. Anatomical Region Laterality Modality Other Scanner OTHER * ECHO TTE COMPLETE WO CONTRAST (01/20/2024 12:52 PM CDT) AORTIC VALVE MEAN PG 46 mmHg EJECTION FRACTION 59 % LVEDD 5.7 cm Anatomical Region Laterality Modality Ultrasound 01/20/2024 12:1 1 PM CDT Narrative 01/20/2024 1:33 PM CDT ECHOCARDIOGRAM ANDERS BROOKS ?Accession#: ?? [id number] : ?[id number] years Study Date: ?? 01/20/2024 12:11:40 PM Gender: M ? BP: ? 149/84 mmHg Height: 165.00 cm ? BSA: ?2.09 m? ? ? Weight: 103.00 kg ? Tech: ? MSR ?Referring MD: SOPHIE VILLAFANA Site: ? [facility] Reading Location: [facility] Patient Location: Inpatient. Procedure: 2D, Color Doppler and Spectral Doppler. Indication for study: (HFpEF) heart failure with preserved ejection fraction (HC); Aortic stenosis Cardiac Rhythm: Regular and with premature ventricular contractions.Study quality: Good. Final Impressions: 1. Mildly increased left ventricular size, mildly increased wall thickness, normal global systolic function, calculated EF of 59 %. 2. The aortic valve is calcified and sclerotic, severe stenosis(mean gradient 46 mm Hg) and mild regurgitation. 3. The mitral valve is MV sclerotic with a mean gradient of 5 mmHg at 85 bpm and trace mitral regurgitation. 4. Color Doppler suggests a possible PFO. 5. Compared to the prior study from 01/05/19, the aortic valve stenosis has progressed. Chamber Sizes and Function Mildly increased left ventricular size, mildly increased wall thickness, normal global systolic function, calculated EF of 59 %. No resting regional wall motion abnormality visualized. Left atrial size is normal. Left atrial pressure is normal. Right ventricular cavity size is normal, global systolic RV function is normal. RV wall thickness is normal. The right atrium is normal. Right atrial volume index is 22 ml/m? ? ?. Right atrial area is 17 cm? ? ?. The pulmonary artery is not well visualized. The sinus of Valsalva is normal sized. The ascending aorta is normal sized. Valves, RV Pressures and Diastolic Function The aortic valve is calcified and sclerotic, severe stenosis and mild regurgitation. The mitral valve is MV Mean PG 5mmHg and sclerotic, trace mitral regurgitation. Indeterminate pattern of LV diastolic filling. The tricuspid valve is normal in structure. Tricuspid regurgitation is trace regurgitation. Unable to assess right ventricular systolic pressure. The pulmonic valve is not well visualized. Unable to determine pulmonary regurgitation. Masses, Effusion, Shunts There is no pericardial effusion. The inferior vena cava is dilated, respiratory size variation greater than 50%. Color flow Doppler imaging suggests a possible PFO. MEASUREMENTS AND CALCULATIONS 2-D Measurements and LV Function: LVID (d) 5.7 cm Planimetered EF 59 % LVID (s) 3.3 cm LV FS% (2D) ? 42 % IVS (d) ??0.9 cm LVOT diameter ?? 2.1 cm LVPW (d) 1.0 cm HR ?84 bpm Ao Sinus 3.8 cm LA Vol index ?29 ml/m2 Asc Ao ?? 3.7 cm RA Vol index ?22 ml/m2 ?RA area ? 17 cm?RV Max 4C (d) ?? 3.8 cm Diastology: Mitral ?Tissue Doppler E Peak 1.2 m/s ??e', Septum ? 0.06 m/s A Peak 1.3 m/s ??e', Lateral ?0.05 m/s E/A ?1.0 ?E/e' Average ?? 21.62 DT ? 132 msec Aortic Valve: Vmax ? 4.0 m/s ??JOAN (V) ?? 0.71 cm? AI P 1/2 331 msec VTI ?0.92 m ?? JOAN (I) ?? 0.64 cm? ? ? LVOT V max 0.8 m/s ??Max PG ?63 mmHg LVOT VTI ?? 0.18 m ?? Mean PG ?? 46 mmHg SV ? 58 ml ?Dim Index 0.19 SV index ?? 28 ml/m? ? ? CO ?4.9 l/min ?CI ?2.3 l/min/m? ? ? Mitral Valve: MVA ? 5.7 cm? ? ? MV P 1/2 ??38 msec MV Mean G 5 mmHg MV VTI ?0.35 m Tricuspid Valve and estimated PA pressures: TAPSE 2.4 cm . This study was interpreted by an [facility] accredited facility. CC: HIM (med records) [facility], Med/Surg - IP [facility]. ??Final ?? Procedure Note Anders Em MD - 01/20/2024 ECHOCARDIOGRAM ANDERS BROOKS : 1935 89 years Study Date: 01/20/2024 12:11:40 PM Gender: M BP: 149/84 mmHg Height: 165.00 cm BSA: 2.09 m? ? ? Weight: 103.00 kg Tech: MSR Referring MD: SOPHIE VILLAFANA Site: [facility] Reading Location: Mobile JOSÉ MANUEL Patient Location: Inpatient. Procedure: 2D, Color Doppler and Spectral Doppler. Indication for study: (HFpEF) heart failure with preserved ejectionfraction (HC); Aortic stenosis Cardiac Rhythm: Regular and with premature ventricular contractions.Studyquality: Good. Final Impressions: 1. Mildly increased left ventricular size, mildly increased wallthickness, normal global systolic function, calculated EF of 59 %. 2. The aortic valve is calcified and sclerotic, severe stenosis(meangradient 46 mm Hg) and mild regurgitation. 3. The mitral valve is MV sclerotic with a mean gradient of 5 mmHg at 85bpm and trace mitral regurgitation. 4. Color Doppler suggests a possible PFO. 5. Compared to the prior study from 01/05/19, the aortic valve stenosishas progressed. Chamber Sizes and Function Mildly increased left ventricular size, mildly increased wall thickness,normal global systolic function, calculated EF of 59 %. No restingregional wall motion abnormality visualized. Left atrial size is normal.Left atrial pressure is normal. Right ventricular cavity size is normal,global systolic RV function is normal. RV wall thickness is normal. Theright atrium is normal. Right atrial volume index is 22 ml/m? ? ?. Rightatrial area is 17 cm? ? ?. The pulmonary artery is not well visualized. Thesinus of Valsalva is normal sized. The ascending aorta is normal sized. Valves, RV Pressures and Diastolic Function The aortic valve is calcified and sclerotic, severe stenosis and mildregurgitation. The mitral valve is MV Mean PG 5mmHg and sclerotic, tracemitral regurgitation. Indeterminate pattern of LV diastolic filling. Thetricuspid valve is normal in structure. Tricuspid regurgitation is traceregurgitation. Unable to assess right ventricular systolic pressure. Thepulmonic valve is not well visualized. Unable to determine pulmonaryregurgitation. Masses, Effusion, Shunts There is no pericardial effusion. The inferior vena cava is dilated,respiratory size variation greater than 50%. Color flow Doppler imagingsuggests a possible PFO. MEASUREMENTS AND CALCULATIONS 2-D Measurements and LV Function: LVID (d) 5.7 cm Planimetered EF 59 % LVID (s) 3.3 cm LV FS% (2D) 42 % IVS (d) 0.9 cm LVOT diameter 2.1 cm LVPW (d) 1.0 cm HR 84 bpm Ao Sinus 3.8 cm LA Vol index 29 ml/m2 Asc Ao 3.7 cm RA Vol index 22 ml/m2 RA area 17 cm? ? ? RV Max 4C (d) 3.8 cm Diastology: Mitral Tissue Doppler E Peak 1.2 m/s e', Septum 0.06 m/s A Peak 1.3 m/s e', Lateral 0.05 m/s E/A 1.0 E/e' Average 21.62 DT 132 msec Aortic Valve: Vmax 4.0 m/s JOAN (V) 0.71 cm? ? ? AI P 1/2 331 msec VTI 0.92 m JOAN (I) 0.64 cm? ? ? LVOT V max 0.8 m/s Max PG 63 mmHg LVOT VTI 0.18 m Mean PG 46 mmHg SV 58 ml Dim Index 0.19 SV index 28 ml/m? ? ? CO 4.9 l/min CI 2.3 l/min/m? ? ? Mitral Valve: MVA 5.7 cm? ? ? MV P 1/2 38 msec MV Mean G 5 mmHg MV VTI 0.35 m Tricuspid Valve and estimated PA pressures: TAPSE 2.4 cm . This study was interpreted by an [facility] accredited facility. CC: HIM (med records) [facility], Med/Surg - IP [facility]. 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 Multiple bilateral simple renal cysts again noted. Dictated by Anders Torres MD @ 12/20/2023 2:39:15 PM (Electronically Signed) Narrative 12/20/2023 2:39 PM CDT For Patients: ??As a result of the 21st Century Cures Act, medical imaging exams and procedure reports are released immediately into your electronic medical record. ??You may view this report before your referring provider. ??If you have questions, please contact your health care provider. CLINICAL HISTORY: Chronic kidney disease, stage IV (severe) COMPARISON: CT 11/02/2017 TECHNIQUE: Lopez scale and color Doppler images were acquired of the kidneys and urinary bladder. FINDINGS: Bilateral renal cortical atrophy. No hydronephrosis. Multiple bilateral simple anechoic renal cysts are present measuring 3.1 x 3.0 x 2.7 cm, 2.5 x 2.6 x 2.3 cm and 1.8 x 1.8 x 1.6 cm on the right. Simple cysts on the left measure 3.5 x 3.8 x 3.2 cm and 5.2 x 5.4 x 3.9 cm. The right kidney measures 9.3cm in length and the left kidney measures 12.2cm in length. The renal cortex measures 9 millimeters on the right and 12 millimeters on the left. The urinary bladder appears normal. Prevoid bladder volume 664 cc. Postvoid bladder volume 58 cc. Procedure Note Anders Torres MD - 12/20/2023 For Patients: As a result of the Cures Act, medical imagingexams and procedure reports are released immediately into your electronicmedical record. You may view this report before your referring provider.If you have questions, please contact your health care provider. CLINICAL HISTORY: Chronic kidney disease, stage IV (severe) COMPARISON: CT 11/02/2017 TECHNIQUE: Lopez scale and color Doppler images were acquired of the kidneys andurinary bladder. FINDINGS: Bilateral renal cortical atrophy. No hydronephrosis. Multiple bilateralsimple anechoic renal cysts are present measuring 3.1 x 3.0 x 2.7 cm, 2.5x 2.6 x 2.3 cm and 1.8 x 1.8 x 1.6 cm on the right. Simple cysts on theleft measure 3.5 x 3.8 x 3.2 cm and 5.2 x 5.4 x 3.9 cm. The right kidneymeasures 9.3cm in length and the left kidney measures 12.2cm in length.The renal cortex measures 9 millimeters on the right and 12 millimeters onthe left. The urinary bladder appears normal. Prevoid bladder volume 664 cc.Postvoid bladder volume 58 cc. 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 Multiplebilateral simple renal cysts again noted. Dictated by Anders Torres MD @ 12/20/2023 2:39:15 PM (Electronically Signed) Dinesh Fermin MD * (ABNORMAL) CREATININE,ISTAT (12/02/2023 11:57 AM CDT) CREATININE, POCT 3.00(H) 0.57 - 1.11 mg/dL 12/02/2023 12:10 PM CDT [facility] Comment:Caution: Patients ta yen Hydroxyurea have falsely increased iStat Creatinine results. Verify creatinine results ordering a Creatinine (02803.2) eGFR 19(L) >90 mL/min/1.7 3m2 12/02/2023 12:10 PM CDT [facility] Comment:As of 2021, eG FR is calculated by the CKD-EPI creatinine equation without race adjustment. eGFR can be influenced by muscle mass, exercise, and diet. The reported eGFR is an estimation only and is only applicable if the renal function is stable. Blood BLOOD SPECIMEN / Unknown 12/02/2023 11:57 AM CDT 12/02/2023 12:10 PM CDT Rodney Vergara MD CHEMISTRY [facility] [address] [place] [address], * (ABNORMAL) LIPID PANEL W REFLEX MEASURED LDL (12/02/2023 11:54 AM CDT) CHOLESTEROL,TOTAL 128 100 - 199 mg/dL 12/02/2023 11:32 PM CDT [facility] Comment: Cholesterol, Total Reference Ranges Desirable <200 mg/dL Borderline 200-239 mg/dL High >=240 mg/dL TRIGLYCERIDES 200(H) <150 mg/dL 12/02/2023 11:32 PM CDT [facility] HDL CHOLESTEROL 29(L) >40 mg/dL 11:32 PM CDT [facility] NON-HDL CHOLESTEROL 99 <145 mg/dl 12/02/2023 11:32 PM CDT [facility] CHOL/HDL RATIO 4.41 <4.50 12/02/2023 11:32 PM CDT [facility] LDL CHOLESTEROL 59 <=130 mg/dL 12/02/2023 11:32 PM CDT [facility] VLDL CHOLESTEROL 40(H) <=30 mg/dL 12/02/2023 11:32 PM CDT [facility] PROVIDER ORDERED STATUS RANDOM 12/02/2023 11:32 PM CDT [facility] Blood BLOOD SPECIMEN / Unknown Butterfly / Unknown 12/02/2023 11:54 AM CDT 12/02/2023 11:56 AM CDT Rodney Vergara MD CHEMISTRY Performing Organization Address City/State/ZIP Co nd Phone Number [facility] [address] [place] [address], * HEMOGLOBIN A1C MONITORING (POCT) (12/02/2023 11:54 AM CDT) HEMOGLOBIN A1C MONITORING (POCT) 6.2 <=6.4 % 12/02/2023 12:18 PM CDT [facility] Blood BLOOD SPECIMEN / Unknown Butterfly / Unknown 12/02/2023 11:54 AM CDT 12/02/2023 11:56 AM CDT Narrative [facility] - 12/02/2023 12:18 PM CDT ? (<=6.9%) ? Indicates good control ? (7.0% to 7.9%) ? Indicates fair control ? (>=8.0%) ? Indicates poor control ?? NOTE: ??These thresholds are guidelines and ?individual targets may vary. Falsely low levels may be seen with: Recent Transfusion, Recent Significant Blood Loss, Hemolytic Diseases, or Falsely elevated levels may be seen with: Untreated Anemias, Splenectomy ? Rodney Vergara MD CHEMISTRY [facility] [address] [place] [address], [place] [phone] from Last 3 Months Advance Directives * DNR (Latest Code Status on File) Date Activated Date Inactivated Comments 01/22/2024 7:00 PM 01/26/2024 2:50 PM Question Answer Comments Code Status Discussion: Reviewed Preferences * Full Code Date Activated Date Inactivated Comments 06/21/2017 5:46 AM 06/24/2017 1:56 PM * Full Code Date Activated Date Inactivated Comments 08/30/2016 12:11 PM 09/01/2016 1:24 PM * Full Code Date Activated Date Inactivated Comments 08/30/2016 5:56 AM 08/30/2016 12:07 PM * Full Code Date Activated Date Inactivated Comments 12/30/2008 11:58 AM 01/04/2009 1:38 PM Care Teams Band Lining Bander Relationship Specialty Start Date End Date Rodney Vergara MD [address] [place] [address] PCP - General Family Practice 03/16/22
--- OUTSIDE RECORDS SUMMARY | 2024-01-30 00:42 | XMS_ITS | Encounter Summary ---
Author Organization [facility] Address [address] [place] [address] Care Team Providers Care Vehicle Service Attendant Name Role Phone Rodney Vergara MD Primary Care Provider [phone] Encounter Details Date Type Department Care Team (Late st Contact Info) Description 12/29/2023 Telephone [facility] [address] [facility] [address] [place] [address] Luanne Florentino, RN [address] [place] [address] Social History Tobacco Use Types Packs/Day Years Used Date Smoking Tobacco: Former Cigarettes 2 48 1 954 - 2002 Passive Smoke Exposure: Past Smokeless Tobacco: Never Alcohol Use Standard Drinks/Week Comments Not Currently 0 (1 standard drink = 0.6 oz pur e alcohol) Sex and Gender Information Value Date Recorded Sex Assigned at Not on file Legal Sex Male 2:31 PM EDT Gender Identity Not on file Sexual Orientation Not on file documented as of this encounter Miscellaneous Notes * Telephone Encounter - Luanne Florentino RN - 12/29/2023 3:27 PM CDT Pt notified and voiced understanding. * Telephone Encounter - Luanne Florentino RN - 12/29/2023 9:32 AM CDT ----- Message from Dinesh Fermin sent at 12/28/2023 11:58 AM CDT ----- Luanne, Please notify patient that I have reviewed all tests that we ordered (blood and urine) and that thekidney function is slightly better than the last test, the electrolytes are normal, the urine test normal, and I recommend we do not make any changes for now. He should follow-up with me as schedule and we will discuss in more detail and determine the frequency at which we monitor his labs at that time. Thanks, Richard Fermin MD documented in this encounter Plan of Treatment Not on file documented as of this encounter Visit Diagnoses Not on filedocumented in this encounter Care Teams Vehicle Service Attendant Relationship Specialty Start Date End Date Rodney Vergara MD [address] [place] [address] PCP - General Family Medicine 12/02/23 documented as of this encounter
--- OUTSIDE RECORDS SUMMARY | 2024-01-30 00:42 | XMS_ITS | Encounter Summary ---
Author Organization [facility] Address [address] [place] [address] Care Team Providers Care Structural Test Engineer Name Role Phone Rodney Vergara MD Primary Care Provider [phone] Encounter Details Date Type Department Care Team (Late st Contact Info) Description 12/02/2023 Documentation Only [facility] [address] [place] [address] No, Pcp Social History Tobacco Use Types Packs/Day Years Used Date Smoking Tobacco: Never Assessed Sex and Gender Information Value Date Recorded Sex Assigned at Not on file Legal Sex Male 2:31 PM EDT Gender Identity Not on file Sexual Orientation Not on file documented as of this encounter Plan of Treatment Not on file documented as of this encounter Visit Diagnoses Not on filedocumented in this encounter Care Teams Structural Test Engineer Relationship Specialty Start Date End Date Rodney Vergara MD [address] [place] [address] [place] [address] PCP - General Family Medicine 12/02/23 documented as of this encounter
--- OUTSIDE RECORDS SUMMARY | 2024-01-30 00:42 | XMS_ITS | Clinical Summary ---
Author Organization [facility] [place] [place] Address [address] [facility] [place] [address] Phone Care Team Providers Care Hebrew Professor Name Role Phone Rodney Vergara MD Primary Care Provider [phone] Allergies Active Allergy Reactions Criticality Noted Date Comments Metformin Diarrhea Medium 02/02/2021 Medications acetaminophen (TYLENOL) 500 MG tablet Take 1,000 mg by mouth in the morning and 1,000 mg in the evening. Active albuterol HFA (PROVENTIL HFA;VENTOLIN HFA) 108 (90 Base) MCG/ACT inhaler Inhale 1-2 Puffs by mouth every 4 hours if needed for Shortness of Breath 2nd choice or Wheezing 1st choice. 4 Active ipratropium-alb uterol (DUO-NEB) 0.5-2.5 mg/3 mL nebulizer solution INHALE THREE MLS BY MOUTH VIA NEBULIZER FOUR TIMES A DAY NEEDED 3 Active aspirin (ST MALACHI) 81 MG EC tablet Take 81 mg by mouth in the morning. 2 Active clopidogrel (PLAVIX) 75 MG tablet Take 75 mg by mouth in the morning. 4 Active losartan (COZAAR) 50 MG tablet Take 50 mg by mouth in the morning. 4 Active metoprolol succinate XL (TOPROL XL) 25 MG 24 hr tablet Take 25 mg by mouth in the morning. 4 Active pravastatin (PRAVACHOL) 80 MG tablet Take 80 mg by mouth in the morning. 4 Active tamsulosin (FLOMAX) 0.4 MG 24 hr capsule Take 0.8 mg by mouth in the morning. 4 Active torsemide (DEMADEX) 20 MG tablet Take 1 tablet by mouth every morning Active triamcinolone (KENALOG) 0.5 % cream Apply topically to affected area(s) two times daily. Use for up to 2 weeks and take a week off. 4 Active Umeclidinium Aurora 62.5 MCG/ACT aerosol powder Inhale 1 puff in the morning. 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 on 08/30/201608/2016 underwent an uncomplicated SFA cutdown with successful repair of his popliteal artery aneurysm with stents and successful treatment of his right SFA stenosis History of operative procedure on knee 5 Overview (12/16/2023): L - 10/26/13 R - 06/21/17 Osteoarthritis of knee 05/31/2013 Multiple premature ventricular complexes 013 Abdominal aortic aneurysm without rupture 2008 Overview (12/16/2023): 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 [address] [place] [phone] Luanne Florentino RN 12/28/2023 Office Communication [facility] [address] [facility] [address] [place] [phone] Cesar Rocha 12/16/2023 9:30 AM CDT Office Visit [facility] [place] [address] Dinesh Fermin MD Chronic kidney disease stage 4 (HCC) (Primary Dx); Benign prostatic hyperplasia with lower urinary tract symptom; Vascular disorder of lower extremity (HCC); Abdominal aortic aneurysm without rupture, not otherwise specified (HCC); Hypertensive chronic kidney disease with stage 1 through stage 4 chronic kidney disease, or unspecified chronic kidney disease; Emphysematous bronchitis (HCC); Type 2 diabetes mellitus with diabetic chronic kidney disease (HCC); Chronic diastolic heart failure (HCC); Morbid obesity (HCC); Aortic valve stenosis 12/02/2023 Office Communication [facility] [address] [facility] [address] [place] [address] Rodney Vergara MD 12/02/2023 Documentation Only [facility] [address] No, Pcp 12/02/2023 Documentation Only [facility] [id number] No, Pcp from Last 3 Months Immunizations Name Administration Dates Next Due Influenza Vaccine, Quadrivalent, Adjuvanted 12/28,02/03/2022,01/09/2020 Pfizer SARS-COV-2 08/06/2021 Pfizer SARS-CoV-2 Bivalent 30 mcg/0.3 mL 022 Family History Medical History Relation Comments Brain Aneurysm Father Cancer Sister breast cancer Relation Status Comments Brother Alive Father Mother Sister Alive Social History Tobacco Use Types Packs/Day Years Used Date Smoking Tobacco: Former Cigarettes 2 48 1 954 - 2001 Passive Smoke Exposure: Past Smokeless Tobacco: Never Tobacco Cessation:Counseling Given: Not Answered Alcohol Use Standard Drinks/Week Comments Not Currently 0 (1 standard drink = 0.6 oz pur e alcohol) Sex and Gender Information Value Date Recorded Sex Assigned at Not on file Legal Sex Male 2:31 PM EDT Gender Identity Not on file Sexual Orientation Not on file Last Filed Vital Signs Vital Sign Reading Time Taken Comments Blood Pressure 136/70 12/16/2023 9:04 AM CDT Pulse 80 12/16/2023 9:04 AM CDT Temperature - - Respiratory Rate - - Oxygen Saturation 95% 12/16/2023 9:04 AM CDT Inhaled Oxygen Concentration - - Weight 59 kg (130 lb) 12/16/2023 9:04 AM CDT Height 162.6 cm (5' 4) 12/16/2023 9:04 AM CDT Body Mass Index 22.31 12/16/2023 9:04 AM CDT Plan of Treatment Health Maintenance Due Date Last Done Comments Pneumococcal Vaccine: 65+ Years (1 of 2 - PCV) 01/11/1941 Influenza Vaccine (#1) 2023 3, 02/03/2022, 01/09/2020 Diabetes: Ophthalmology Exam 12/02/2023 Diabetes: Pedal Pulse Checked 12/02/2023 Diabetes: Sensory Foot Exam 12/02/2023 Diabetes: Visual Foot Exam 12/02/2023 Diabetes: Hemoglobin A1C 03/02/2024 024, 09/23/2023 Hepatitis B Vaccine Aged Out No longe r eligible based on patient's age to complete this topic Procedures Procedure Name Priority Date/Time Associated Diagnosis Comments US RENAL COMPLETE Routine 12/20/2023 3:4 3 PM CDT Chronic kidney disease stage 4 (HCC) Benign prostatic hyperplasia with lower urinary tract symptom URINALYSIS WITH MICROSCOPIC Routine 12/20/2023 6:55 AM CDT Chronic kidney disease stage 4 (HCC) PROTEIN / CREATININE RATIO, URINE Routine 12/20/2023 6:55 AM CDT Chronic kidney disease stage 4 (HCC) URINE ALBUMIN / CREATININE RATIO Routine 12/20/2023 6:55 AM CDT Chronic kidney disease stage 4 (HCC) PTH, INTACT Routine 12/20/2023 6:55 AM CDT Chronic kidney disease stage 4 (HCC) CBC Routine 12/20/2023 6:55 AM CDT Chronic kidney disease stage 4 (HCC) RENAL FUNCTION PANEL Routine 12/20/2023 6:55 AM CDT Chronic kidney disease stage 4 (HCC) BASIC METABOLIC PANEL (BMP) (EXTERNAL LAB ENTRY) Routine 12/05/2023 from Last 3 Months Results * Ultrasound renal complete (12/20/2023 3:43 PM CDT) Anatomical Region Laterality Modality Body Ultrasound us Dinesh Fermin MD IMG US PROCEDURES Final Resul t * (ABNORMAL) Urine Protein / creatinine ratio (12/20/2023 6:55 AM CDT) Creatinine, Ur 40 20 - 320 mg/dL See order comments Urine Protein/Creati nine Ratio 150(H) 25 - 148 mg/g creat See order comments Protein/Creati nine Ratio, Urine 0.150(H) 0.025 - 0.148 mg/mg creat See order comments Protein Urine Random 6 5 - 25 mg/dL See order comments Urine (Urine, Clean Catch) 12/20/2023 6:55 AM CDT 12/20/2023 6:56 AM CDT Narrative Resulting Agency Comment Performing Organization Information: ?Site ID: CB ?Name: [facility] [employer] ?Address: [address] [place] [phone] ?Director: Gasper Aldridge us Dinesh Fermin MD LAB URINE ORDERABLES Final Re sult [facility] See order comments [place] [address] * Urine Albumin / Creatinine Ratio (12/20/2023 6:55 AM CDT) Creatinine, Ur 40 20 - 320 mg/dL See order comments Urine Microalbumin 0.4 See Note: mg/dL See order comments Comment: Reference Range: Reference Range Not established Microalb/Creat Ratio 10 <30 mg/g creat See order comments Comment: The ADA defines abnormalities in albumin excretion as follows: Albuminuria Category ?Result (mg/g creatinine) Normal to Mildly increased ?? <30 Moderately increased ? 30-299 Severely increased ? > OR = 300 The ADA recommends that at least two of three specimens collected within a 3-6 month period be abnormal before considering a patient to be within a diagnostic category. Urine (Urine, Clean Catch) 12/20/2023 6:55 AM CDT 12/20/2023 6:56 AM CDT Narrative Resulting Agency Comment Performing Organization Information: ?Site ID: ?Name: [facility] ?Address: [address] [place] [phone] ?Director: Gasper Aldridge us Dinesh Fermin MD LAB URINE ORDERABLES Final Re sult [facility] See order comments [place] [address] * Urinalysis with microscopic (12/20/2023 6:55 AM CDT) Color, Urine YELLOW YELLOW See ord er comments Appearance Urine CLEAR CLEAR See order comments Specific [place], UA 1.010 1.001 - 1.035 See order comments pH Urine 5.5 5.0 - 8.0 See order comments Glucose, Ur NEGATIVE NEGATIVE See orde r comments Bilirubin, Urine NEGATIVE NEGATIVE See order comments Ketones, Urine NEGATIVE NEGATIVE See o rder comments Hemoglobin Ur Ql Strip NEGATIVE NEGATIVE See order comments Protein, Ur NEGATIVE NEGATIVE See orde r comments Nitrite, Urine NEGATIVE NEGATIVE See o rder comments WBC Esterase Urine NEGATIVE NEGATIVE See order comments WBC, Urine NONE SEEN < OR = 5 /HPF See order comments RBC, Urine NONE SEEN < OR = 2 /HPF See order comments Epithelial Cells in Urine NONE SEEN < OR = 5 /HPF See order comments Bacteria NONE SEEN NONE SEEN /HPF See order comments Hyaline Casts, Urine NONE SEEN NONE SEEN /LPF See order comments Note: See order comments Comment: This urine was analyzed for the presence of WBC, RBC, bacteria, casts, and other formed elements. Only those elements seen were reported. Urine (Urine, Clean Catch) 12/20/2023 6:55 AM CDT 12/20/2023 6:56 AM CDT Narrative Resulting Agency Comment Performing Organization Information: ?Site ID: ?Name: [employer] ?Address: [address] [place] [phone] ?Director: Gasper Aldridge us Dinesh Fermin MD LAB URINE ORDERABLES Final Re sult [facility] See order comments [place] [address] * (ABNORMAL) CBC (12/20/2023 6:55 AM CDT) WBC 11.1(H) 3.8 - 10.8 Thousand/uL See order comments RBC 4.61 4.20 - 5.80 Million/uL See order comments Hemoglobin 13.9 13.2 - 17.1 g/dL See order comments Hematocrit 44.5 38.5 - 50.0 % See order comments MCV 96.5 80.0 - 100.0 fL See order comments MCH 30.2 27.0 - 33.0 pg See order comments MCHC 31.2(L) 32.0 - 36.0 g/dL See order comments RDW 12.4 11.0 - 15.0 % See order comments Platelets 194 140 - 400 Thousand/uL See order comments MPV 10.9 7.5 - 12.5 fL See order comments Blood (Blood, Venous) 12/20/2023 6:55 AM CDT 12/20/2023 6:56 AM CDT Narrative Resulting Agency Comment Performing Organization Information: ?Site ID: CB ?Name: [facility] [place] ?Address: [address] [place] [address] [place] [address] ?Director: Gasper Aldridge Dinesh Fermin MD LAB BLOOD ORDERABLES Final Re sult [facility] See order comments [place] [address] * (ABNORMAL) PTH, intact (12/20/2023 6:55 AM CDT) Parathyroid Hormone, Intact 129(H) 16 - 77 pg/mL See order comments Comment: Interpretive Guide ?Intact PTH ? Calcium ? ------- Normal Parathyroid ?Normal ? Normal Hypoparathyroidism ?Low or Low Normal ?Low Hyperparathyroidism ?? Primary ?Normal or High ? High ?? Secondary ?High ? Normal or Low ?? Tertiary ? High ? High Non-Parathyroid ?? Hypercalcemia ?Low or Low Normal ?High Blood (Blood, Venous) 12/20/2023 6:55 AM CDT 12/20/2023 6:56 AM CDT Narrative Resulting Agency Comment Performing Organization Information: ?Site ID: [id number] ?Name: [facility] [place] ?Address: [address] [place] [address] [place] [address] ?Director: Gasper Aldridge Dinesh Fermin MD LAB BLOOD ORDERABLES Final Re sult Performing Organization Address City/[facility]/ZIP Co de Phone Number [facility] See order comments [place] [address] * (ABNORMAL) Renal function panel (12/20/2023 6:55 AM CDT) Glucose 118(H) 65 - 99 mg/dL See order comments Comment: ? Fasting reference interval For someone without known diabetes, a glucose value between 100 and 125 mg/dL is consistent with prediabetes and should be confirmed with a follow-up test. BUN 53(H) 7 - 25 mg/dL See order comments Creatinine 2.61(H) 0.70 - 1.22 mg/dL See order comments eGFR CKD-EPI CR 2020 23(L) > OR = 60 mL/min/1.7 3m2 See order comments BUN/Creatinine Ratio 20 6 - 22 (calc) See order comments Sodium 141 135 - 146 mmol/L See order comments Potassium 5.3 3.5 - 5.3 mmol/L See order comments Chloride 107 98 - 110 mmol/L See order comments Bicarbonate (CO2) 19(L) 20 - 32 mmol/L See order comments Calcium 8.9 8.6 - 10.3 mg/dL See order comments Phosphorus 3.2 2.1 - 4.3 mg/dL See order comments Albumin 4.7 3.6 - 5.1 g/dL See order comments Blood (Blood, Venous) 12/20/2023 6:55 AM CDT 12/20/2023 6:56 AM CDT Narrative Resulting Agency Comment Performing Organization Information: ?Site ID: CB ?Name: [facility] ?Address: [address] [place] [phone] ?Director: Gasper Aldridge us Dinesh Fermin MD LAB BLOOD ORDERABLES Final Re sul [facility] See order comments [place] [address] * (ABNORMAL) Basic Metabolic Panel (BMP) (12/05/2023) Sodium 136 mEq/L [facility] Potassium 5.3(H) mEq/L [facility] Chloride 101 [facility] [place] Dioxide 20(L) mmol/L [facility] Calcium 8.4(L) mg/dL [facility] BUN 58(H) mg/dL [facility] Creatinine 2.85(H) mg/dL [facility] Glucose 96 mg/dL [facility] eGFR 21(L) [facility] Anion Gap 15 [facility] 12/05/2023 Historical Provider LAB BLOOD ORDERABLES Pilar l Result [facility] from Last 3 Months Insurance [facility] MEDICARE Care Teams Hebrew Professor Relationship Specialty Start Date End Date Rodney Vergara [place] [address] PCP - General Family Medicine 12/02/23
--- OUTSIDE RECORDS SUMMARY | 2024-01-30 00:42 | XMS_ITS | Encounter Summary ---
Author Organization [facility] Address [address] [place] [address] Care Team Providers Care Insurance Defense Paralegal Name Role Phone Rodney Vergara MD Primary Care Provider [phone] Reason for Referral * Imaging (Routine) - Closed Specialty Diagnoses / Procedures Referred By Contac t Referred To Contact Diagnoses Chronic kidney disease stage 4 (HCC) Benign prostatic hyperplasia with lower urinary tract symptom Procedures Ultrasound renal complete Dinesh Fermin MD [address] [place] [address] Phone: tel: fax: [facility] [address] [place] [address] Phone: tel: fax: Referral ID Status Reason Start Date Expiration Date Visits Re quested Visits Authorized [id number] Closed 12/16/2023 12/15/2024 1 1 Reason for Visit * Reason Comments CKD New Patient * Nephrology Services (Urgent) - Closed Specialty Diagnoses / Procedures Referred By Contteri t Referred To Contact Nephrology Diagnoses Chronic kidney disease stage 4 (HCC) Rodney Vergara MD [address] [place] [address] Phone: tel: fax: [facility] [address] [place] [address] Phone: tel: fax: Referral ID Status Reason Start Date Expiration Date Visits Re quested Visits Authorized [id number] Closed 12/02/2023 12/01/2024 1 1 Encounter Details Date Type Department Care Team (Late st Contact Info) Description 12/16/2023 9:30 AM CDT Office Visit [facility] [address] [place] [phone] Dinesh Fermin MD [address] [place] [address] Chronic kidney disease stage 4 (HCC) (Primary [...] (HCC); Morbid obesity (HCC); Aortic valve stenosis Social History Tobacco Use Types Packs/Day Years [...] on file documented as of this encounter Last Filed Vital Signs Vital Sign Reading [...] Mass Index 22.31 12/16/2023 9:04 AM CDT documented in this encounter Patient Instructions * Patient Instructions* Cesar Rocha - 12/16/2023 9:30 AM CDT Images from the original note were not included. Walter, You have chronic kidney disease stage 4. We are going to do some additional testing including a blood test, urine test, and ultrasound of the kidneys. Lab and ultrasound orders will be faxed to [facility]. They will call you to schedule the ultrasound We will do a follow-up soon after these are done (in about a month) to go over these results and talk further about how we can keep your kidneys working as long as possible! For now, continue your same medications and focus on avoiding bananas and oranges and following a low salt diet. I think a good target for fluid intake would be about 60 ounces per day. I will see you in a month or so! Richard Fermin MD At [facility], our goal is to work with you to provide the highest quality of care throughout your journey with kidney disease. In addition to yourself, your healthcare team includes Nephrologists, Advanced Practice Providers (APPs), Registered Nurses, Medical Assistants, and may include a Registered Dietitian who all work together to ensure your kidney care is well managed. How YOU help your healthcare team: Know your medications Keep an accurate list that includes the medication name, what dose you take, how frequently you take the medication and bring your bottles or list to every appointment! Complete your lab work as recommended by your provider This tells us how your kidneys are functioning, and often both blood and urine labs are needed It is important to complete pre-visit labs 1-2 weeks before your next appointment Recheck labs are also just as important and often necessary after a change in your medications or over a certain period of time to ensure your kidney function remains stable Monitor and keep track of your Blood Pressure The recommended goal is to keep your blood pressure less than 130/80 to help slow/delay the progression of kidney disease. Take blood pressure medications as directed. Other tips for healthy kidneys: If you smoke, strongly consider quitting Focus on good nutrition, exercise, and stay hydrated! If diabetic, monitor and maintain your blood sugar levels - aim blood sugar between 80 to 130, and a hemoglobin A1C of 7.0 or less Have your cholesterol checked. If interested, ask your provider for a referral to see our Renal Dietitian Avoid certain medications Examples: NSAIDS, certain cold medications that include ephedrine, phenylpropanolamine or pseudoephedrine (Sudafed, Actifed). When to call [facility]: Any new symptoms: Consistently elevated blood pressure greater than 140/90 with or without dizziness Increased leg swelling or unexplained weight gain greater than 3 to 5 pounds If another provider recommends you complete a CT scan or MRI with IV contrast. Let that provider know you follow nephrology and call us. It may be recommended that you complete the scan without contrast dye. When to go to the Emergency Room: If you get dehydrated, or have excessive nausea, headache or vomiting, you may need to get IV fluids. If you cannot pass your urine completely (empty your bladder) as this may be a sign of an Acute Injury to your Kidney. We are all here to provide you with the best renal care, and want you to feel free to call us when you have questions or concerns. Please refer to the address and telephone number listed on your After Visit Summary and choose the option to speak to your medical team. Thank you, From all of us at [facility] documented in this encounter Progress Notes * Dinesh Fermin MD - 12/16/2023 9:30 AM CDT Images from the original note were not included. Patient: Walter Brooks V Date of : 1935 Chart: [id number] PCP: Rodney Vergara MD Date of Service: 12/16/2023 Chief Complaint: I was asked by Dr Cortez to evaluate Walter Brooks V for CKD Stage 4 Subjective: Walter is here today for evaluation of CKD Stage 4. In preparation for this visit today, I have reviewed outside medical records from [facility] that inform the history below. As part of this outside medical record review, the following was reviewed priorto the visit today: -Cr trend: 1.2 in 2020 -> 1.4 in 2021 -> 1.6 in 2022 -> 1.8 in early 2023 -> 2.6-2.9 in -UA in 2017 was normal -Urine alb:Cr 34 mg/g in 2020 -CT 2018 no hydronephrosis (see report below) Walter reports to me that he had AAA repair in 2008 that was extensive. He was followed closely after this. 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 He also has worsening aortic stenosis (moderate on last echo years ago). He does not follow with vascular or cardiology as he does not wish to undergo any more procedures/operations. He was doing fairly well until, in October, he developed some worsening edema and a significant increase in SOB. He went to the ER at [facility] and had a CXR showing pleural effusions and mild pulmonary edema and BNP was markedly elevated, Cr was 1.8. He was given IV lasix and felt better. His chlorthalidone was stopped and he was started on torsemide 20mg per day. He has mild edema in legs now but breathing is improved. He does also have COPD and he knows this contributes to his dyspnea. He denies orthopnea or PND. His Cr has been higher since starting torsemide but volume status improved. His BP is reasonably controlled. He was instructed by PCP to stop Plavix but he has not done this and plans to talk to Dr. Vergara about this again as he is worried to do this with his vascular disease. He denies NSAID use. He has significant LUTS with BPH (dribbles urin, gets up 5 times per night) and flomax was increased earlier this year. He drinks a lot of water. He has tried to cut down on salt. 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 Chronic kidney disease stage 4 (HCC) ??? Type 2 diabetes mellitus with diabetic chronic kidney disease (HCC) ??? Hypertrophy (benign) of prostate with urinary obstruction and other lower urinary tract symptoms (LUTS) ??? Abdominal aortic aneurysm without rupture (HCC) ??? Morbid obesity (HCC) ??? Cardiac arrhythmia ??? Chronic diastolic heart failure (HCC) ??? Emphysematous bronchitis (HCC) ??? History of operative procedure on knee ??? Hyperlipidemia ??? Multiple premature ventricular complexes ??? Aortic valve stenosis ??? Osteoarthritis of knee ??? Recurrent depression ??? Vascular disorder of lower extremity (HCC) ??? Hypertensive chronic kidney disease with stage 1 through stage 4 chronic kidney disease, or unspecified chronic kidney disease Review of Systems A complete comprehensive review of systems was completed and is negative beside what is stated in the HPI above Taking? Provider LT acetaminophen (TYLENOL) 500 MG tablet Deena Raygoza MD Take 1,000 mg by mouth in the morning and 1,000 mg in the evening. albuterol HFA (PROVENTIL HFA;VENTOLIN HFA) 108 (90 Base) MCG/ACT inhaler Deena Raygoza MD Inhale 1-2 Puffs by mouth every 4 hours if needed for Shortness of Breath 2nd choice or Wheezing 1st choice. aspirin (ST MALACHI) 81 MG EC tablet Deena Raygoza MD Take 81 mg by mouth in the morning. clopidogrel (PLAVIX) 75 MG tablet Deena Raygoza MD Take 75 mg by mouth in the morning. ipratropium-albuterol (DUO-NEB) 0.5-2.5 mg/3 mL nebulizer solution Deena Raygoza MD INHALE THREE MLS BY MOUTH VIA NEBULIZER FOUR TIMES A DAY NEEDED losartan (COZAAR) 50 MG tablet Deena Raygoza MD Take 50 mg by mouth in the morning. metoprolol succinate XL (TOPROL XL) 25 MG 24 hr tablet Deena Raygoza MD Take 25 mg by mouth in the morning. pravastatin (PRAVACHOL) 80 MG tablet Deena Raygoza MD Take 80 mg by mouth in the morning. tamsulosin (FLOMAX) 0.4 MG 24 hr capsule Deena Raygoza MD Take 0.8 mg by mouth in the morning. torsemide (DEMADEX) 20 MG tablet Deena Raygoza MD Take 1 tablet by mouth every morning triamcinolone (KENALOG) 0.5 % cream Deena Raygoza MD Apply topically to affected area(s) two times daily. Use for up to 2 weeks and take a week off. Umeclidinium Duarte 62.5 MCG/ACT aerosol powder Deena Raygoza MD Inhale 1 puff in the morning. Allergies Allergen Reactions ??? Metformin Diarrhea Physical Exam BP 136/70 (BP Location: Right upper arm, Patient Position: Sitting, BP Cuff Size: Adult) Pulse 80 Ht 5' 4 (1.626 m) Wt 130 lb (59 kg) SpO2 95% BMI 22.31 kg/m?? CONSTITUTIONAL: obese, pleasant gentleman in no distress EYES: pupils equal, sclerae not icteric. RESPIRATORY: Clear to auscultation bilaterally, nl effort CARDIOVASCULAR: Regular rate and rhythm, ++ systolic murmur. 1+ leg edema b/l below knees only GASTROINTESTINAL: bowel sounds active, not distended PSYCHIATRIC: Alert and pleasant INTEGUMENT: No visible rash on exposed skin MUSCULOSKELETAL: four limbs, no contractures Chemistry and Bone Mineral Lab Units 12/05/23 0000 05/27/23 0000 08/02/22 0000 SODIUM mEq/L 136 138 139 POTASSIUM mEq/L 5.3* 4.8 4.9 CHLORIDE 101 104 103 CO2 mmol/L 20* 22 20* CALCIUM mg/dL 8.4* 8.9 9.1 GLUCOSE mg/dL 96 81 126* BUN mg/dL 58* 38* 31* CREATININE mg/dL 2.85* 1.87* 1.42* EGFR 21* 34* 48* CBC and Iron Studies Lab Units 05/24/23 0000 WBC AUTO K/uL 9.2 HEMATOCRIT % 40.3 HEMOGLOBIN g/dL 13.5 MCV 95 PLATELETS AUTO 184 No lab exists for component: GLUCOSEUR, BILIRUBINUR, SPECGRAV, RBCUR, LEUKOCYTESUR, NITRITE Imaging: CT abd/pelvis 10/2017: IMPRESSION: 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 Proximal anastomosis of the abdominal aorta is unchanged at 50 x 47 mm on both the 07/09/2016 study (with contrast) and today's noncontrast study when directly remeasured. Please see the separate radiology dictation for noncardiovascular findings. TTE 12/2018: Final Impressions: 1. Technically limited exam. 2. Normal left ventricular size, moderately increased wall thickness, normal global systolic function, calculated EF of 63 %. 3. Right ventricular cavity size is normal, global systolic RV function is normal. 4. The aortic valve is trileaflet and sclerotic, moderate stenosis and mild regurgitation. The aortic valve peak velocity is 3.11 m/s, the peak gradient is 38.6 mmHg, and the mean gradient is 22.9 mmHg. The aortic valve area is 1.38 cm?. 5. The mitral valve is sclerotic, mild mitral regurgitation. 6. Grade 1 pattern of LV diastolic filling. Comparison Compared to prior exam report of 06/17/17: - Aortic stenosis has increased. Assessment and Plan: CKD Stage 4 - worsening Progressive CKD with more rapid worsening in 2023, Cr higher since needing to start torsemide but this may be a result of lower renal function as well. I suspect CKD is 2/2 vascular disease, HTN, DM,and heart failure with progressive aortic stenosis as well. However, he also has significant LUTS and I will rule out bladder outlet obstruction. And given rapid rise in Cr this year, will do basic work-up. However, he does not want to repeat cardiac imaging or see vascular or cardiology at this time as he does not want any further procedures or operations given his age and wishes. He would also not pursue dialysis if it became necessary. -Work-up: UA, urine protein, rd panel, Hgb, PTH, and renal ultrasound -Continue current diuretic (torsemide 20mg) and ARB (losartan 50mg) -He is already avoiding NSAID's and will continue to do so -I may consider SGLT2i at next visit. I hope to see Cr level off and perhaps improve with stable diuretic dose now and adequate BP, but will re-assess at f/u visit in about 6 weeks after work-up completed and after repeat labs -We discussed low salt diet as well today Type 2 DM with diabetic CKD A1C at goal. He is diet controlled at this time. Continue losartan HTN with hypertensive CKD BP reasonably controlled at this time. I will not escalate therapy for now. Volume status could still improve. -Continue current medications -Monitor BP HFpEF, chronic Aortic stenosis, worsened to moderate on last echo, increased symptoms now PVD with hx of popliteal aneurysm s/p repair AAA s/p open repair in 2008 He does not follow with vascular anymore and does not follow with cardiology. As discussed before, he does not intend to and wishes no further operations and procedures. He will remain on same dose of diuretic at this time. LUTS with BPH See above, will do u/s. Continue flomax COPD (emphysematous bronchitis) Symptoms stable at this time. Note likely contributes to chronic dyspnea. Continue inhalers per PCP. Morbid Obesity - BMI 40 Would benefit from weight loss. This is not a priority for him at this time. Return in about 6 weeks (around 01/27/2024) for follow-up with . Dinesh Fermin MD [facility] * Dinesh Fermin MD - 12/16/2023 9:30 AM CDT Luanne, Please notify patient that I have [...] on file documented as of this encounter Procedures Procedure Name Priority Date/Time Associated Diagnosis Comments US RENAL COMPLETE Routine 12/20/2023 3:4 3 PM CDT Chronic kidney disease stage 4 (HCC) Benign prostatic hyperplasia with lower urinary tract symptom PROTEIN / CREATININE RATIO, URINE Routine 12/20/2023 6:55 AM CDT Chronic kidney disease stage 4 (HCC) URINE ALBUMIN / CREATININE RATIO Routine 12/20/2023 6:55 AM CDT Chronic kidney disease stage 4 (HCC) URINALYSIS WITH MICROSCOPIC Routine 12/20/2023 6:55 AM CDT Chronic kidney disease stage 4 (HCC) CBC Routine 12/20/2023 6:55 AM CDT Chronic kidney disease stage 4 (HCC) PTH, INTACT Routine 12/20/2023 6:55 AM CDT Chronic kidney disease stage 4 (HCC) RENAL FUNCTION PANEL Routine 12/20/2023 6:55 AM CDT Chronic kidney disease stage 4 (HCC) documented in this encounter Results * Ultrasound renal complete (12/20/2023 3:43 PM CDT) Anatomical Region Laterality Modality Body Ultrasound us Dinesh Fermin MD IMG US PROCEDURES Final Resul t * Urinalysis with microscopic (12/20/2023 6:55 AM CDT) Color, Urine YELLOW YELLOW See ord er comments Appearance Urine CLEAR CLEAR See order comments Specific [place], UA 1.010 1.001 - 1.035 See order [...] Comment Performing Organization Information: ?Site ID: ?Name: [facility] ?Address: [address] [place] [phone] ?Director: Gasper Aldridge Dinesh Fermin MD LAB URINE ORDERABLES Final Re sult Performing Organization Address [facility] de Phone Number [facility] See order comments [place] [address] * (ABNORMAL) Urine Protein / creatinine ratio [...] Comment Performing Organization Information: ?Site ID: ?Name: [facility] ?Address: [address] [place] [phone] ?Director: Gasper Aldridge Dinesh Fermin MD LAB URINE ORDERABLES Final [facility] Performing Organization Address [facility] de Phone Number [facility] See order comments [place] [address] * Urine Albumin / Creatinine Ratio (12/20/2023 [...] Performing Organization Information: ?Site ID: [id number] ?Name: [facility] ?Address: [address] [place] [address] [address] ?Director: Gasper Aldridge us Dinesh Fermin MD LAB URINE ORDERABLES Final Re sult [facility] See order comments [place] [address] * (ABNORMAL) PTH, intact (12/20/2023 6:55 AM [...] Performing Organization Information: ?Site ID: [id number] ?Name: [facility] ?Address: [address] [place], [place] [address] [address] ?Director: Gasper Aldridge Dinesh Fermin MD LAB BLOOD ORDERABLES Final Re sult Performing Organization Address [facility] de Phone Number [facility] See order comments [place] [address] * (ABNORMAL) CBC (12/20/2023 6:55 AM CDT) [...] Performing Organization Information: ?Site ID: [id number] ?Name: [facility] ?Address: [address] [place], [place] [address] [address] ?Director: Gasper Aldridge Dinesh Fermin MD LAB BLOOD ORDERABLES Final Re sult Performing Organization Address [facility] Co de Phone Number [facility] See order comments [place] [address] * (ABNORMAL) Renal function panel (12/20/2023 6:55 [...] Performing Organization Information: ?Site ID: [id number] ?Name: [facility] ?Address: [address] [place] [phone] ?Director: Gasper Aldridge us Dinesh Fermin MD LAB BLOOD ORDERABLES Final Re sult [facility] See order comments [place] [address] documented in this encounter Visit Diagnoses Diagnosis Chronic kidney disease stage 4 (HCC)- Primary Benign prostatic hyperplasia with lower urinary tract symptom Vascular disorder of lower extremity (HCC) Abdominal aortic aneurysm without rupture, not otherwise specified (HCC) Hypertensive chronic kidney disease with stage 1 through stage 4 chronic kidney disease, or unspecified chronic kidney disease 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
--- OUTSIDE RECORDS SUMMARY | 2024-01-30 00:42 | XMS_ITS | Encounter Summary ---
Author Organization [facility] Address [address] [facility] [address] [place] [address] Care Team Providers Care Boring Mill Set Up Operator Name Role Phone Rodney Vergara MD Primary Care Provider [phone] Encounter Details Date Type Department Care Team (Late st Contact Info) Description 12/02/2023 Documentation Only [facility] [address] [place] [address] No, Pcp Social History Tobacco Use [...] Procedure Name Priority Date/Time Associated Diagnosis Comments BASIC METABOLIC PANEL (BMP) (EXTERNAL LAB ENTRY) Routine 12/05/2023 BASIC METABOLIC PANEL (BMP) (EXTERNAL LAB ENTRY) Routine 05/27/2023 CBC Routine 05/24/2023 BASIC METABOLIC PANEL (BMP) (EXTERNAL LAB ENTRY) Routine 08/02/2022 documented in this encounter Results * (ABNORMAL) Basic Metabolic Panel (BMP) (12/05/2023) Sodium 136 mEq/L [facility] Potassium 5.3(H) mEq/L [facility] Chloride 101 [facility] Carbon Dioxide 20(L) mmol/L [facility] Calcium 8.4(L) mg/dL [facility] BUN 58(H) mg/dL [facility] Creatinine 2.85(H) mg/dL [facility] Glucose 96 mg/dL [facility] eGFR 21(L) [facility] Anion Gap 15 [facility] 12/05/2023 Historical Provider MD LAB BLOOD ORDERABLES Pilar l Result Performing Organization Address [facility] Co de Phone Number [facility] * (ABNORMAL) Basic Metabolic Panel (BMP) (05/27/2023) Sodium 138 mEq/L [facility] Potassium 4.8 mEq/L [facility] Chloride 104 [facility] Carbon Dioxide 22 mmol/L [facility] Calcium 8.9 mg/dL [facility] BUN 38(H) mg/dL [facility] Creatinine 1.87(H) mg/dL [facility] Glucose 81 mg/dL [facility] eGFR 34(L) [facility] Comment:As of 2021, eG FR is calculated by the CKD-EPI creatinine equation without race adjustment. eGFR can be influenced by muscle mass, exercise, and diet. The reported eGFR is an estimation only and is only applicable if the renal function is stable. Anion Gap 12 [facility] 05/27/2023 Historical Provider MD LAB BLOOD ORDERABLES Pilar l Result [facility] * (ABNORMAL) CBC (05/24/2023) WBC 9.2 K/uL [facility] Red Blood Cell Count 4.23(L) [facility] Hemoglobin 13.5 g/dL [facility] Hematocrit 40.3 % [facility] MCV 95 [facility] MCH 31.9 [facility] MCHC 33.5 [facility] RDW 12.7 [facility] Platelet Count 184 [facility] MPV 9.6 [facility] Blood (Blood, Venous) 05/24/2023 Historical Provider LAB BLOOD ORDERABLES Pilar l Result [facility] * (ABNORMAL) Basic Metabolic Panel (BMP) (08/02/2022) Sodium 139 mEq/L [facility] Potassium 4.9 mEq/L [facility] Chloride 103 [facility] Carbon Dioxide 20(L) mmol/L [facility] Calcium 9.1 mg/dL [facility] BUN 31(H) mg/dL [facility] Creatinine 1.42(H) mg/dL [facility] Glucose 126(H) mg/dL [facility] eGFR 48(L) [facility] Comment:As of 2021, eG FR is calculated by the CKD-EPI creatinine equation without race adjustment. eGFR can be influenced by muscle mass, exercise, and diet. The reported eGFR is an estimation only and is only applicable if the renal function is stable. Anion Gap 16 [facility] 08/02/2022 Historical Provider LAB BLOOD ORDERABLES Pilar l Result [facility] documented in this encounter Visit Diagnoses Not on filedocumented in this encounter Care Teams Boring Mill Set Up Operator Relationship Specialty Start Date End Date Rodney Vergara MD [address] [place] [address] PCP - General Family Medicine 12/02/23 documented as of this encounter
--- OUTSIDE RECORDS SUMMARY | 2024-01-30 00:42 | XMS_ITS | Encounter Summary ---
Author Organization [facility] Address [address] [place] [address] Care Team Providers Care Shovel Loader Operator Name Role Phone Rodney Vergara MD Primary Care Provider [phone] Encounter Details Date Type Department Care Team (Late st Contact Info) Description 12/28/2023 Office Communication [facility] [address] [place] [address] Cesar Rocha [address] [place] [address] Social History Tobacco Use Types Packs/Day Years [...] encounter Miscellaneous Notes * Telephone Encounter - Dinesh Fermin MD - 12/28/2023 3:50 PM CDT None needed, will determine next labs when I see him. Thanks * Telephone Encounter - Cesar Rocha - 12/28/2023 1:54 PM CDT Patient RTC with you 01/29. Please order PVL if needed. documented in this encounter Plan of Treatment Not on file documented as of this encounter Visit Diagnoses Not on filedocumented in this encounter Care Teams Shovel Loader Operator Relationship Specialty Start Date End Date Rodney Vergara MD [address] [place] [address] PCP - General Family Medicine 12/02/23 documented as of this encounter
--- OUTSIDE RECORDS SUMMARY | 2024-01-30 00:42 | XMS_ITS | Encounter Summary ---
Author Organization [facility] Address [address] [place] [address] Care Team Providers Care Pe Electrical Engineer Name Role Phone Rodney Vergara MD Primary Care Provider [phone] Encounter Details Date Type Department Care Team (Late st Contact Info) Description 12/02/2023 Office Communication [facility] [address] [place] [address] Rodney Vergara MD [address] [place] [address] Social History Tobacco Use Types Packs/Day Years Used Date Smoking Tobacco: Never Assessed Sex and Gender Information Value Date Recorded Sex Assigned at Not on file Legal Sex Male 2:31 PM EDT Gender Identity Not on file Sexual Orientation Not on file documented as of this encounter Miscellaneous Notes * Telephone Encounter - Letty Dugan - 12/02/2023 1:46 PM CDT Left message for the patient in regards to scheduling an [facility] consultation perthe referral received from Rodney Vergara. documented in this encounter Plan of Treatment Not on file documented as of this encounter Visit Diagnoses Not on filedocumented in this encounter Care Teams Pe Electrical Engineer Relationship Specialty Start Date End Date Rodney Vergara MD [address] [place] [address] PCP - General Family Medicine 12/02/23 documented as of this encounter
== END 2024-01-30 01:29 | disposition home or self-care (01) ==
PROVIDERS: Emergency Provider Family Medicine; PCP Family Medicine
DX: S63.502A Unspecified sprain of left wrist, initial encounter (principal); I10 Essential (primary) hypertension; I35.0 Nonrheumatic aortic (valve) stenosis
CPT/HCPCS: 36415; 70450; 73110; 80048; 84132; 84484; 85025; 86140; 93005; 94761; 99284; 99285; A9270

== ENCOUNTER 2024-04-05 00:41 | Inpatient (IN) | payer MEDICARE, BC, SELFPAY ==
[2024-04-05] VITALS (16 sets, daily range): BP systolic 131–183; BP diastolic 84–117; PULSE 89–110; RESP 22–32; TEMP 36.7–38.2; O2SAT 88–97; BMI 36.6; BMI 35.0
--- OUTSIDE RECORDS SUMMARY | 2024-04-05 00:43 | XMS_ITS | Clinical Summary ---
Author Organization [facility] Address [place], [place] [address] Care Team Providers [employer] Salesperson Name Role Phone Rodney Vergara MD Primary Care Provider [phone] Allergies Active Allergy Reactions Criticality Noted Date Comments Metformin Diarrhea Medium 02/02/2021 Medications acetaminophen (TYLENOL EXTRA STRGTH) 500 mg tablet Take 1,000 mg by mouth every 6 hours if needed for Pain. Max acetaminophen dose: 4000mg in 24 hrs. Takes @@ 0500 & 1300 Active blood-glucose meterIndications: Controlled type 2 diabetes mellitus without complication, without long-term current use of insulin (HC) Dispense meter, test strips, lancets covered by pt ins. E11.9 NIDDM type II - Test 1 time/day 1 Device 019 Active NebulizerIndicati ons:COPD with chronic bronchitis (HC) Nebulizer with assessories. Frequency of use: 4x daily; Medication: duoneb Length of need: 99 months 1 Device 019 Active pravastatin (PRAVACHOL) 80 mg tabletIndications :Controlled type 2 diabetes mellitus without complication, without long-term current use of insulin (HC) Take 1 Tablet (80 mg) by mouth at bedtime. 90 Tablet 3 024 Active blood sugar diagnostic (Blood Glucose Test) stripIndications: Controlled type 2 diabetes mellitus without complication, without long-term current use of insulin (HC) Dispense brand covered by insurance. E11.9 NIDDM type II - Test 2 times/day 100 Each 3 Active tamsulosin (FLOMAX) 0.4 mg capsuleIndication s:Urinary retention Take 2 Capsules (0.8 mg) by mouth once daily after a meal. 180 Capsule 3 Active apixaban (ELIQUIS) 2.5 mg tabletIndications :prevent thromboembolism in chronic atrial fibrillation Take 1 Tablet (2.5 mg) by mouth two times daily. 60 Tablet 2 Active metoprolol succinate (TOPROL XL) 50 mg sustained-release tabletIndications :Chronic diastolic CHF (congestive heart failure) (HC),Paroxysmal atrial fibrillation (HC) Take 1 Tablet (50 mg) by mouth once daily. 30 Tablet 2 Active triamcinolone 0.5 % creamIndications: Rash Apply topically to affected area(s) two times daily. Use for up to 2 weeks for drug reaction rash. Do not apply to the face. 60 g 2 Active umeclidinium (Incruse Ellipta) 62.5 mcg/actuation inhalerIndication s:COPD with chronic bronchitis (HC) INHALE ONE PUFF BY MOUTH EVERY DAY 30 Each 4 024 Active torsemide (DEMADEX) 10 mg tabletIndications :Chronic diastolic CHF (congestive heart failure) (HC) Take 1 tablet daily in the morning. Take a second tablet daily when your weight is above 225 pounds. 135 Tablet 3 Active albuterol-ipratro pium (DUONEB) (2.5-0.5 mg) in 3 mL NEBULIZATION solutionIndicatio ns:COPD with chronic bronchitis (HC) INHALE THREE MLS BY MOUTH VIA NEBULIZER FOUR TIMES A DAY NEEDED 375 mL 5 024 Active albuterol HFA (PRO-AIR; VENTOLIN; PROVENTIL) 90 mcg/actuation inhalerIndication s:COPD with chronic bronchitis (HC) Inhale 1-2 Puffs by mouth every 4 hours if needed for Shortness of Breath 2nd choice or Wheezing 1st choice. 1 Each 5 024 Active albuterol-ipratro pium (DUONEB) (2.5-0.5 mg) in 3 mL NEBULIZATION solutionIndicatio ns:COPD with chronic bronchitis (HC) INHALE THREE MLS BY MOUTH VIA NEBULIZER FOUR TIMES A DAY NEEDED 375 mL 5 023 2023 Discontinued(R eorder (E-cancel not sent)) umeclidinium (INCRUSE ELLIPTA) 62.5 mcg/actuation inhalerIndication s:COPD with chronic bronchitis (HC) Inhale 1 Puff by mouth once daily. Discard inhaler 6 weeks after opening or when the counter reads '0' (after all blisters have been used), whichever comes first.Wait until they call for this. 30 Each 10 024 2023 Discontinued albuterol HFA (PRO-AIR; VENTOLIN; PROVENTIL) 90 mcg/actuation inhalerIndication s:COPD with chronic bronchitis (HC) Inhale 1-2 Puffs by mouth every 4 hours if needed for Shortness of Breath 2nd choice or Wheezing 1st choice. 1 Each 5 024 2023 Discontinued(R eorder (E-cancel not sent)) torsemide (DEMADEX) 10 mg tabletIndications :Chronic diastolic CHF (congestive heart failure) (HC) Take 1 tablet daily in the morning. 30 Tablet 2 024 2023 Discontinued(R eorder (E-cancel not sent)) Active Problems Problem Noted Date Diagnosed Date Drug reaction 01/31/2024 Overview (01/31/2024): Developed a morbilloform rash due to Vancomycin. NEGRO (acute kidney injury) 01/23/2024 Stage 4 [...] Encounters Date Type Department Care Team Description 03/27/2024 8:15 AM DIPLOMA MEDICAL ASSISTANT Phone Office Visit [facility] [place] [address] Carley Cartwright PA covid exposure 03/27/2024 Travel 03/26/2024 Telephone [facility] [place] [address] Rodney Vergara MD Questions (COVID-19) 03/20/2024 7:30 AM DIPLOMA MEDICAL ASSISTANT Office Visit [facility] [place] [address] Rodney Vergara MD Diabetes (routine); Breathing Problem (Has been short of breath) 03/20/2024 Travel 03/16/2024 [facility]ill [facility] [place] [address] Rodney Vergara MD Refill Request (Incruse Ellipta) 03/14/2024 7:30 AM DIPLOMA MEDICAL ASSISTANT Orders Only [address] [place] [address] Lab, [place] Lab 03/14/2024 Travel 03/13/2024 Telephone [facility] [place] [address] Rodney Vergara MD Lab (LAB ORDERS NEEDED) 03/12/2024 Telephone [facility] - [address] [place] [id number] Elma Zayas PA Weight 02/28/2024 11:20 AM DIPLOMA MEDICAL ASSISTANT Office Visit [facility] [address] [place] [address] Case, MARLEY Keenan Follow Up ([facility] ([address] DOESN'T WORK FOR [facility]) LABS DONE SAME DAY PRIOR./DX: Acute diastolic CHF (congestive heart failure) (HC) [I50.31] //Pt states he has started to feel a lot better over the past month or so. Pt reports fluctuating BPs.) 02/28/2024 10:40 AM DIPLOMA MEDICAL ASSISTANT Orders Only [facility] [address] [facility] [address] [place] [address] Lab 02/28/2024 Travel 02/15/2024 8:15 AM DIPLOMA MEDICAL ASSISTANT Orders Only [facility] [address] [place] [address] Lab, [place] Lab 02/15/2024 Travel 02/02/2024 Telephone [facility] [address] [facility] [place] [address] Rodney Vergara MD Referral (Home Care Referral) 01/31/2024 3:35 PM DIPLOMA MEDICAL ASSISTANT Office Visit [facility] [address] [place] [address] Rodney Vergara MD Hospital F/U (Congestive heart failure - [facility] 01/25 discharge) 01/31/2024 Travel 01/29/2024 Orders Only [facility] Scanner 1 scan: (1-Ord) [facility], HEAD/BRAIN WITH CONTRAST, 01/29/2024 01/29/2024 Orders Only [facility] Scanner 1 scan: (1-Ord) [place], XR WRIST LT MIN 3V, 01/29/2024 01/29/2024 Nurse Triage [facility] [address] [place] [address] Rodney Vergara MD Arm Numbness 01/27/2024 Patient Outreach [facility] [address] [place] [address] Nayeli Han RN Primary RN Care Management; Hospital F/U (Lace 55) 01/22/2024 5:01 PM CDT - 01/26/2024 12:20 PM CDT Hospital Encounter [facility] [address] [place] [address] [facility] [place] [facility] [place], MD Makeda Calderón Bradley Thomas, MD Acute diastolic CHF (congestive heart failure) (HC) (Primary Dx); Chronic diastolic CHF (congestive heart failure) (HC); Paroxysmal atrial fibrillation (HC); Rash; Stage 4 chronic kidney disease (HC); Atrial fibrillation with RVR (HC) Discharge Disposition: Home Health 01/22/2024 Orders Only [facility] Scanner 1 scan: (1-Ord) [place], CHEST 1V PORTABLE, 01/22/2024 01/22/2024 Travel 01/22/[address] [place] [address] Kvng Howell MD 01/20/2024 10:00 AM CDT Ancillary Procedure [facility] [address] [place] [address] 01/20/2024 Travel 01/19/2024 Orders Only [facility] Scanner 1 scan: (1-Ord) [facility], CHEST ABDOMEN PELV WITHOUT CONTRAST, 01/19/2024 from Last 3 Months Immunizations Name Administration Dates Next Due COVID-19 vaccine (Pfizer-Bio NTech 30mcg/0.3mL) 12YO+ BIVALENT PF, MDV 02/03/2022 COVID-19 vaccine (Pfizer-Bio NTech 30mcg/0.3mL) 12YO+ JESICA-SUCROSE PF, MDV 08/06/2021 COVID-19 vaccine (SMATOOS-Bio NTech 30mcg/0.3mL) PF, MDV 01/01/2021,05/23/2020,05/02/2020 Influenza, High-dose [...] drink = 0.6 oz pur e alcohol) [facility] Utilities Answer Date Recorded Do you have trouble paying f or utilities (for example, heat, electricity, water, phone)? Yes 01/22/2024 PHQ-2 Answer Date Recorded PHQ-2 TOTAL SCORE [...] is your housing situation today? 1 01/22/2024 Interpersonal Safety Answer Date Record ed Are you being hit, kicked, p ushed or yelled at (see row info)? No 01/22/2024 Interpersonal Safety Abuse 12 - 18 Not on file 01/22/2024 Interpersonal Safety Ambulatory Vulnerability No t on file 01/22/2024 Sex and Gender Information Value Date Recorded Sex Assigned at Not on file Legal Sex Male 6:30 AM DIPLOMA MEDICAL ASSISTANT Gender Identity Not on file Sexual Orientation Not on file Occupation Industry Job Start Date Job End Date Retired Not on file Not on file Not on file Obstetrics History Last Filed Vital Signs Vital Sign Reading Time Taken Comments Blood Pressure 148/80 03/20/2024 8:10 AM DIPLOMA MEDICAL ASSISTANT Pulse 93 03/20/2024 7:36 AM DIPLOMA MEDICAL ASSISTANT Temperature 36.3 C (97.3 F) 03/20/2024 7:36 AM DIPLOMA MEDICAL ASSISTANT Respiratory Rate 20 01/26/2024 8:15 AM CDT Oxygen Saturation 93% 03/20/2024 7:36 AM DIPLOMA MEDICAL ASSISTANT Inhaled Oxygen Concentration - - Weight 99.9 kg (220 lb 3.2 oz) 03/20/2024 7:36 A M DIPLOMA MEDICAL ASSISTANT Height 161.3 cm (5' 3.5) 02/28/2024 11:21 AM CS T Body Mass Index 38.39 02/28/2024 11:21 AM DIPLOMA MEDICAL ASSISTANT Plan of Treatment Upcoming Encounters Date Type Department Care Team (Late st Contact Info) Description 04/10/2024 2:30 PM DIPLOMA MEDICAL ASSISTANT Office Visit [facility] [address] [facility] [address] Da Baker MD [address] [facility] [address] [place] [address] 09/12/2024 7:30 AM CDT Orders Only [facility] [address] [place] [address] Kwaku Mckeon 09/18/2024 7:30 AM CDT Office Visit [facility] [address] [facility] [address] Rodney Vergara MD [address] [place] [address] Health Maintenance Due Date Last Done Comments [...] wt on same day) for age 18+ 02/27/2025 02/28/2024, 12/02/2023, 09/23/2023, Additional history exists Tdap Completed 04/19/2012 Pneumococcal series for age 50+ Completed 8, 10/18/2008 Goals Goal Patient Goal Type Associated Problems Recent Progress Patient-Stated? Author BLOOD PRESSURE - MAINTAINS BP less than 140/90 Blood Pressure Alex Levy MD Medical Devices Implanted Type Area Straw Boss Device Identifier Shelf Expiration Date Model / Serial / Lot Graft Knitted [id number] Stra Eulalia [id number] [employer] - [id number] Implanted:Qty: 1 on 12/30/2008 at [facility] N/A: [employer] [id number]# / [id number] / [place] [employer] [id number] - [id number] Implanted:Qty: 1 on 12/30/2008 at [facility] Inari [id number]# / / Cmnt Bone 40g Simplex P Atb Mvtobramycin - [id number] Implanted:Qty: 1 on 06/21/2017 by Joe Savage MD at [facility] Right: Knee [employer] 11/25/2018 [id number] # / / [id number] Cmnt Bone 40g Simplex P Atb Mvtobramycin - [id number] Implanted:Qty: 1 on 06/21/2017 by Joe Savage MD at [facility] Right: Knee [employer] 11/25/2018 [id number] # / / [id number] Fem Rt Sz6 Journey Ii Bcs Oxin - [id number] Implanted:Qty: 1 on 06/21/2017 by Joe Savage MD at [facility] Right: Knee [employer] 02/12/2027 [id number]# / / [id number] Baseplate Tib Rt Sz5 Caterers Helper Journey - [id number] Implanted:Qty: 1 on 06/21/2017 by Joe Savage MD at [facility] Right: Knee [employer] 12/04/2026 [id number]# / / [id number] Patella Sz35 Journey Rnd Non Pors - [id number] Implanted:Qty: 1 on 06/21/2017 by Joe Savage MD at [facility] Right: Knee [employer] 02/12/2027 [id number]# / / [id number] Insert Knee Rt Sz5-6 9mm Journey Ii Bcs Bi Cruc Stbz - [id number] Implanted:Qty: 1 on 06/21/2017 by Joe Savage MD at [facility] Right: Knee [employer] 12/27/2026 [id number]# / / [id number] Procedures Procedure Name Priority Date/Time Associated Diagnosis Comments BASIC METABOLIC PANEL Routine 03/14/2024 7:18 AM DIPLOMA MEDICAL ASSISTANT Controlled type 2 diabetes mellitus without complication, without long-term current use of insulin (HC) LIPID PANEL W REFLEX MEASURED LDL Routine 03/14/2024 7:18 AM DIPLOMA MEDICAL ASSISTANT Controlled type 2 diabetes mellitus without complication, without long-term current use of insulin (HC) HEMOGLOBIN A1C MONITORING (POCT) Routine 03/14/2024 7:17 AM DIPLOMA MEDICAL ASSISTANT Controlled type 2 diabetes mellitus without complication, without long-term current use of insulin (HC) PRO-BNP Routine 02/28/2024 10:30 AM DIPLOMA MEDICAL ASSISTANT Chronic diastolic CHF (congestive heart failure) (HC) BASIC METABOLIC PANEL Routine 02/28/2024 10:26 AM DIPLOMA MEDICAL ASSISTANT Chronic diastolic CHF (congestive heart failure) (HC) SCAN-CT INTERPRETATION 12:00 AM CDT SCAN-RADIOLOGY REPORT 01/29/2024 12:00 AM CDT CBC WITH AUTO DIFFERENTIAL Early [...] Aortic stenosis SCAN-CT INTERPRETATION 12:00 AM CDT from Last 3 Months Results * (ABNORMAL) LIPID PANEL W REFLEX MEASURED LDL (03/14/2024 7:18 AM DIPLOMA MEDICAL ASSISTANT) CHOLESTEROL, TOTAL 118 <200 mg/dL [facility] HDL CHOLESTEROL 31(L) > OR = 40 mg/dL [facility] TRIGLYCERIDES 177(H) <150 mg/dL [facility] LDL-CHOLESTEROL 62 mg/dL (calc) [facility] Comment: Reference range: <100 Desirable range <100 mg/dL for primary prevention; <70 mg/dL for patients with CHD or diabetic patients with > or = 2 CHD risk factors. LDL-C is now calculated using the Grant calculation, which is a validated novel method providing better accuracy than the Friedewald equation in the estimation of LDL-C. Vinod SS et al. NELIDA. 2013;310(19): 6585-0932 (http://education.1o1Media/faq/OUW862) CHOL/HDLC RATIO 3.8 <5.0 (calc) [facility] NON HDL CHOLESTEROL 87 <130 mg/dL (calc) [facility] Comment: For patients with diabetes plus 1 major ASCVD risk factor, treating to a non-HDL-C goal of <100 mg/dL (LDL-C of <70 mg/dL) is considered a therapeutic option. Blood BLOOD SPECIMEN / Unknown 03/14/2024 7:18 AM DIPLOMA MEDICAL ASSISTANT 03/14/2024 7:19 AM DIPLOMA MEDICAL ASSISTANT us Rodney Vergara MD CHEMISTRY Final Resu lt [employer] [facility] [address] [place] [address], [facility] [address] [place] [address] * (ABNORMAL) BASIC METABOLIC PANEL (03/14/2024 7:18 AM DIPLOMA MEDICAL ASSISTANT) Only the most recent of5 resultswithin the time period is included. Pathologist [facility] GLUCOSE 108(H) 65 - 99 mg/dL [facility] Comment: Fasting reference interval For someone without known diabetes, a glucose value between 100 and 125 mg/dL is consistent with prediabetes and should be confirmed with a follow-up test. UREA NITROGEN (BUN) 28(H) 7 - 25 mg/dL [facility] CREATININE 2.00(H) 0.70 - 1.22 mg/dL [facility] EGFR 32(L) > OR = 60 mL/min/1.7 3m2 [facility] BUN/CREATININE RATIO 14 6 - 22 (calc) [facility] SODIUM 137 135 - 146 mmol/L [facility] POTASSIUM 4.1 3.5 - 5.3 mmol/L [facility] CHLORIDE 100 98 - 110 mmol/L [facility] CARBON DIOXIDE 24 20 - 32 mmol/L [facility] ELECTROLYTE BALANCE 13 7 - 17 mmol/L (calc) [facility] CALCIUM 8.6 8.6 - 10.3 mg/dL [facility] Blood BLOOD SPECIMEN / Unknown 03/14/2024 7:18 AM DIPLOMA MEDICAL ASSISTANT 03/14/2024 7:19 AM DIPLOMA MEDICAL ASSISTANT us Rodney Vergara MD CHEMISTRY Final Resu lt [employer] [facility] [address] [place] [address], [email or web address] [address] [place] [address] * HEMOGLOBIN A1C MONITORING (POCT) (03/14/2024 7:17 AM DIPLOMA MEDICAL ASSISTANT) Pathologist [facility] POC HEMOGLOBIN A1C 5.8 <6.0 % OF TOTAL HGB [facility] Comment: Any point of care results exhibiting inconsistency with the patient's clinical status should be repeated using a different testing method. Blood BLOOD SPECIMEN / Unknown 03/14/2024 7:17 AM DIPLOMA MEDICAL ASSISTANT 03/14/2024 7:17 AM DIPLOMA MEDICAL ASSISTANT Rodney Vergara MD CHEMISTRY Final Resu lt [facility] [address] [place] [address], [facility] [address] [place] [address] * (ABNORMAL) PRO-BNP (02/28/2024 10:30 AM DIPLOMA MEDICAL ASSISTANT) Only the most recent of2 resultswithin the time period is included. [facility] PRO-BNP 2,439(H) <450 pg/mL 02/28/2024 5:19 PM DIPLOMA MEDICAL ASSISTANT [facility] Blood BLOOD SPECIMEN / Unknown [facility] / Unknown 02/28/2024 10:30 AM DIPLOMA MEDICAL ASSISTANT 02/28/2024 11:08 AM DIPLOMA MEDICAL ASSISTANT Narrative [facility] - 02/28/2024 5:19 PM DIPLOMA MEDICAL ASSISTANT The following cut-points have been suggested for the use of proBNP for the diagnostic evaluation of heart failure (HF) in patient with acute dyspnea. Patients with eGFR >= 60 Diagnosis (rule in CHF) <50 Years Old 450 pg/mL 50 - 75 Years Old 900 pg/mL >75 Years Old 1800 pg/mL Exclusion (rule out CHF) Age Independent 300 pg/mL A cutoff of 1200 pg/mL for patients with an eGFR <60 yields a diagnostic sensitivity of 89% and specificity of 72% for acute congestive heart failure. Elma ROACH SEND OUTS Final Res ult [facility] [address] [place] [address], [place] * SCAN-RADIOLOGY REPORT (01/29/2024 12:00 AM CDT) Only the most recent of2 resultswithin the time period is included. Anatomical Region Laterality Modality Other us Scanner OTHER Final Result * SCAN-CT INTERPRETATION (01/29/2024 12:00 AM CDT) Only the most recent of2 resultswithin the time period is included. Anatomical Region Laterality Modality Other us Scanner OTHER Final Result * (ABNORMAL) CBC WITH AUTO DIFFERENTIAL (01/26/2024 8:11 AM CDT) WHITE BLOOD COUNT 15.7(H) 4.5 - 11.0 thou/cu mm 01/26/2024 8:46 AM CDT [facility] RED BLOOD COUNT 3.61(L) 4.30 - 5.90 mil/cu mm 01/26/2024 8:46 AM CDT [facility] HEMOGLOBIN 10.7(L) 13.5 - 17.5 g/dL 01/26/2024 8:46 AM CDT [facility] HEMATOCRIT 32.2(L) 37.0 - 53.0 % 01/26/2024 8:46 AM CDT [facility] MCV 89 80 - 100 fL 01/26/2024 8:46 AM CDT [facility] MCH 29.6 26.0 - 34.0 pg 01/26/2024 8:46 AM CDT [facility] MCHC 33.2 32.0 - 36.0 g/dL 01/26/2024 8:46 AM CDT [facility] RDW 13.5 11.5 - 15.5 % 01/26/2024 8:46 AM CDT [facility] PLATELET COUNT 266 140 - 440 thou/cu mm 01/26/2024 8:46 AM [facility] MPV 10.2 6.5 - 11.0 fL 01/26/2024 8:46 AM [facility] NRBC 0.0 % 01/26/2024 8:46 AM [facility] ABS NRBC 0.0 thou /cu mm 01/26/2024 8:46 AM T [facility] % NEUT 81.1 % 01/26/2024 8:46 AM [facility] % LYMPH 3.8 % 01/26/2024 8:46 AM [facility] % MONO 4.5 % 01/26/2024 8:46 AM [facility] % EOS 9.2 % 01/26/2024 8:46 AM [facility] % BASO 0.2 % 01/26/2024 8:46 AM [facility] % IMMATURE GRAN (METAS,MYELOS,LA OS) 1.2 % 01/26/2024 8:46 AM [facility] ABSOLUTE NEUTROPHILS 12.8(H) 1.7 - 7.0 thou/cu mm 01/26/2024 8:46 AM [facility] ABSOLUTE LYMPHOCYTES 0.6(L) 0.9 - 2.9 thou/cu mm 01/26/2024 8:46 AM [facility] ABSOLUTE MONOCYTES 0.7 <0.9 thou/cu mm 01/26/2024 8:46 AM [facility] ABSOLUTE EOSINOPHILS 1.5(H) <0.5 thou/cu mm 01/26/2024 8:46 AM [facility] ABSOLUTE BASOPHILS 0.0 <0.3 thou/cu mm 01/26/2024 8:46 AM [facility] ABSOLUTE IMMATURE GRANULOCYTES(MET ,MYELOS,PROS) 0.2 <0.3 thou/cu mm 01/26/2024 8:46 AM CDT [facility] Blood BLOOD SPECIMEN / Unknown Butterfly / Unknown 01/26/2024 8:11 AM CDT 01/26/2024 8:26 AM CDT Samuel Ashford MD HEMATOLOGY Fi nal Result [facility] [address] [place] [id number], * (ABNORMAL) Hepatic function panel AM (01/26/2024 8:11 AM CDT) ALBUMIN 3.2(L) 4.0 - 4.9 g/dL 01/26/2024 8:57 AM CDT [facility] PROTEIN,TOTAL 6.1 6.0 - 8.0 g/dL 01/26/2024 8:57 AM CDT [facility] BILIRUBIN,TOTAL 0.6 0.0 - 1.2 mg/dL 01/26/2024 8:57 AM CDT [facility] BILIRUBIN,DIRECT 0.3(H) 0.0 - 0.2 mg/dL 01/26/2024 8:57 AM CDT [facility] BILIRUBIN,INDIRE CT 0.3 0.2 - 0.8 mg/dL 01/26/2024 8:57 AM CDT [facility] ALK PHOSPHATASE 83 40 - 129 IU/L 01/26/2024 8:57 AM CDT [facility] ALT (SGPT) 64(H) 10 - 50 IU/L 01/26/2024 8:57 AM CDT [facility] AST (SGOT) 48 10 - 50 IU/L 01/26/2024 8:57 AM CDT [facility] Blood BLOOD SPECIMEN / Unknown Butterfly / Unknown 01/26/2024 8:11 AM CDT 01/26/2024 8:26 AM CDT Samuel Ashford MD CHEMISTRY Fi nal Result Performing Organization Address [facility]/ZIP Co de Phone Number [facility] [address] [place] [address], * (ABNORMAL) GLUCOSE METER (01/26/2024 7:52 AM CDT) Only the most recent of13 resultswithin the time period is included. GLUCOSE METER 158(H) 65 - 100 mg/dL 01/26/2024 8:01 AM CDT [facility] Blood BLOOD SPECIMEN / Unknown 01/26/2024 7:52 AM CDT 01/26/2024 8:01 AM CDT Samuel Ashford MD CHEMISTRY Fi nal Result Performing Organization Address [facility] de Phone Number [facility] [address] [place] [address], [place] * SCAN-CARDIAC STRIP (01/25/2024 11:37 PM CDT) us Scanner OTHER Final Result * SCAN-CARDIAC STRIP (01/25/2024 10:59 AM CDT) us Scanner OTHER Final Result * (ABNORMAL) WBC AM (01/25/2024 6:22 AM CDT) Only the most recent of2 resultswithin the time period is included. WHITE BLOOD COUNT 13.5(H) 4.5 - 11.0 thou/cu mm 01/25/2024 6:46 AM CDT [facility] NRBC 0.0 % 01/25/2024 6:46 AM CDT [facility] ABS NRBC 0.0 thou /cu mm 01/25/2024 6:46 AM CDT [facility] Blood BLOOD SPECIMEN / Unknown Venipuncture / Unknown 01/25/2024 6:22 AM CDT 01/25/2024 6:36 AM CDT Samuel Ashford MD HEMATOLOGY Fi nal Result Performing Organization Address [facility] [facility] Co de Phone Number [facility] [address] [place] [address], * (ABNORMAL) Creatinine AM (01/25/2024 6:22 AM CDT) eGFR 18(L) >90 mL/min/1.7 3m2 01/25/2024 7:08 AM CDT [facility] Comment:As of 2021, eG FR is calculated by the CKD-EPI creatinine equation without race adjustment. eGFR can be influenced by muscle mass, exercise, and diet. The reported eGFR is an estimation only and is only applicable if the renal function is stable. CREATININE 3.12(H) 0.70 - 1.20 mg/dL 01/25/2024 7:08 AM CDT [facility] Blood BLOOD SPECIMEN / Unknown Venipuncture / Unknown 01/25/2024 6:22 AM CDT 01/25/2024 6:36 AM CDT Samuel Ashford MD CHEMISTRY Fi nal Result Performing Organization Address [facility] Co de Phone Number [facility] [address] [place] [address], [place] * (ABNORMAL) DIFFERENTIAL (01/25/2024 6:22 AM CDT) % NEUT 81.3 % 01/25/2024 12:50 PM CDT [facility] % LYMPH 3.9 % 01/25/2024 12:50 PM CDT [facility] % MONO 4.8 % 01/25/2024 12:50 PM CDT [facility] % EOS 9.2 % 01/25/2024 12:50 PM CDT [facility] % BASO 0.2 % 01/25/2024 12:50 PM CDT [facility] % IMMATURE GRAN (METAS,MYELOS,LA OS) 0.6 % 01/25/2024 12:50 PM CDT [facility] ABSOLUTE NEUTROPHILS 11.4(H) 1.7 - 7.0 thou/cu mm 01/25/2024 12:50 PM CDT [facility] ABSOLUTE LYMPHOCYTES 0.5(L) 0.9 - 2.9 thou/cu mm 01/25/2024 12:50 PM CDT [facility] ABSOLUTE MONOCYTES 0.7 <0.9 thou/cu mm 01/25/2024 12:50 PM CDT [facility] ABSOLUTE EOSINOPHILS 1.3(H) <0.5 thou/cu mm 01/25/2024 12:50 PM CDT [facility] ABSOLUTE BASOPHILS 0.0 <0.3 thou/cu mm 01/25/2024 12:50 PM CDT [facility] ABSOLUTE IMMATURE GRANULOCYTES(MET ,MYELOS,PROS) 0.1 <0.3 thou/cu mm 01/25/2024 12:50 PM CDT [facility] Blood BLOOD SPECIMEN / Unknown Venipuncture / Unknown 01/25/2024 6:22 AM CDT 01/25/2024 6:36 AM CDT Narrative [facility] - 01/25/2024 12:50 PM CDT WBC MUST ALSO BE ORDERED, [id number] Samuel Ashford MD HEMATOLOGY Fi nal Result [facility] [address] [place] [address], * (ABNORMAL) Electrolyte panel AM (01/25/2024 6:22 AM CDT) SODIUM 130(L) 136 - 145 mmol/L 01/25/2024 7:08 AM CDT [facility] POTASSIUM 4.4 3.5 - 5.1 mmol/L 01/25/2024 7:08 AM CDT [facility] CHLORIDE 95(L) 98 - 107 mmol/L 01/25/2024 7:08 AM CDT [facility] CO2,TOTAL 21(L) 22 - 29 mmol/L 01/25/2024 7:08 AM CDT [facility] ANION GAP 14 5 - 18 01/25/2024 7:08 AM CDT [facility] Blood BLOOD SPECIMEN / Unknown Venipuncture / Unknown 01/25/2024 6:22 AM CDT 01/25/2024 6:36 AM CDT us Samuel Ashford MD CHEMISTRY Fi nal Result [facility] [address] [place] [address], [place] * SCAN-CARDIAC STRIP (01/24/2024 9:42 PM CDT) us Scanner OTHER Final Result * SCAN-CARDIAC STRIP (01/24/2024 4:32 PM CDT) us Scanner OTHER Final Result * (ABNORMAL) URINALYSIS MICROSCOPIC (01/24/2024 2:25 PM CDT) RBC 3-5(A) 0-2, None Seen /HPF 01/24/2024 3:05 PM CDT [facility] WBC 0-2 0-2, 3-5, None Seen /HPF 01/24/2024 3:05 PM CDT [facility] BACTERIA None Seen None Seen, Rare, Few Bacteria/ HPF 01/24/2024 3:05 PM CDT [facility] EPITHELIAL CELLS None Seen None Seen, Few Epi/HPF 01/24/2024 3:05 PM CDT [facility] HYALINE CASTS 3-5 0-2, 3-5 /LPF 01/24/2024 3:05 PM CDT [facility] Urine URINE SPECIMEN / Unknown Non-Blood / Unknown 01/24/2024 2:25 PM CDT 01/24/2024 2:47 PM CDT Arnulfo Dunn MD URINE Final Result [facility] [address] [address], [place] * (ABNORMAL) PROTEIN/CREAT RATIO,URINE (01/24/2024 2:25 PM CDT) PROTEIN QUANT,RAND URINE 29(H) 1 - 14 mg/dL 01/24/2024 3:21 PM CDT [facility] CREAT,RANDOM URINE 123.0 39.0 - 259.0 mg/dL 01/24/2024 3:21 PM CDT [facility] PROT/CREAT RATIO,UR 0.2(H) <0.2 01/24/2024 3:21 PM CDT [facility] Urine URINE SPECIMEN / Unknown Non-Blood / Unknown 01/24/2024 2:25 PM CDT 01/24/2024 2:47 PM CDT Arnulfo Dunn MD URINE Final Result [facility] [address] [address], [place] * (ABNORMAL) UA W/ SEDIMENT EXAM REFLEXED PER CRITERIA (01/24/2024 2:25 PM CDT) COLOR Yellow Yellow Color 01/24/2024 3:05 PM CDT [facility] CLARITY Cloudy(A) Clear Clarity 01/24/2024 3:05 PM CDT [facility] SPECIFIC GRAVITY,URINE 1.015 1.010, 1.015, 1.020, 1.025 01/24/2024 3:05 PM CDT [facility] PH,URINE 5.0(A) 6.0, 7.0, 8.0, 5.5, 6.5, 7.5, 8.5 01/24/2024 3:05 PM CDT [facility] UROBILINOGEN, QUALITATIVE Normal Normal EU/dl 01/24/2024 3:05 PM CDT [facility] PROTEIN, URINE 30(A) Negative mg/dL 01/24/2024 3:05 PM CDT [facility] GLUCOSE, URINE Negative Negative mg/dL 01/24/2024 3:05 PM CDT [facility] KETONES,URINE Negative Negative mg/dL 01/24/2024 3:05 PM CDT [facility] BILIRUBIN,URI NE Negative Negative 01/24/2024 3:05 PM CDT [facility] OCCULT BLOOD,URINE Moderate(A) Negative 01/24/2024 3:05 PM CDT [facility] NITRITE Negative Negative 01/24/2024 3:05 PM CDT [facility] LEUKOCYTE ESTERASE Negative Negative 01/24/2024 3:05 PM CDT [facility] Urine URINE SPECIMEN / Unknown Non-Blood / Unknown 01/24/2024 2:25 PM CDT 01/24/2024 2:47 PM CDT Arnulfo Dunn MD URINE Final Result [facility] [address] [place] [address], [place] * SCAN CORRESP-LABORATORY RESULTS (01/24/2024 12:33 PM CDT) Narrative 01/24/2024 12:33 PM CDT Ordered by an unspecified provider. us Other Clinical Staff OTHER Final Resul t * SCAN CORRESP-EKG RESULTS (01/24/2024 12:33 PM CDT) Narrative 01/24/2024 12:33 PM CDT Ordered by an unspecified provider. us Other Clinical Staff OTHER Final Resul t * SCAN CORRESP-IMAGING (01/24/2024 12:33 PM CDT) Anatomical Region Laterality Modality Other Narrative 01/24/2024 12:33 PM CDT Ordered by an unspecified provider. us Other Clinical Staff OTHER Final Resul t * SCAN-CARDIAC STRIP (01/24/2024 7:49 AM CDT) us Scanner OTHER Final Result * SCAN-CARDIAC STRIP (01/23/2024 7:28 PM CDT) us Scanner OTHER Final Result * stool pathogen multiplex PCR (01/23/2024 2:22 PM CDT) Campylobacter NOT Detected NOT Detected 01/23/2024 6:01 PM CDT [facility] Salmonella NOT Detected NOT Detected 01/23/2024 6:01 PM CDT [facility] Shigella NOT Detected NOT Detected 01/23/2024 6:01 PM CDT [facility] Vibrio NOT Detected NOT Detected 01/23/2024 6:01 PM CDT [facility] Yersinia Enterocolitica NOT Detected NOT Detected 01/23/2024 6:01 PM CDT [facility] Shiga Toxin 1 NOT Detected NOT Detected 01/23/2024 6:01 PM CDT [facility] Shiga Toxin 2 NOT Detected NOT Detected 01/23/2024 6:01 PM CDT [facility] Norovirus NOT Detected NOT Detected 01/23/2024 6:01 PM CDT [facility] Rotavirus NOT Detected NOT Detected 01/23/2024 6:01 PM CDT [facility] Stool STOOL SPECIMEN / Unknown Non-Blood / Unknown 01/23/2024 2:22 PM CDT 01/23/2024 2:31 PM CDT Narrative [facility] - 01/23/2024 6:01 PM CDT This test is a Culture Independent Diagnostic Test (CIDT) therefore isolates are not available for susceptibility testing. Antibiotic treatment is often contraindicated and may be detrimental in cases of enteric infections, thus routine susceptibility testing is not recommended. us Jared Gusman MD MICROBIOLOGY Final Res ult Performing Organization Address [facility] Co de Phone Number [facility] [address] [place] [address], * VANCOMYCIN TROUGH (01/23/2024 12:29 PM CDT) Pathologist [facility] VANCOMYCIN,TRO UGH 8.9 7.0 - 20.0 ug/mL 01/23/2024 1:23 PM CDT [facility] DATE OF LAST DOSE,TROUGH Not Given 01/23/2024 1:23 PM CDT [facility] TIME OF LAST DOSE,TROUGH Not Given 01/23/2024 1:23 PM CDT [facility] Blood BLOOD SPECIMEN / Unknown Butterfly / Unknown 01/23/2024 12:29 PM CDT 01/23/2024 12:45 PM CDT us Katya Carranza MD CHEMISTRY Final Result Performing Organization Address [facility] de Phone Number [facility] [address] [place] [address], * SCAN-CARDIAC STRIP (01/23/2024 8:46 AM CDT) us Scanner OTHER Final Result * EKG 12 LEAD (01/23/2024 7:20 AM CDT) Pathologist [facility] Interpretation Atrial fibrillation with premature [...] NOW QTc 434 ms BEYOND NOW P [place] degrees BEYOND NOW R [place] 7 degrees BEYOND NOW T [place] 75 degrees BEYOND NOW 01/23/2024 7:20 AM CDT 01/26/2024 4:39 PM CDT us Teri Dawkins BEHAVIORAL THERAPY COORDINATOR EKG ORD Final Resul t BEYOND NOW [place], [place] * (ABNORMAL) CBC no diff AM (01/23/2024 6:49 AM CDT) WHITE BLOOD COUNT 12.0(H) 4.5 - 11.0 thou/cu mm 01/23/2024 7:16 AM CDT [facility] RED BLOOD COUNT 3.96(L) 4.30 - 5.90 mil/cu mm 01/23/2024 7:16 AM CDT [facility] HEMOGLOBIN 11.9(L) 13.5 - 17.5 g/dL 01/23/2024 7:16 AM CDT [facility] HEMATOCRIT 35.4(L) 37.0 - 53.0 % 01/23/2024 7:16 AM CDT [facility] MCV 89 80 - 100 fL 01/23/2024 7:16 AM CDT [facility] MCH 30.1 26.0 - 34.0 pg 01/23/2024 7:16 AM CDT [facility] MCHC 33.6 32.0 - 36.0 g/dL 01/23/2024 7:16 AM CDT [facility] RDW 13.0 11.5 - 15.5 % 01/23/2024 7:16 AM CDT [facility] PLATELET COUNT 155 140 - 440 thou/cu mm 01/23/2024 7:16 AM CDT [facility] MPV 10.4 6.5 - 11.0 fL 01/23/2024 7:16 AM CDT [facility] NRBC 0.0 % 01/23/2024 7:16 AM CDT [facility] ABS NRBC 0.0 thou /cu mm 01/23/2024 7:16 AM CDT [facility] Blood BLOOD SPECIMEN / Unknown Butterfly / Unknown 01/23/2024 6:49 AM CDT 01/23/2024 7:03 AM CDT Jared Gusman MD HEMATOLOGY Final Res ult Performing Organization Address [facility]/ZIP Co de Phone Number [facility] [address] [place] [address], [place] * (ABNORMAL) C-REACTIVE PROTEIN (01/23/2024 6:49 AM CDT) C-REACTIVE PROTEIN 30.3(H) <0.5 mg/dL 01/23/2024 7:52 AM CDT [facility] Blood BLOOD SPECIMEN / Unknown Butterfly / Unknown 01/23/2024 6:49 AM CDT 01/23/2024 7:03 AM CDT Jared Gusman MD CHEMISTRY Final Res ult Performing Organization Address [facility] Co de Phone Number [facility] [address] [address], [place] * SCAN-CARDIAC STRIP (01/23/2024 3:11 AM CDT) Scanner OTHER Final Result * VANCOMYCIN (01/22/2024 10:15 PM CDT) VANCOMYCIN <4.0 ug/mL 01/22/2024 10:48 PM CDT [facility] Comment:No Reference Range D efined. DATE OF LAST DOSE,RANDOM 01/20/2024 01/22/2024 10:48 PM CDT [facility] TIME OF LAST DOSE,RANDOM 6:00 PM 01/22/2024 10:48 PM CDT [facility] Blood BLOOD SPECIMEN / Unknown Butterfly / Unknown 01/22/2024 10:15 PM CDT 01/22/2024 10:21 PM CDT Jared Gusman MD CHEMISTRY Final Res ult [facility] [address] [place] [address], [place] * SCAN-CARDIAC STRIP (01/22/2024 5:51 PM CDT) us Scanner OTHER Final Result * ECHO TTE COMPLETE WO CONTRAST (01/20/2024 12:52 PM CDT) AORTIC VALVE MEAN PG 46 mmHg EJECTION FRACTION 59 % LVEDD 5.7 cm Anatomical Region Laterality Modality Ultrasound 01/20/2024 12:1 1 PM CDT Narrative 01/20/2024 1:33 PM CDT ECHOCARDIOGRAM ANDERS BROOKS : 1935 89 years Study Date: 01/20/2024 12:11:40 PM Gender: M BP: 149/84 mmHg Height: 165.00 cm BSA: 2.09 m Weight: 103.00 kg Tech: MSR Referring MD: SOPHIE VILLAFANA Site: [facility] Reading Location: [facility] Patient Location: Inpatient. Procedure: 2D, Color Doppler [...] normal. Right atrial volume index is 22 ml/m . Right atrial area is 17 cm . The pulmonary artery is not well visualized. [...] Vol index 22 ml/m2 RA area 17 cm RV Max 4C (d) 3.8 cm Diastology: Mitral Tissue Doppler E Peak 1.2 m/s e', Septum 0.06 m/s A Peak 1.3 m/s e', Lateral 0.05 m/s E/A 1.0 E/e' Average 21.62 DT 132 msec Aortic Valve: Vmax 4.0 m/s JOAN (V) 0.71 cm AI P 1/2 331 msec VTI 0.92 m JOAN (I) 0.64 cm LVOT V max 0.8 m/s Max PG 63 mmHg LVOT VTI 0.18 m Mean PG 46 mmHg SV 58 ml Dim Index 0.19 SV index 28 ml/m CO 4.9 l/min CI 2.3 l/min/m Mitral Valve: MVA 5.7 cm MV P 1/2 38 msec MV Mean G 5 mmHg MV VTI 0.35 m Tricuspid Valve and estimated PA pressures: TAPSE 2.4 cm . This study was interpreted by an [facility] accredited facility. CC: HIM (med records) [facility], Med/Surg - IP [facility]. Final Procedure Note Anders Em MD - 01/20/2024 ECHOCARDIOGRAM ANDERS BROOKS : 1935 89 years Study Date: 01/20/2024 12:11:40 PM Gender: M BP: 149/84 mmHg Height: 165.00 cm BSA: 2.09 m Weight: 103.00 kg Tech: MSR Referring MD: SOPHIE VILLAFANA Site: [facility] Reading Location: Mobile JOSÉ MANUEL [...] normal. Right atrial volume index is 22 ml/m . Rightatrial area is 17 cm . The pulmonary artery is not well visualized. [...] Vol index 22 ml/m2 RA area 17 cm RV Max 4C (d) 3.8 cm Diastology: Mitral Tissue Doppler E Peak 1.2 m/s e', Septum 0.06 m/s A Peak 1.3 m/s e', Lateral 0.05 m/s E/A 1.0 E/e' Average 21.62 DT 132 msec Aortic Valve: Vmax 4.0 m/s JOAN (V) 0.71 cm AI P 1/2 331 msec VTI 0.92 m JOAN (I) 0.64 cm LVOT V max 0.8 m/s Max PG 63 mmHg LVOT VTI 0.18 m Mean PG 46 mmHg SV 58 ml Dim Index 0.19 SV index 28 ml/m CO 4.9 l/min CI 2.3 l/min/m Mitral Valve: MVA 5.7 cm MV P 1/2 38 msec MV Mean G 5 mmHg MV VTI 0.35 m Tricuspid Valve and estimated PA pressures: TAPSE 2.4 cm . This study was interpreted by an [facility] accredited facility. CC: [place] (med records) [facility], Med/Surg - IP [facility]. Final us Sophie Villafana MD ECHO ORD Final Result from Last 3 Months Insurance MEDICARE PB ONLY MEDICARE PART B HB ONLY [facility] MEDICARE PART A HB ONLY MEDICARE PART A HB ONLY MEDICARE PART B HB ONLY [facility] Advance Directives * DNR (Latest Code Status [...] 11:58 AM 01/04/2009 1:38 PM Care Teams [employer] Salesperson Relationship Specialty Start Date End Date [place] [address] [address] PCP - General Family Practice 03/16/22
--- OUTSIDE RECORDS SUMMARY | 2024-04-05 00:43 | XMS_ITS | Continuity of Care Document ---
Author Name NwHIN User KobleMN-a llowed Address Unknown Organization Unknown Address Unknown Procedures FILTER APPLIED:Only known Procedures with Onset Date within the last 5 years Procedure Date Procedure Provider Additiona l Information Status CBC AND DIFFERENTIAL (36118) Completed HEPATIC FUNCTION PANEL (67577) Completed POTASSIUM (83698) Comple simeon DIFFERENTIAL (02934) Com pleted CREATININE (83500) Compl eted ELECTROLYTE PANEL (73574) Completed UA W/ SEDIMENT EXAM REFLEXED PER CRITERIA (14437) Completed URINALYSIS MICROSCOPIC (47850) Completed WHITE BLOOD COUNT (07474) Completed PRO-BNP (65136) Complete d CBC W PLT NO DIFF (94559) Completed BASIC METABOLIC PANEL (20099) Completed C-REACTIVE PROTEIN (51499) Completed VANCOMYCIN TROUGH (93296) Completed GLUCOSE METER (75467) Co mpleted Encounters FILTER APPLIED:Only known Encounters with Admission Date within the last 5 years No Known Encounter
--- NOTE | 2024-04-05 01:09 | CRLHL7_ITS ---
For Patients: As a result of the Cures Act, medical imaging exams and procedure reports are released immediately into your electronic medical record. You may view this report before your referring provider. If you have questions, please contact your health care provider. INDICATION: Shortness of breath TECHNIQUE: Chest radiograph 1 view COMPARISON: 01/22/2024 FINDINGS: The sensitivity and specificity of the exam are severely limited by the patient`s body habitus. Mediastinum: The heart silhouette is difficult to evaluate given the degree of left lung basilar consolidation. The heart silhouette is normal in size and morphology. Lung: Consolidation of the left lung base with a large left pleural effusion present, significantly increased from prior exam. Mild perihilar edema, vascular congestion, and right basilar atelectasis is seen. No pneumothorax is identified. Bone and Soft tissue: Unremarkable for age. IMPRESSIONS: 1. Consolidation of the left lung base with a large left pleural effusion present, significantly increased from prior exam. 2. Mild perihilar edema, vascular congestion, and right basilar atelectasis is seen. Dictated by Irwin Chapman MD @ 04/05/2024 1:43:20 AM Dictated by: Irwin Chapman MD @ 04/05/2024 01:43:27 (Electronically Signed)
[2024-04-05 01:10] LABS: SARS Antigen* POSITIVE (Negative)
[2024-04-05 01:27] LABS: Basophils Absolute Auto 0.01 K/uL (0.00-0.30); Basophils Percent Auto 0.1 % (0.0-3.0); Eosinophils Absolute Auto 0.05 K/uL (0.00-0.50); Eosinophils Percent Auto 0.6 % (0.0-7.0); Hematocrit 39.9 % (37.0-53.0); Hemoglobin* 12.9 gm/dL (13.5-17.5); Immature Granulocytes Abs Auto 0.01 K/uL (0.00-0.30); Immature Granulocytes Pct Auto 0.1 %; Mean Corpuscular HGB Conc 32 gm/dL (32-36); Mean Corpuscular Hemoglobin 30 pg (26-34); Mean Corpuscular Volume 93 fL (80-100); Monocytes Percent Auto 7.2 % (0.0-11.0); Platelet Count* 191 K/uL (140-440); RDW Coefficient of Variation % 12.5 % (11.5-15.5); Red Blood Count 4.31 m/uL (4.30-5.90); White Blood Count* 8.21 K/uL (4.50-11.00)
[2024-04-05 01:28] LABS: Slide Review Reflex No
[2024-04-05 01:41] LABS: Chloride* 100 mmol/L (96-114); Potassium* 4.4 mmol/L (3.6-5.1); Sodium* 136 mmol/L (135-149)
[2024-04-05 01:43] LABS: Est. Creatinine Clearance* 22.21; Estimated Glomerular Filt Rate 32 ml/min
[2024-04-05 01:44] LABS: Anion Gap 10 mEq/L (7-15); Blood Urea Nitrogen* 34 mg/dL (7-30); Calcium* 8.4 mg/dL (8.4-10.6); Carbon Dioxide* 26 mmol/L (20-32); Glucose* 131 mg/dL (60-115)
--- OUTSIDE RECORDS SUMMARY | 2024-04-05 01:49 | XMS_ITS | Continuity of Care Document ---
Author Name NwHIN User KobleMN-a llowed Address Unknown Organization Unknown Address Unknown Procedures FILTER APPLIED:Only known Procedures with Onset Date within the last 5 years Procedure Date Procedure Provider Additiona l Information Status CBC AND DIFFERENTIAL (63703) Completed HEPATIC FUNCTION PANEL (10722) Completed POTASSIUM (07810) Comple simeon DIFFERENTIAL (82001) Com pleted CREATININE (89608) Compl eted ELECTROLYTE PANEL (46378) Completed UA W/ SEDIMENT EXAM REFLEXED PER CRITERIA (46279) Completed URINALYSIS MICROSCOPIC (04863) Completed WHITE BLOOD COUNT (59938) Completed PRO-BNP (58323) Complete d CBC W PLT NO DIFF (71866) Completed BASIC METABOLIC PANEL (60830) Completed C-REACTIVE PROTEIN (99995) Completed VANCOMYCIN TROUGH (36312) Completed GLUCOSE METER (32666) Co mpleted Encounters FILTER APPLIED:Only known Encounters with Admission Date within the last 5 years No Known Encounter
--- OUTSIDE RECORDS SUMMARY | 2024-04-05 01:49 | XMS_ITS | Clinical Summary ---
Author Organization [facility] Address [place], [place] [address] Care Team Providers Care Boxing Promoter Name Role Phone Rodney Vergara MD Primary Care Provider [phone] Allergies Active Allergy Reactions Criticality Noted Date [...] Department Care Team Description 03/27/2024 8:15 AM SAGGER FILLER Phone Office Visit [facility] [place] [address] Carley Cartwright PA covid exposure 03/27/2024 Travel 03/26/2024 Telephone [facility] [place] [address] Rodney Vergara MD Questions (COVID-19) 03/20/2024 7:30 AM SAGGER FILLER Office Visit [facility] [place] [address] Rodney Vergara MD Diabetes (routine); Breathing Problem (Has been short of breath) 03/20/2024 Travel 03/16/2024 Refill [facility] [place] [address] Rodney Vergara MD Refill Request (Incruse Ellipta) 03/14/2024 7:30 AM SAGGER FILLER Orders Only [address] [place] [address] Lab, [place] Lab 03/14/2024 Travel 03/13/2024 Telephone [facility] [place] [address] Rodney Vergara MD Lab (LAB ORDERS NEEDED) 03/12/2024 Telephone [facility] - [address] [place] [id number] Elma Zayas PA Weight 02/28/2024 11:20 AM SAGGER FILLER Office Visit [facility] [address] [place] [address] Case, MARLEY Keenan Follow Up ([facility] ([facility]92 DOESN'T WORK FOR [employer]) LABS DONE SAME DAY PRIOR./DX: Acute diastolic CHF (congestive heart failure) (HC) [I50.31] //Pt states he has started to feel a lot better over the past month or so. Pt reports fluctuating BPs.) 02/28/2024 10:40 AM SAGGER FILLER Orders Only [facility] [address] [facility] [address] [place] [address] Lab 02/28/2024 Travel 02/15/2024 8:15 AM SAGGER FILLER Orders Only [facility] [address] [place] [address] Lab, [place] Lab 02/15/2024 Travel 02/02/2024 Telephone [facility] [address] [place] [address] Rodney Vergara MD Referral (Home Care Referral) 01/31/2024 3:35 PM SAGGER FILLER Office Visit [facility] [address] [place] [address] Rodney Vergara MD Hospital F/U (Congestive heart failure - [facility] 01/25 discharge) 01/31/2024 Travel 01/29/2024 Orders Only [facility] Scanner 1 scan: (1-Ord) [facility], HEAD/BRAIN WITH CONTRAST, 01/29/2024 01/29/2024 Orders Only [facility] Scanner 1 scan: (1-Ord) [place], XR WRIST LT MIN 3V, 01/29/2024 01/29/2024 Nurse Triage [facility] [address] [place] [address] Rodney Vergara MD Arm Numbness 01/27/2024 Patient Outreach [facility] [address] [place] [address] Nayeli Han RN Primary RN Care Management; Hospital F/U (Lace 55) 01/22/2024 5:01 PM CDT - 01/26/2024 12:20 PM CDT Hospital Encounter [address] [place] [address] [facility], MD Makeda Calderón Bradley Thomas, MD Acute diastolic CHF (congestive heart failure) (HC) (Primary Dx); Chronic diastolic CHF (congestive heart failure) (HC); Paroxysmal atrial fibrillation (HC); Rash; Stage 4 chronic kidney disease (HC); Atrial fibrillation with RVR (HC) Discharge Disposition: Home Health 01/22/2024 Orders Only [facility] Scanner 1 scan: (1-Ord) [place], CHEST 1V PORTABLE, 01/22/2024 01/22/2024 Travel 01/22/[address] [place] [address] Kvng Howell MD 01/20/2024 10:00 AM CDT Ancillary Procedure [facility] [address] [place] [address] 01/20/2024 Travel 01/19/2024 Orders Only [facility] Scanner 1 scan: (1-Ord) [facility], CHEST ABDOMEN PELV WITHOUT CONTRAST, 01/19/2024 from Last 3 Months Immunizations Name Administration Dates Next Due COVID-19 vaccine (Pfizer-Bio NTech 30mcg/0.3mL) 12YO+ BIVALENT PF, MDV 02/03/2022 COVID-19 vaccine (Pfizer-Bio NTech 30mcg/0.3mL) 12YO+ JESICA-SUCROSE PF, MDV 08/06/2021 COVID-19 vaccine (Dualog-Bio NTech 30mcg/0.3mL) PF, MDV 01/01/2021,05/23/2020,05/02/2020 Influenza, High-dose [...] drink = 0.6 oz pur e alcohol) [facility] Utilities Answer Date Recorded Do [...] on file Legal Sex Male 6:30 AM SAGGER FILLER Gender Identity Not on file Sexual Orientation Not on file Occupation Industry Job Start Date Job End Date Retired Not on file Not on file Not on file Obstetrics History Last Filed Vital Signs Vital Sign Reading Time Taken Comments Blood Pressure 148/80 03/20/2024 8:10 AM SAGGER FILLER Pulse 93 03/20/2024 7:36 AM SAGGER FILLER Temperature 36.3 C (97.3 F) 03/20/2024 7:36 AM SAGGER FILLER Respiratory Rate 20 01/26/2024 8:15 AM CDT Oxygen Saturation 93% 03/20/2024 7:36 AM SAGGER FILLER Inhaled Oxygen Concentration - - Weight 99.9 kg (220 lb 3.2 oz) 03/20/2024 7:36 A M SAGGER FILLER Height 161.3 cm (5' 3.5) 02/28/2024 11:21 AM CS T Body Mass Index 38.39 02/28/2024 11:21 AM SAGGER FILLER Plan of Treatment Upcoming Encounters Date Type Department Care Team (Late st Contact Info) Description 04/10/2024 2:30 PM SAGGER FILLER Office Visit [facility] [address] [facility] [phone] Da Baker MD [address] [facility] [address] [place] [address] 09/12/2024 7:30 AM CDT Orders Only [facility] [address] [place] [address] Kwaku Mckeon 09/18/2024 7:30 AM CDT Office Visit [facility] [address] [facility] [address] Rodney Vergara MD [address] [place] [address] Health Maintenance Due Date Last Done Comments [...] Levy MD Medical Devices Implanted Type Area Grind Operator Device Identifier Shelf Expiration Date Model / Serial / Lot Graft Knitted [id number] Stra [place] [id number] [employer] - [id number] Implanted:Qty: 1 on 12/30/2008 at N/A: [employer] [id number]# / [id number] / Troy Cruz [id number] - [id number] Implanted:Qty: 1 on 12/30/2008 at [employer] [id number]# / / Cmnt Bone 40g Simplex P Atb Mvtobramycin - [id number] Implanted:Qty: 1 on 06/21/2017 by Joe Savage MD at Right: [employer] 11/25/2018 [id number] # / / [id number] Cmnt Bone 40g Simplex P Atb Mvtobramycin - [id number] Implanted:Qty: 1 on 06/21/2017 by Joe Savage MD at Right: [employer] 11/25/2018 [id number] # / / [id number] Fem Rt Sz6 Journey Ii Bcs Oxin - [id number] Implanted:Qty: 1 on 06/21/2017 by Joe Savage MD at Right: [employer] 02/12/2027 [id number]# / / [id number] Baseplate Tib Rt Sz5 Termite Treater Helper Journey - [id number] Implanted:Qty: 1 on 06/21/2017 by Joe Savage MD at Right: [employer] 12/04/2026 [id number]# / / [id number] Patella Sz35 Journey Rnd Non Pors - [id number] Implanted:Qty: 1 on 06/21/2017 by Joe Savage MD at Right: [employer]nee [employer] 02/12/2027 [id number]# / / [id number] Insert Knee Rt Sz5-6 9mm Journey Ii Bcs Bi Cruc Stbz - [id number] Implanted:Qty: 1 on 06/21/2017 by Joe Savage MD at Right: Knee [employer] 12/27/2026 [id number]# / / [id number] Procedures Procedure Name Priority Date/Time Associated Diagnosis Comments BASIC METABOLIC PANEL Routine 03/14/2024 7:18 AM SAGGER FILLER Controlled type 2 diabetes mellitus without complication, without long-term current use of insulin (HC) LIPID PANEL W REFLEX MEASURED LDL Routine 03/14/2024 7:18 AM SAGGER FILLER Controlled type 2 diabetes mellitus without complication, without long-term current use of insulin (HC) HEMOGLOBIN A1C MONITORING (POCT) Routine 03/14/2024 7:17 AM SAGGER FILLER Controlled type 2 diabetes mellitus without complication, without long-term current use of insulin (HC) PRO-BNP Routine 02/28/2024 10:30 AM SAGGER FILLER Chronic diastolic CHF (congestive heart failure) (HC) BASIC METABOLIC PANEL Routine 02/28/2024 10:26 AM SAGGER FILLER Chronic diastolic CHF (congestive heart failure) (HC) [...] W REFLEX MEASURED LDL (03/14/2024 7:18 AM SAGGER FILLER) CHOLESTEROL, TOTAL 118 <200 mg/dL [facility] [...] LDL-C. Vinod SS et al. NELIDA. 2013;310(19): 8099-5870 (http://education.BuffaloPacific/faq/GGO865) CHOL/HDLC RATIO 3.8 <5.0 (calc) [facility] NON HDL CHOLESTEROL 87 <130 mg/dL (calc) [facility] Comment: For patients with diabetes plus 1 major ASCVD risk factor, treating to a non-HDL-C goal of <100 mg/dL (LDL-C of <70 mg/dL) is considered a therapeutic option. Blood BLOOD SPECIMEN / Unknown 03/14/2024 7:18 AM SAGGER FILLER 03/14/2024 7:19 AM SAGGER FILLER us Rodney Vergara MD CHEMISTRY Final Resu lt [employer] [facility] [address] [place] [address], [facility] [address] [place] [address] * (ABNORMAL) BASIC METABOLIC PANEL (03/14/2024 7:18 AM SAGGER FILLER) Only the most recent of5 resultswithin the time period is included. Pathologist [facility] GLUCOSE 108(H) 65 - 99 mg/dL [facility] Comment: Fasting reference interval For someone without known diabetes, a glucose value between 100 and 125 mg/dL is consistent with prediabetes and should be confirmed with a follow-up test. UREA NITROGEN (BUN) 28(H) 7 - 25 mg/dL [facility] CREATININE 2.00(H) 0.70 - 1.22 mg/dL [facility] EGFR 32(L) > OR = 60 mL/min/1.7 3m2 [facility] BUN/CREATININE RATIO 14 6 - 22 (calc) [facility] SODIUM 137 135 - 146 mmol/L [facility] POTASSIUM 4.1 3.5 - 5.3 mmol/L [facility] CHLORIDE 100 98 - 110 mmol/L [facility] CARBON DIOXIDE 24 20 - 32 mmol/L [facility] ELECTROLYTE BALANCE 13 7 - 17 mmol/L (calc) [facility] CALCIUM 8.6 8.6 - 10.3 mg/dL [facility] Blood BLOOD SPECIMEN / Unknown 03/14/2024 7:18 AM SAGGER FILLER 03/14/2024 7:19 AM SAGGER FILLER us Rodney Vergara MD CHEMISTRY Final Resu lt [facility] [facility] [address] [place] [address], [facility] [address] [place] [address] * HEMOGLOBIN A1C MONITORING (POCT) (03/14/2024 7:17 AM SAGGER FILLER) Pathologist [facility] POC HEMOGLOBIN A1C 5.8 <6.0 % OF TOTAL HGB [facility] Comment: Any point of care results exhibiting inconsistency with the patient's clinical status should be repeated using a different testing method. Blood BLOOD SPECIMEN / Unknown 03/14/2024 7:17 AM SAGGER FILLER 03/14/2024 7:17 AM SAGGER FILLER Rodney Vergara MD CHEMISTRY Final Resu lt [facility] [address] [place] [address], [facility] [address] [place] [address] * (ABNORMAL) PRO-BNP (02/28/2024 10:30 AM SAGGER FILLER) Only the most recent of2 resultswithin the time period is included. [facility] PRO-BNP 2,439(H) <450 pg/mL 02/28/2024 5:19 PM SAGGER FILLER [facility] Blood BLOOD SPECIMEN / Unknown [facility] / Unknown 02/28/2024 10:30 AM SAGGER FILLER 02/28/2024 11:08 AM SAGGER FILLER Narrative [facility] - 02/28/2024 5:19 PM SAGGER FILLER The following cut-points have been suggested for [...] Elma ROACH SEND OUTS Final Res ult [facility] [address] [place] [address], [place] * SCAN-RADIOLOGY REPORT (01/29/2024 12:00 AM [...] 11.0 thou/cu mm 01/26/2024 8:46 AM CDT [facility] RED BLOOD COUNT 3.61(L) 4.30 - 5.90 mil/cu mm 01/26/2024 8:46 AM CDT [facility] HEMOGLOBIN 10.7(L) 13.5 - 17.5 g/dL 01/26/2024 8:46 AM CDT [facility] HEMATOCRIT 32.2(L) 37.0 - 53.0 % 01/26/2024 8:46 AM CDT [facility] MCV 89 80 - 100 fL 01/26/2024 8:46 AM CDT [facility] MCH 29.6 26.0 - 34.0 pg 01/26/2024 8:46 AM CDT [facility] MCHC 33.2 32.0 - 36.0 g/dL 01/26/2024 8:46 AM CDT [facility] RDW 13.5 11.5 - 15.5 % 01/26/2024 8:46 AM CDT [facility] PLATELET COUNT 266 140 - 440 thou/cu mm 01/26/2024 8:46 AM [facility] MPV 10.2 6.5 - 11.0 fL 01/26/2024 8:46 AM [facility] NRBC 0.0 % 01/26/2024 8:46 AM [facility] ABS NRBC 0.0 thou /cu mm 01/26/2024 8:46 AM T [facility] % NEUT 81.1 % 01/26/2024 8:46 AM [facility] % LYMPH 3.8 % 01/26/2024 8:46 AM [facility] % MONO 4.5 % 01/26/2024 8:46 AM [facility] % EOS 9.2 % 01/26/2024 8:46 AM [facility] % BASO 0.2 % 01/26/2024 8:46 AM [facility] % IMMATURE GRAN (METAS,MYELOS,WI OS) 1.2 % 01/26/2024 8:46 AM [facility] ABSOLUTE NEUTROPHILS 12.8(H) 1.7 - 7.0 thou/cu mm 01/26/2024 8:46 AM [facility] ABSOLUTE LYMPHOCYTES 0.6(L) 0.9 - 2.9 thou/cu mm 01/26/2024 8:46 AM [facility] ABSOLUTE MONOCYTES 0.7 <0.9 thou/cu mm 01/26/2024 8:46 AM [facility] ABSOLUTE EOSINOPHILS 1.5(H) <0.5 thou/cu mm 01/26/2024 8:46 AM [facility] ABSOLUTE BASOPHILS 0.0 <0.3 thou/cu mm 01/26/2024 8:46 AM [facility] ABSOLUTE IMMATURE GRANULOCYTES(MET ,MYELOS,PROS) 0.2 <0.3 thou/cu mm 01/26/2024 8:46 AM CDT [facility] Blood BLOOD SPECIMEN / Unknown Butterfly / Unknown 01/26/2024 8:11 AM CDT 01/26/2024 8:26 AM CDT Samuel Ashford MD HEMATOLOGY Fi nal Result [facility] [address] [place] [address], * (ABNORMAL) Hepatic function panel AM (01/26/2024 8:11 AM CDT) ALBUMIN 3.2(L) 4.0 - 4.9 g/dL 01/26/2024 8:57 AM CDT [facility] PROTEIN,TOTAL 6.1 6.0 - 8.0 g/dL 01/26/2024 8:57 AM CDT [facility] BILIRUBIN,TOTAL 0.6 0.0 - 1.2 mg/dL 01/26/2024 8:57 AM CDT [facility] BILIRUBIN,DIRECT 0.3(H) 0.0 - 0.2 mg/dL 01/26/2024 8:57 AM CDT [facility] BILIRUBIN,INDIRE CT 0.3 0.2 - 0.8 mg/dL 01/26/2024 8:57 AM CDT [facility] ALK PHOSPHATASE 83 40 - 129 IU/L 01/26/2024 8:57 AM CDT [facility] ALT (SGPT) 64(H) 10 - 50 IU/L 01/26/2024 8:57 AM CDT [facility] AST (SGOT) 48 10 - 50 IU/L 01/26/2024 8:57 AM CDT [facility] Blood BLOOD SPECIMEN / Unknown Butterfly / Unknown 01/26/2024 8:11 AM CDT 01/26/2024 8:26 AM CDT Samuel Ashford MD CHEMISTRY Fi nal Result Performing Organization Address [facility]/ZIP Co de Phone Number [facility] [address] [place] [address], * (ABNORMAL) GLUCOSE METER (01/26/2024 7:52 AM CDT) Only the most recent of13 resultswithin the time period is included. GLUCOSE METER 158(H) 65 - 100 mg/dL 01/26/2024 8:01 AM CDT [facility] Blood BLOOD SPECIMEN / Unknown 01/26/2024 7:52 AM CDT 01/26/2024 8:01 AM CDT Samuel Ashford MD CHEMISTRY Fi nal Result Performing Organization Address [facility] de Phone Number [facility] [address] [place] [address], [place] * SCAN-CARDIAC STRIP (01/25/2024 11:37 PM CDT) us Scanner OTHER Final Result * SCAN-CARDIAC STRIP (01/25/2024 10:59 AM CDT) us Scanner OTHER Final Result * (ABNORMAL) WBC AM (01/25/2024 6:22 AM CDT) Only the most recent of2 resultswithin the time period is included. WHITE BLOOD COUNT 13.5(H) 4.5 - 11.0 thou/cu mm 01/25/2024 6:46 AM CDT [facility] NRBC 0.0 % 01/25/2024 6:46 AM CDT [facility] ABS NRBC 0.0 thou /cu mm 01/25/2024 6:46 AM CDT [facility] Blood BLOOD SPECIMEN / Unknown Venipuncture / Unknown 01/25/2024 6:22 AM CDT 01/25/2024 6:36 AM CDT Samuel Ashford MD HEMATOLOGY Fi nal Result Performing Organization Address [facility] Co de Phone Number [facility] [address] [place] [address], * (ABNORMAL) Creatinine AM (01/25/2024 6:22 AM CDT) eGFR 18(L) >90 mL/min/1.7 3m2 01/25/2024 7:08 AM CDT [facility] Comment:As of 2021, eG FR is calculated by the CKD-EPI creatinine equation without race adjustment. eGFR can be influenced by muscle mass, exercise, and diet. The reported eGFR is an estimation only and is only applicable if the renal function is stable. CREATININE 3.12(H) 0.70 - 1.20 mg/dL 01/25/2024 7:08 AM CDT [facility] Blood BLOOD SPECIMEN / Unknown Venipuncture / Unknown 01/25/2024 6:22 AM CDT 01/25/2024 6:36 AM CDT Samuel Ashford MD CHEMISTRY Fi nal Result Performing Organization Address [facility] Co de Phone Number [facility] [address] [place] [address], [place] * (ABNORMAL) DIFFERENTIAL (01/25/2024 6:22 AM CDT) % NEUT 81.3 % 01/25/2024 12:50 PM CDT [facility] % LYMPH 3.9 % 01/25/2024 12:50 PM CDT [facility] % MONO 4.8 % 01/25/2024 12:50 PM CDT [facility] % EOS 9.2 % 01/25/2024 12:50 PM CDT [facility] % BASO 0.2 % 01/25/2024 12:50 PM CDT [facility] % IMMATURE GRAN (METAS,MYELOS,WI OS) 0.6 % 01/25/2024 12:50 PM CDT [facility] ABSOLUTE NEUTROPHILS 11.4(H) 1.7 - 7.0 thou/cu mm 01/25/2024 12:50 PM CDT [facility] ABSOLUTE LYMPHOCYTES 0.5(L) 0.9 - 2.9 thou/cu mm 01/25/2024 12:50 PM CDT [facility] ABSOLUTE MONOCYTES 0.7 <0.9 thou/cu mm 01/25/2024 12:50 PM CDT [facility] ABSOLUTE EOSINOPHILS 1.3(H) <0.5 thou/cu mm 01/25/2024 12:50 PM CDT [facility] ABSOLUTE BASOPHILS 0.0 <0.3 thou/cu mm 01/25/2024 12:50 PM CDT [facility] ABSOLUTE IMMATURE GRANULOCYTES(MET ,MYELOS,PROS) 0.1 <0.3 thou/cu mm 01/25/2024 12:50 PM CDT [facility] Blood BLOOD SPECIMEN / Unknown Venipuncture / Unknown 01/25/2024 6:22 AM CDT 01/25/2024 6:36 AM CDT Narrative [facility] - 01/25/2024 12:50 PM CDT WBC MUST ALSO BE ORDERED, [id number] Samuel Ashford MD HEMATOLOGY Fi nal Result [facility] [address] [place] [address], * (ABNORMAL) Electrolyte panel AM (01/25/2024 6:22 AM CDT) SODIUM 130(L) 136 - 145 mmol/L 01/25/2024 7:08 AM CDT [facility] POTASSIUM 4.4 3.5 - 5.1 mmol/L 01/25/2024 7:08 AM CDT [facility] CHLORIDE 95(L) 98 - 107 mmol/L 01/25/2024 7:08 AM CDT [facility] CO2,TOTAL 21(L) 22 - 29 mmol/L 01/25/2024 7:08 AM CDT [facility] ANION GAP 14 5 - 18 01/25/2024 7:08 AM CDT [facility] Blood BLOOD SPECIMEN / Unknown Venipuncture / Unknown 01/25/2024 6:22 AM CDT 01/25/2024 6:36 AM CDT us Samuel Ashford MD CHEMISTRY Fi nal Result [facility] [address] [place] [address], [place] * SCAN-CARDIAC STRIP (01/24/2024 9:42 PM CDT) us Scanner OTHER Final Result * SCAN-CARDIAC STRIP (01/24/2024 4:32 PM CDT) us Scanner OTHER Final Result * (ABNORMAL) URINALYSIS MICROSCOPIC (01/24/2024 2:25 PM CDT) RBC 3-5(A) 0-2, None Seen /HPF 01/24/2024 3:05 PM CDT [facility] WBC 0-2 0-2, 3-5, None Seen /HPF 01/24/2024 3:05 PM CDT [facility] BACTERIA None Seen None Seen, Rare, Few Bacteria/ HPF 01/24/2024 3:05 PM CDT [facility] EPITHELIAL CELLS None Seen None Seen, Few Epi/HPF 01/24/2024 3:05 PM CDT [facility] HYALINE CASTS 3-5 0-2, 3-5 /LPF 01/24/2024 3:05 PM CDT [facility] Urine URINE SPECIMEN / Unknown Non-Blood / Unknown 01/24/2024 2:25 PM CDT 01/24/2024 2:47 PM CDT Arnulfo Dunn MD URINE Final Result [facility] [address] [address], [place] * (ABNORMAL) PROTEIN/CREAT RATIO,URINE (01/24/2024 2:25 PM CDT) PROTEIN QUANT,RAND URINE 29(H) 1 - 14 mg/dL 01/24/2024 3:21 PM CDT [facility] CREAT,RANDOM URINE 123.0 39.0 - 259.0 mg/dL 01/24/2024 3:21 PM CDT [facility] PROT/CREAT RATIO,UR 0.2(H) <0.2 01/24/2024 3:21 PM CDT [facility] Urine URINE SPECIMEN / Unknown Non-Blood / Unknown 01/24/2024 2:25 PM CDT 01/24/2024 2:47 PM CDT Arnulfo Dunn MD URINE Final Result [facility] [address] [address], [place] * (ABNORMAL) UA W/ SEDIMENT EXAM REFLEXED PER CRITERIA (01/24/2024 2:25 PM CDT) COLOR Yellow Yellow Color 01/24/2024 3:05 PM CDT [facility] CLARITY Cloudy(A) Clear Clarity 01/24/2024 3:05 PM CDT [facility] SPECIFIC GRAVITY,URINE 1.015 1.010, 1.015, 1.020, 1.025 01/24/2024 3:05 PM CDT [facility] PH,URINE 5.0(A) 6.0, 7.0, 8.0, 5.5, 6.5, 7.5, 8.5 01/24/2024 3:05 PM CDT [facility] UROBILINOGEN, QUALITATIVE Normal Normal EU/dl 01/24/2024 3:05 PM CDT [facility] PROTEIN, URINE 30(A) Negative mg/dL 01/24/2024 3:05 PM CDT [facility] GLUCOSE, URINE Negative Negative mg/dL 01/24/2024 3:05 PM CDT [facility] KETONES,URINE Negative Negative mg/dL 01/24/2024 3:05 PM CDT [facility] BILIRUBIN,URI NE Negative Negative 01/24/2024 3:05 PM CDT [facility] OCCULT BLOOD,URINE Moderate(A) Negative 01/24/2024 3:05 PM CDT [facility] NITRITE Negative Negative 01/24/2024 3:05 PM CDT [facility] LEUKOCYTE ESTERASE Negative Negative 01/24/2024 3:05 PM CDT [facility] Urine URINE SPECIMEN / Unknown Non-Blood / Unknown 01/24/2024 2:25 PM CDT 01/24/2024 2:47 PM CDT Arnulfo Dunn MD URINE Final Result [facility] [address] [place] [address], [place] * SCAN CORRESP-LABORATORY RESULTS (01/24/2024 12:33 [...] Detected NOT Detected 01/23/2024 6:01 PM CDT [facility] Salmonella NOT Detected NOT Detected 01/23/2024 6:01 PM CDT [facility] Shigella NOT Detected NOT Detected 01/23/2024 6:01 PM CDT [facility] Vibrio NOT Detected NOT Detected 01/23/2024 6:01 PM CDT [facility] Yersinia Enterocolitica NOT Detected NOT Detected 01/23/2024 6:01 PM CDT [facility] Shiga Toxin 1 NOT Detected NOT Detected 01/23/2024 6:01 PM CDT [facility] Shiga Toxin 2 NOT Detected NOT Detected 01/23/2024 6:01 PM CDT [facility] Norovirus NOT Detected NOT Detected 01/23/2024 6:01 PM CDT [facility] Rotavirus NOT Detected NOT Detected 01/23/2024 6:01 PM CDT [facility] Stool STOOL SPECIMEN / Unknown Non-Blood / Unknown 01/23/2024 2:22 PM CDT 01/23/2024 2:31 PM CDT Narrative [facility] - 01/23/2024 6:01 PM CDT This test is a Culture Independent Diagnostic Test (CIDT) therefore isolates are not available for susceptibility testing. Antibiotic treatment is often contraindicated and may be detrimental in cases of enteric infections, thus routine susceptibility testing is not recommended. us Jared Gusman MD MICROBIOLOGY Final Res ult Performing Organization Address [facility] Co de Phone Number [facility] [address] [place] [address], * VANCOMYCIN TROUGH (01/23/2024 12:29 PM CDT) Pathologist [facility] VANCOMYCIN,TRO UGH 8.9 7.0 - 20.0 ug/mL 01/23/2024 1:23 PM CDT [facility] DATE OF LAST DOSE,TROUGH Not Given 01/23/2024 1:23 PM CDT [facility] TIME OF LAST DOSE,TROUGH Not Given 01/23/2024 1:23 PM CDT [facility] Blood BLOOD SPECIMEN / Unknown Butterfly / Unknown 01/23/2024 12:29 PM CDT 01/23/2024 12:45 PM CDT us Katya Carranza MD CHEMISTRY Final Result Performing Organization Address [facility] de Phone Number [facility] [address] [place] [address], * SCAN-CARDIAC STRIP (01/23/2024 8:46 AM CDT) us Scanner OTHER Final Result * EKG 12 LEAD (01/23/2024 7:20 AM CDT) Pathologist [facility] Interpretation Atrial fibrillation with premature ventricular or [...] NOW QTc 434 ms BEYOND NOW P [place] degrees BEYOND NOW R [place] 7 degrees BEYOND NOW T [place] 75 degrees BEYOND NOW 01/23/2024 7:20 AM CDT 01/26/2024 4:39 PM CDT us Teri Dawkins [employer]CIPITATION EQUIPMENT TENDER EKG ORD Final Resul t BEYOND NOW [place], [place] * (ABNORMAL) CBC no diff AM (01/23/2024 6:49 AM CDT) WHITE BLOOD COUNT 12.0(H) 4.5 - 11.0 thou/cu mm 01/23/2024 7:16 AM CDT [facility] RED BLOOD COUNT 3.96(L) 4.30 - 5.90 mil/cu mm 01/23/2024 7:16 AM CDT [facility] HEMOGLOBIN 11.9(L) 13.5 - 17.5 g/dL 01/23/2024 7:16 AM CDT [facility] HEMATOCRIT 35.4(L) 37.0 - 53.0 % 01/23/2024 7:16 AM CDT [facility] MCV 89 80 - 100 fL 01/23/2024 7:16 AM CDT [facility] MCH 30.1 26.0 - 34.0 pg 01/23/2024 7:16 AM CDT [facility] MCHC 33.6 32.0 - 36.0 g/dL 01/23/2024 7:16 AM CDT [facility] RDW 13.0 11.5 - 15.5 % 01/23/2024 7:16 AM CDT [facility] PLATELET COUNT 155 140 - 440 thou/cu mm 01/23/2024 7:16 AM CDT [facility] MPV 10.4 6.5 - 11.0 fL 01/23/2024 7:16 AM CDT [facility] NRBC 0.0 % 01/23/2024 7:16 AM CDT [facility] ABS NRBC 0.0 thou /cu mm 01/23/2024 7:16 AM CDT [facility] Blood BLOOD SPECIMEN / Unknown Butterfly / Unknown 01/23/2024 6:49 AM CDT 01/23/2024 7:03 AM CDT Jared Gusman MD HEMATOLOGY Final Res ult Performing Organization Address [facility]/ZIP Co de Phone Number [facility] [address] [place] [address], [place] * (ABNORMAL) C-REACTIVE PROTEIN (01/23/2024 6:49 AM CDT) C-REACTIVE PROTEIN 30.3(H) <0.5 mg/dL 01/23/2024 7:52 AM CDT [facility] Blood BLOOD SPECIMEN / Unknown Butterfly / Unknown 01/23/2024 6:49 AM CDT 01/23/2024 7:03 AM CDT Jared Gusman MD CHEMISTRY Final Res ult Performing Organization Address [facility] Co de Phone Number [facility] [address] [address], [place] * SCAN-CARDIAC STRIP (01/23/2024 3:11 AM CDT) Scanner OTHER Final Result * VANCOMYCIN (01/22/2024 10:15 PM CDT) VANCOMYCIN <4.0 ug/mL 01/22/2024 10:48 PM CDT [facility] Comment:No Reference Range D efined. DATE OF LAST DOSE,RANDOM 01/20/2024 01/22/2024 10:48 PM CDT [facility] TIME OF LAST DOSE,RANDOM 6:00 PM 01/22/2024 10:48 PM CDT [facility] Blood BLOOD SPECIMEN / Unknown Butterfly / Unknown 01/22/2024 10:15 PM CDT 01/22/2024 10:21 PM CDT Jared Gusman MD CHEMISTRY Final Res ult [facility] [address] [place] [address], [place] * SCAN-CARDIAC STRIP (01/22/2024 5:51 PM [...] Tech: MSR Referring MD: SOPHIE VILLAFANA Site: [facility] Reading Location: [facility] Patient Location: Inpatient. Procedure: 2D, Color [...] . This study was interpreted by an [facility] accredited facility. CC: HIM (med records) [facility], Med/Surg - IP [facility]. Final Procedure Note Anders Em MD - 01/20/2024 ECHOCARDIOGRAM ANDERS BROOKS : 1935 89 years Study Date: 01/20/2024 12:11:40 PM Gender: M BP: 149/84 mmHg Height: 165.00 cm BSA: 2.09 m Weight: 103.00 kg Tech: MSR Referring MD: SOPHIE VILLAFANA Site: [facility] Reading Location: Mobile JOSÉ MANUEL [...] . This study was interpreted by an [facility] accredited facility. CC: [place] (med records) [facility], Med/Surg - IP [facility]. Final us Sophie Villafana MD ECHO ORD Final Result from Last 3 Months Insurance MEDICARE PB ONLY MEDICARE PART B HB ONLY [facility] MEDICARE PART A HB ONLY MEDICARE PART A HB ONLY MEDICARE PART B HB ONLY [facility] Advance Directives * DNR (Latest Code Status [...] 11:58 AM 01/04/2009 1:38 PM Care Teams Boxing Promoter Relationship Specialty Start Date End Date [place] [address] [address] PCP - General Family Practice 03/16/22
[2024-04-05 01:55] LABS: NT Pro B Type NatriureticPept* 5050 pg/mL; Troponin I* 0.05 ng/mL (0.01-0.04)
[2024-04-05] MEDS: FUROSEMIDE 10 MG/ML inj 40 MG IVP ×3 (03:11→09:28)
--- NOTE | 2024-04-05 03:21 | W.PM.TELEH&P ---
Telehealth- H&P: HPI History of Present Illness Date Seen: 04/05/24 Chief complaint: shortness of breath Narrative: Walter Brooks is seen as an Interactive Telehealth visit. 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 Patient reported that he has been having worsening dyspnea for the past 3 weeks. He has not had significant lower extremity swelling. He takes his torsemide as prescribed which is 20 mg a day, sometimes takes an additional 20 mg but does not have significant urine output. He has chronic chest pain. He has a dry cough. Over the last several days he has had some chills. He has not any myalgias. He has not had nausea vomiting or diarrhea. He is not having the lightheadedness or dizziness. In the ER his chest x-ray showed increased pulmonary vascular congestion as well as a large left-sided pleural effusion. He was also found to be positive for COVID. Review of Systems Status of ROS: Reports: 10 or more systems reviewed and unremarkable except as noted in History and below [facility] Medical History (Updated 04/05/24 @ 03:27 by Karlos Kc MD) Elevated troponin ?R79.89 - Other specified abnormal findings of blood chemistry (ICD-10) AAA (abdominal aortic aneurysm) ?I71.40 - Abdominal aortic aneurysm, without rupture, unspecified (ICD-10) Aortic stenosis, severe ?I35.0 - Nonrheumatic aortic (valve) stenosis (ICD-10) Atrial fibrillation with RVR ?I48.91 - Unspecified atrial fibrillation (ICD-10) COPD (chronic obstructive pulmonary disease) ?J44.9 - Chronic obstructive pulmonary disease, unspecified (ICD-10) Morbid obesity ?E66.01 - Morbid (severe) obesity due to excess calories (ICD-10) BPH (benign prostatic hyperplasia) ?N40.0 - Benign prostatic hyperplasia without lower urinary tract symptoms (ICD-10) 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 quit smoking >20 years ago What is your current living situation?: I presently have a place to live Problems where you live: no known problems Problems where you live details: N/A In the past 12 months, utilities in danger of being shut off: no In past 12 months, lack of transportation kept you from medical appts, meetings, work, or getting things needed for daily living: no In the past 12 mos, have been you worried that your food would run out before you had money to buy more?: never true In the past 12 mos, the food you bought just didn't last and you didn't have money to buy more?: never true Highest level of school completed/degree received: 12th grade, no diploma Smoking Status: Former smoker What tobacco products do you use: cigarettes Smoking quit date/years: >15 years ago Second hand tobacco smoke exposure: No How often do you have a drink containing alcohol: never How often do you have six or more drinks on one occasion: Never AUDIT-C Alcohol total score: 0 Non-prescribed substance use: denies use How often does anyone, including family, friends and others, physically hurt you: never How often does anyone, including family, friends and others, insult or talk down to you: never How often does anyone, including family, friends and others, threaten you with harm: never How often does anyone, including family, friends and others, scream or curse at you: never service: No Meds Home Medications and Allergies Home Medications ?Medication ?Instructions ?Recorded ?Confirmed ?Type albuterol sulfate 90 mcg/actuation 1 - 2 puff inhalation Q4H PRN 11/18/23 01/19/24 History aerosol inhaler wheezing chlorthalidone 25 mg tablet 12.5 mg PO DAILY 11/18/23 01/19/24 History clopidogrel 75 mg tablet 75 mg PO DAILY 11/18/23 01/19/24 History ipratropium 0.5 mg-albuterol 3 mg 3 ml inhalation QID PRN 11/18/23 01/19/24 History (2.5 mg base)/3 mL nebulization soln losartan 50 mg tablet 50 mg PO DAILY 11/18/23 01/19/24 History metoprolol succinate 25 mg 25 mg PO DAILY 11/18/23 01/19/24 History tablet,extended release 24 hr pravastatin 80 mg tablet 80 mg PO HS 11/18/23 01/20/24 History tamsulosin 0.4 mg capsule 0.8 mg PO DAILY 11/18/23 01/19/24 History triamcinolone acetonide 0.5 % 1 applic topical Q8H PRN itching 11/18/23 01/19/24 History topical cream umeclidinium 62.5 mcg/actuation 1 inh inhalation DAILY 11/18/23 01/19/24 History blister powder for inhalation (Incruse Ellipta) torsemide 20 mg tablet 20 mg PO QAM 01/19/24 01/19/24 History Allergies Allergy/AdvReac Type Severity Reaction Status Date / Time No Known Drug Allergies Allergy Verified 01/19/24 16:33 Exam Narrative Exam Narrative: Physical Exam GENERAL: ?vital signs reviewed, , Chronically ill-appearing HEENT: pupils are equal round, extraocular movements are grossly within normal limits and oral mucosa is dry NECK: Supple without lymphadenopathy or thyromegaly according to nursing staff examination observation. There is a lipoma on the left side of the neck HEART: Regular rate and rhythm without 2 out of 6 systolic murmur LUNGS: bibasilar rales with decreased breath sounds on the left base ABDOMEN: Observation from nurse assisted exam, abdomen appears soft, nontender, and nondistended with Positive bowel sounds noted. EXTREMITIES: Strength and sensation is observed to be grossly within normal limits in the upper and lower extremities.? No focal strength deficit is observed. SKIN:? Observed warm and dry with color normal Const Vital Signs, click to edit/add: Vital Signs - 24 hr 04/05/24 00:48 04/05/24 02:21 04/05/24 02:22 Temperature 99.4 F Pulse Rate [Pulse Oximeter] Pulse Rate [Right Pulse Oximeter] 100 Respiratory Rate 22 Blood Pressure [Left Upper Arm] 164/104 H Blood Pressure [Right Arm] Pulse Oximetry 89 89 94 Oxygen Delivery Method Room Air Room Air Oxygen Flow Rate 04/05/24 02:27 04/05/24 02:47 04/05/24 02:54 Temperature 99.4 F 99.4 F Pulse Rate [Pulse Oximeter] 110 H Pulse Rate [Right Pulse Oximeter] 105 H 105 H Respiratory Rate 22 22 28 H Blood Pressure [Left Upper Arm] 154/84 H 154/84 H Blood Pressure [Right Arm] 171/95 H Pulse Oximetry 94 92 Oxygen Delivery Method Room Air Nasal Cannula Oxygen Flow Rate 1 04/05/24 02:54 Temperature Pulse Rate [Pulse Oximeter] Pulse Rate [Right Pulse Oximeter] Respiratory Rate 28 H Blood Pressure [Left Upper Arm] Blood Pressure [Right Arm] Pulse Oximetry 92 Oxygen Delivery Method Nasal Cannula Oxygen Flow Rate 1 Hospitalist - H&P: Result Labs Labs: Short CBC 04/05/24 Range/Units 01:20 WBC 8.21 (4.50-11.00) K/uL Hgb 12.9 L (13.5-17.5) gm/dL Hct 39.9 (37.0-53.0) % Plt Count 191 (140-440) K/uL BMP 04/05/24 01:20 Sodium 136 Potassium 4.4 Chloride 100 Carbon Dioxide 26 BUN 34 H Creatinine 2.0 H Glucose 131 H Calcium 8.4 Cardiac Enzymes 04/05/24 Range/Units 01:20 Troponin I 0.05 H (0.01-0.04) ng/mL Assessment and Plan Assessment and plan (1) COVID-19: Status: Acute (2) AAA (abdominal aortic aneurysm): Problem comment: 2008 had AAA surgery at [facility]. On this admission has a 5.8 cm suprarenal abdominal aortic aneurysm noted Status: Acute (3) Aortic stenosis, severe: Problem comment: heart failure likely due to aortic stenosis primarily. Likely needs consideration of TAVR versus palliative care/hospice. Multiple severe comorbidities Status: Acute (4) Atrial fibrillation with RVR: Problem comment: Echo shows EF of 59 % and severe , rate control and anticoagulate with apixaban. Requiring both metoprolol and diltiazem for rate control Status: Acute (5) Acute diastolic heart failure with preserved ejection fraction: Problem comment: Echocardiogram shows preserved ejection fraction with severe aortic stenosis. Now with AFib contributing to heart failure. 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 -A1C 6.2% 01/20/24 -diet managed Status: Chronic (7) HTN (hypertension): Problem comment: -losartan, continue Status: Chronic (8) COPD (chronic obstructive pulmonary disease): Problem comment: Has had minimal wheezing during this hospital stay. Status: Chronic (9) CKD (chronic kidney disease) stage 4, GFR 15-29 ml/min: Problem comment: Cr trend: 1.2 in 2020 -> 1.4 in 2021 -> 1.6 in 2022 -> 1.8 in early 2023 -> 2.6-2.9 in . The jump this year was felt to be secondary to adding toresmide in October, progressive CHF/Aortic stenosis. pt would not want dialysis monitor electrolytes; aleve pulmonary congestion/dyspnea [facility] ([facility]) Richard Fermin MD Status: Chronic (10) Morbid obesity: Status: Chronic (11) Acute respiratory failure: Status: Acute Plan Acute respiratory failure with hypoxia Large left pleural effusion Acute pulmonary edema Acute on chronic diastolic heart failure with preserved ejection fraction Will give a total of 80 mg of Lasix, 40 mg given in the ER, additional 40 mg now and follow urine output Ideally patient would benefit from a Lasix drip but apparently not able to do it at [facility] Would hold losartan to give initial blood pressure room for diuresis, patient is unlikely to tolerate any hypotension due to critical aortic stenosis Needs to continue to follow-up with cardiology for consideration of valve replacement 1800 mL fluid restriction Daily weights Recommend thoracentesis for left pleural effusion Paroxysmal atrial fibrillation Not on anticoagulation Continue metoprolol when verified COPD Does not appear to have acute exacerbation Continue home meds when verified COVID-19 I think patient's hypoxia is most likely related to volume overload rather than COVID this so we will avoid steroids for now due to risk of worsening his volume overload Given renal dysfunction patient is not a good candidate for remdesivir Hypertension Continue home meds when verified Hyperlipidemia Continue statin DNR/DNI confirmed on admission Subcu heparin for DVT prophylaxis Prior to admission home medications that were felt to be needed immediately have been ordered. The remainder of the home medications will await pharmacy reconciliation and will be ordered by the attending provider in the a.m. Telehealth Visit: Today's History and Physical is provided via interactive telehealth by Dr. Karlos Kc MD. Patient is located at [facility]. Provider is located at [employer]. Nursing staff assisted with the patient's exam. The visit being done today meets criteria for a telehealth visit and the patient or patients parent/guardian is aware the visit is a telehealth visit. Start Time: 253 End Time: 310 Medical Complexity: High ~~~~~~~~~~~~~~~~ Dr. Karlos Kc ~~~~~~~~~~~~~~~~ Disclaimer: This note may contain dictation using voice recognition software. As a result, there may be errors that have gone undetected. Please consider this when interpreting information found in this note. Telehealth: Statement Statement Telehealth Visit: Today's History and Physical is provided via interactive telehealth by Karlos Kc MD.? Patient is located at [facility].? Provider is located at [employer].? Nursing staff assisted with the patient's exam. The visit being done today meets criteria for a telehealth visit and the patient or patient?s parent/guardian is aware the visit is a telehealth visit.
--- NOTE | 2024-04-05 05:37 | PC.NURSE ---
Mahsa FLORIAN spoke with Dr Montague post fall.... since the patient reports that he did not hit his head, Per Dr Montague we will continue to monitor. Neuros are at baseline from my first assessment post fall.
--- NOTE | 2024-04-05 07:06 | PC.NURSE ---
Admission- 0700: The patient presents as A&O. Severe SOB with any small amount of activity. On 1.5 N/C. Tele is arrhythmia w/tachycardia. No reports of pain. VS noted to be HTN. @400 the patient was found to be down on the ground by other staff (see incident report). MD was made aware of fall. VS htn after this, assisted back into bed. The patient reports not hitting his head and states that nothing hurts. Call light within reach and alarms are on. Teri FLORIAN BSN
--- NOTE | 2024-04-05 07:30 | ED.SOB ---
HPI - SOB/Dyspnea General Date Seen: 04/05/24 Chief Complaint: Shortness of Breath/Dyspnea Stated Complaint: shortness of breath Time Seen by Provider: 04/05/24 00:57 Source: patient Mode of arrival: EMS Limitations: no limitations History of Present Illness HPI Narrative: Patient is an 89-year-old chronically ill male who was brought in during the night with worsening shortness of breath. He tells me that this has been going on for the past two months and that tonight he finally just got sick of it. Later he describes chills and shortness of breath for the past couple of days. He has been short of breath to the point where he thought he might pass out. 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 He had a recent stay at [facility] where they discussed TAVR, initially it was recommended, later he states that they changed their mind. He recently had some worsening edema and his torsemide dose was increased. He does not believe that the diuretic makes him urinate. Related Data Home Medications ?Medication ?Instructions ?Recorded ?Confirmed albuterol sulfate 90 mcg/actuation 1 - 2 puff inhalation Q4H PRN 11/18/23 04/05/24 aerosol inhaler wheezing ipratropium 0.5 mg-albuterol 3 mg 3 ml inhalation QID PRN 11/18/23 04/05/24 (2.5 mg base)/3 mL nebulization soln pravastatin 80 mg tablet 80 mg PO HS 11/18/23 04/05/24 tamsulosin 0.4 mg capsule 0.8 mg PO DAILY 11/18/23 04/05/24 triamcinolone acetonide 0.5 % 1 applic topical BID PRN itching 11/18/23 04/05/24 topical cream umeclidinium 62.5 mcg/actuation 1 inh inhalation DAILY 11/18/23 04/05/24 blister powder for inhalation (Incruse Ellipta) acetaminophen 500 mg tablet 1,000 mg PO Q6H PRN 04/05/24 04/05/24 apixaban 2.5 mg tablet (Eliquis) 2.5 mg PO BID 04/05/24 04/05/24 metoprolol succinate 50 mg 50 mg PO DAILY 04/05/24 04/05/24 tablet,extended release 24 hr torsemide 10 mg tablet 10 mg PO DAILY 04/05/24 04/05/24 Allergies Allergy/AdvReac Type Severity Reaction Status Date / Time No Known Drug Allergies Allergy Verified 01/19/24 16:33 Review of Systems Narrative: He has chronic chest pain and shortness of breath. He is fatigued. No GI or concerns. He denies medication side effects. Review of systems is all other areas is noted to be negative. [facility] Medical History (Updated 04/05/24 @ 18:05 by Luis Carlos Xavier MD) Elevated troponin ?R79.89 - Other specified abnormal findings of blood chemistry (ICD-10) AAA (abdominal aortic aneurysm) ?I71.40 - Abdominal aortic aneurysm, without rupture, unspecified (ICD-10) Aortic stenosis, severe ?I35.0 - Nonrheumatic aortic (valve) stenosis (ICD-10) Atrial fibrillation with RVR ?I48.91 - Unspecified atrial fibrillation (ICD-10) COPD (chronic obstructive pulmonary disease) ?J44.9 - Chronic obstructive pulmonary disease, unspecified (ICD-10) Morbid obesity ?E66.01 - Morbid (severe) obesity due to excess calories (ICD-10) BPH (benign prostatic hyperplasia) ?N40.0 - Benign prostatic hyperplasia without lower urinary tract symptoms (ICD-10) 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 quit smoking >20 years ago What is your current living situation?: I presently have a place to live Problems where you live: no known problems Problems where you live details: none In the past 12 months, utilities in danger of being shut off: no In past 12 months, lack of transportation kept you from medical appts, meetings, work, or getting things needed for daily living: no In the past 12 mos, have been you worried that your food would run out before you had money to buy more?: never true In the past 12 mos, the food you bought just didn't last and you didn't have money to buy more?: never true Highest level of school completed/degree received: 12th grade, no diploma Smoking Status: Former smoker What tobacco products do you use: cigarettes Smoking quit date/years: >15 years ago Second hand tobacco smoke exposure: No How often do you have a drink containing alcohol: never How often do you have six or more drinks on one occasion: Never AUDIT-C Alcohol total score: 0 Non-prescribed substance use: denies use How often does anyone, including family, friends and others, physically hurt you: never How often does anyone, including family, friends and others, insult or talk down to you: never How often does anyone, including family, friends and others, threaten you with harm: never How often does anyone, including family, friends and others, scream or curse at you: never service: No Exam Narrative: Exam Narrative: Vitals noted. He was hypoxic on room air but his sats rise into the mid 90s with 3 L. HEENT: Conjunctiva clear. Tympanic membranes are pearly white bilaterally. Posterior pharynx is clear without erythema or exudate. Neck is supple without adenopathy, thyromegaly, carotid bruit. Lungs: Diminished, particularly at the left base. No wheezing. Coarse rhonchi throughout the left lung. Heart: Irregularly irregular rate and rhythm with a grade 3/6 systolic murmur. Abdomen: Soft and nontender. No guarding, rigidity, rebound. Bowel sounds are normal. No palpable masses. Extremities: No cyanosis or edema. Good distal pulses. 1+ edema. Skin: No abnormalities noted of the exposed skin. Neurologic: Awake, alert, fully oriented. Neurologic exam is nonfocal. Const: Vital Signs, click to edit/add: Vital Signs - 24 hr 04/05/24 00:48 04/05/24 02:21 04/05/24 02:22 Temperature 99.4 F Pulse Rate [Pulse Oximeter] Pulse Rate [Right Pulse Oximeter] 100 Respiratory Rate 22 Blood Pressure [Le ft Upper Arm] 164/104 H Blood Pressure [Ri ght Arm] Pulse Oximetry 89 89 94 Oxygen Delivery Me thod Room Air Room Air Oxygen Flow Rate 04/05/24 02:27 04/05/24 02:47 04/05/24 02:54 Temperature 99.4 F 99.4 F 100.8 F H Pulse Rate [Pulse Oximeter] 110 H Pulse Rate [Right Pulse Oximeter] 105 H 105 H Respiratory Rate 22 22 28 H Blood Pressure [Le ft Upper Arm] 154/84 H 154/84 H Blood Pressure [Ri ght Arm] 171/95 H Pulse Oximetry 94 92 Oxygen Delivery Me thod Room Air Nasal Cannula Oxygen Flow Rate 1 04/05/24 02:54 Temperature Pulse Rate [Pulse Oximeter] Pulse Rate [Right Pulse Oximeter] Respiratory Rate 28 H Blood Pressure [Le ft Upper Arm] Blood Pressure [Ri ght Arm] Pulse Oximetry 92 Oxygen Delivery Me thod Nasal Cannula Oxygen Flow Rate 1 Course Course ED Course: Patient is seen and examined. Initial EKG shows atrial fibrillation with a rate of 113. Sats are normal on 3 L by nasal cannula. Chest x-ray shows a large left-sided pleural effusion as well as pulmonary vascular congestion. CBC shows a white blood count of 8200 with hemoglobin of 12.9. Basic metabolic panel is normal other than a BUN of 34 and a creatinine of 2.4. BNaP is 5050. Troponin is 0.05. His COVID swab is positive. Reevaluation(s) Reevaluation #1: His given Lasix 40 mg IV. With his hypoxia he will need to be admitted. Transferred to [facility] is not an option as they are on divert. I spoke with the ehospitalist who kindly agrees to admit him for further workup. Vital Signs Vital signs: Initial Vital Signs Respiratory Effort Normal, Spontaneous, Non-Labored 04/05/24 00:44 Respiratory Depth Normal 04/05/24 00:44 Respiratory Pattern Normal 04/05/24 00:44 Vital Signs Temperature 99.4 F 04/05/24 00:48 Pulse Rate 100 04/05/24 00:48 Respiratory Rate 22 04/05/24 00:48 Blood Pressure 164/104 H 04/05/24 00:48 Pulse Oximetry 89 04/05/24 00:48 Oxygen Delivery Method Room Air 04/05/24 00:48 Temperature 99.2 F 04/07/24 00:37 Pulse Rate 102 H 04/07/24 00:37 Respiratory Rate 20 04/07/24 00:37 Blood Pressure 128/76 04/07/24 00:37 Pulse Oximetry 91 04/07/24 00:37 Oxygen Delivery Method Room Air 04/07/24 00:37 Oxygen Flow Rate 1 04/06/24 15:00 Medications Administered Medications: Generic Name Dose Route Start Last Admin Trade Name Freq PRN Reason Stop Dose Admin Albuterol/Ipratropium 1 neb 04/05/24 09:00 04/06/24 21:14 Iprat-Albut 0.5-2.5 Mg/3 Ml Neb IH 1 neb QID ERIC Administration Apixaban 2.5 mg 04/05/24 09:00 04/06/24 21:14 Apixaban 5 Mg Tablet PO 2.5 mg BID ERIC Administration Furosemide 80 mg 04/05/24 16:00 04/06/24 17:39 Furosemide 10 Mg/Ml Inj IVP 80 mg BID@08,16 ERIC Administration Metoprolol Succinate 50 mg 04/05/24 09:00 04/06/24 09:08 Metoprolol Succinate (Xl) 50 Mg Tab PO 50 mg DAILY ERIC Administration Umeclidinium [ 1 inhalation 04/05/24 09:00 04/06/24 09:09 Incruse Ellipta] 62. IH Not Given 5 Mcg/Actuation DAILY ERIC Pravastatin Sodium 80 mg 04/05/24 21:00 04/06/24 21:13 Pravastatin Sodium 20 Mg Tablet PO 80 mg HS ERIC Administration Sodium Chloride 5 ml 04/05/24 09:00 04/06/24 21:14 Sodium Chloride 0.9 % (Flush) 10 Ml Syringe IVF 5 ml BID ERIC Administration Tamsulosin HCl 0.8 mg 04/05/24 09:00 04/06/24 09:08 Tamsulosin Hcl 0.4 Mg Capsule PO 0.8 mg DAILY ERIC Administration Discontinued Medications Generic Name Dose Route Start Last Admin Trade Name Glen PRN Reason Stop Dose Admin Furosemide 40 mg 04/05/24 02:36 04/05/24 03:11 Furosemide 10 Mg/Ml Inj IVP 04/05/24 02:37 40 mg ONCE ONE Administration Furosemide 40 mg 04/05/24 03:11 04/05/24 03:25 Furosemide 10 Mg/Ml Inj IVP 04/05/24 03:12 40 mg ONCE ONE Administration Furosemide 40 mg 04/05/24 08:03 04/05/24 09:28 Furosemide 10 Mg/Ml Inj IVP 04/05/24 08:04 40 mg ONCE ONE Administration Potassium Chloride 20 meq 04/06/24 17:12 04/06/24 17:39 Potassium Chloride 10 Meq Capsule Er PO 04/06/24 17:13 20 meq ONCE ONE Administration MDM - SOB/Dyspnea Lab Data Labs: Lab Results 04/05/24 04/05/24 Range/Units 00:45 01:20 WBC 8.21 (4.50-11.00) K/uL RBC 4.31 (4.30-5.90) m/uL Hgb 12.9 L (13.5-17.5) gm/dL Hct 39.9 (37.0-53.0) % MCV 93 (80-100) fL MCH 30 (26-34) pg MCHC 32 (32-36) gm/dL RDW Coeff of Sissy 12.5 (11.5-15.5) % Plt Count 191 (140-440) K/uL Neut % (Auto) 87.0 H (42.0-72.0) % Lymph % (Auto) 5.0 L (20-44) % Clarke % (Auto) 7.2 (0.0-11.0) % Eos % (Auto) 0.6 (0.0-7.0) % Baso % (Auto) 0.1 (0.0-3.0) % Neut # (Auto) 7.10 H (1.7-7.0) K/uL Lymph # (Auto) 0.40 L (0.90-2.90) K/uL Clarke # (Auto) 0.60 (0.00-0.90) K/UL Eos # (Auto) 0.05 (0.00-0.50) K/uL Baso # (Auto) 0.01 (0.00-0.30) K/uL Abs Immat Gran (auto) 0.01 (0.00-0.30) K/uL Imm/Tot Granulo (auto) 0.1 % Sodium 136 (135-149) mmol/L Potassium 4.4 (3.6-5.1) mmol/L Chloride 100 (96-114) mmol/L Carbon Dioxide 26 (20-32) mmol/L Anion Gap 10 (7-15) mEq/L BUN 34 H (7-30) mg/dL Creatinine 2.0 H (0.5-1.5) mg/dL Estimated Creat Clear 22.21 Estimated GFR 32 ml/min Glucose 131 H (60-115) mg/dL Calcium 8.4 (8.4-10.6) mg/dL Troponin I 0.05 H (0.01-0.04) ng/mL NT-Pro-B Natriuret Pep 5050 pg/mL SARS-CoV-2 Ag (Rapid) POSITIVE A (Negative) Discharge Plan Discharge Clinical Impression: Congestive heart failure, Aortic stenosis, CKD (chronic kidney disease) stage 4, GFR 15-29 ml/min, COVID-19 Patient Disposition: Admitted As Observation Condition: Guarded
[2024-04-05] MEDS: SODIUM CHLORIDE 0.9 % (FLUSH) 10 ML SYRINGE 5 ML IVF ×2 (09:28→22:28)
[2024-04-05] MEDS: TAMSULOSIN HCL 0.4 MG CAPSULE 0.8 MG PO (09:57)
[2024-04-05] MEDS: METOPROLOL SUCCINATE (XL) 50 MG TAB PO (09:57)
[2024-04-05] MEDS: IPRAT-ALBUT 0.5-2.5 MG/3 ML NEB 1 NEB IH ×3 (09:57→22:27)
[2024-04-05] MEDS: APIXABAN 5 MG TABLET 2.5 MG PO ×2 (09:58→22:25)
--- NOTE | 2024-04-05 13:38 | NUTR.NU ---
Nutrition screen initiated related to [facility] for weight loss and eating poorly. Height 65, weight 210 lbs, BMI 35. Diet Heart Healthy with 1800 mL fluid restriction. Weight at 01/21/24 223 lbs, down 13 lbs or 5.8% in 2 1/2 months, not a significant weight loss. Patient admit with covid with complicated history including but not limited to abdominal aortic aneurysm; atrial fib., Type 2 DM with CKD, COPD. Labs reviewed, improved, including sodium now within normal limits. Patient diet education at 01/20/24 admit. Per nursing patient had a late breakfast. Intake recorded at 100%. Patient in therapy and not available to visit at this time. Monitor diet tolerance and intake. Follow up as needed.
[2024-04-05] MEDS: FUROSEMIDE 10 MG/ML inj 80 MG IVP (16:40)
[2024-04-05 16:47] LABS: Chloride* 96 mmol/L (96-114)
[2024-04-05 16:48] LABS: Potassium* 3.6 mmol/L (3.6-5.1); Sodium* 133 mmol/L (135-149)
[2024-04-05 16:50] LABS: Creatinine* 2.4 mg/dL (0.5-1.5); Est. Creatinine Clearance* 17.81; Estimated Glomerular Filt Rate 25 ml/min
[2024-04-05 16:51] LABS: Anion Gap 12 mEq/L (7-15); Blood Urea Nitrogen* 34 mg/dL (7-30); Calcium* 8.4 mg/dL (8.4-10.6); Carbon Dioxide* 25 mmol/L (20-32); Glucose* 109 mg/dL (60-115)
--- NOTE | 2024-04-05 17:52 | PM.IMPN1 ---
Progress Note: A&P Assessment and plan (1) Acute respiratory failure: Problem details: Hypoxic respiratory failure appears to be due to worsening congestive heart failure primarily. This is not appear to be COVID pneumonia. The heart failure is a combination of his severe aortic stenosis and now the new development of reduced ejection fraction. Echocardiogram from December showed ejection fraction of 59% now in the range of 30-35%. Status: Acute (2) COVID-19: Status: Acute (3) Acute exacerbation of chronic heart failure: Problem details: Primarily due to severe aortic stenosis. Status: Acute (4) Aortic stenosis, severe: Problem details: heart failure likely due to aortic stenosis primarily. Likely needs consideration of TAVR versus palliative care/hospice. Multiple severe comorbidities Status: Acute (5) Heart failure with reduced ejection fraction: Problem details: Newly developed reduced ejection fraction. Status: Acute (6) Palliative care encounter: Problem details: I reviewed with patient the difficulty of managing his heart failure with reduced ejection fraction and severe aortic stenosis. I indicated that without a TAVR he would likely continue to have significant dyspnea and recurrent hospitalizations. I offered him the option of hospice. He did not seem interested in that at this time. He would like medical treatment to feel better but wants no intervention such as TAVR or even thoracentesis Status: Acute (7) Pleural effusion, left: Problem details: This is likely due to heart failure. Patient is declining thoracentesis for diagnostic or therapeutic purposes. Status: Acute Plan Continue in hospital for medical management of heart failure. Patient is quite ill in this is likely to take 3-4 days to get him back to a level where he can return home with his . Poor prognosis for staying out of the hospital. Recommend hospice. Time Spent With Patient Total time spent: Total time spent today is 70 minutes in reviewing outside records, discussion of current health status, discussion of palliative care. Subjective Date Seen: 04/05/24 Interval history: 89-year-old male admitted to the hospital with worsening dyspnea over the past few weeks. Recently he has had a sense of chills and is developed some cough. In the emergency department he was diagnosed with COVID and heart failure exacerbation. Patient is well known to me with a history of heart failure with critical aortic stenosis, stage 4 kidney disease, type 2 diabetes, AAA, COPD, atrial fibrillation and flutter. I last took care of him at the end of December 2023 when he was not responding well to treatment of heart failure and pneumonia and AFib. He was transferred to [facility] for ongoing cardiology care and consideration of TAVR for his critical aortic stenosis. After discussion at [facility] the decision was made not to proceed with TAVR. Patient reports he has been doing okay for since then but has had increasing dyspnea over the past few weeks. Chills and possibly fever more recently. He has been exposed to COVID. Exam Narrative: Exam Narrative: He is alert and appears in mild respiratory distress with supplemental oxygen per nasal cannula. He is able to carry on a conversation about his current status and events that happened at [facility] 2 months ago. Respirations are clear to auscultation on the right except a few crackles at the base. On the left he has absent breath sounds up 1/2 to 2/3 with a few crackles above that. No significant wheezing. Cardiovascular: S1, S2 with 2 to 3/6 harsh systolic ejection murmur heard best at the right upper sternal border. Abdomen is soft without tenderness. Extremities with 1+ edema. Const: Vital Signs, click to edit/add: Vital Signs - 24 hr 04/05/24 00:48 04/05/24 02:21 04/05/24 02:22 Temperature 99.4 F Pulse Rate Pulse Rate [Pulse Oximeter] Pulse Rate [Right Pulse Oximeter] 100 Respiratory Rate 22 Blood Pressure [Le ft Upper Arm] 164/104 H Blood Pressure [Ri ght Arm] Pulse Oximetry 89 89 94 Oxygen Delivery Me thod Room Air Room Air Oxygen Flow Rate 04/05/24 02:27 04/05/24 02:47 04/05/24 02:54 Temperature 99.4 F 99.4 F 100.8 F H Pulse Rate Pulse Rate [Pulse Oximeter] 110 H Pulse Rate [Right Pulse Oximeter] 105 H 105 H Respiratory Rate 22 22 28 H Blood Pressure [Le ft Upper Arm] 154/84 H 154/84 H Blood Pressure [Ri ght Arm] 171/95 H Pulse Oximetry 94 92 Oxygen Delivery Me thod Room Air Nasal Cannula Oxygen Flow Rate 1 04/05/24 02:54 04/05/24 03:10 04/05/24 04:20 Temperature Pulse Rate Pulse Rate [Pulse Oximeter] 110 H Pulse Rate [Right Pulse Oximeter] Respiratory Rate 28 H 30 H Blood Pressure [Le ft Upper Arm] Blood Pressure [Ri ght Arm] 183/104 H Pulse Oximetry 92 91 88 Oxygen Delivery Me thod Nasal Cannula Nasal Cannula Oxygen Flow Rate 1 2 04/05/24 04:30 04/05/24 06:00 04/05/24 07:00 Temperature 100.2 F H Pulse Rate 107 H Pulse Rate [Pulse Oximeter] 107 H 107 H Pulse Rate [Right Pulse Oximeter] Respiratory Rate 28 H 32 H Blood Pressure [Le ft Upper Arm] Blood Pressure [Ri ght Arm] 159/117 H 131/93 H Pulse Oximetry 90 93 Oxygen Delivery Me thod Nasal Cannula Room Air Oxygen Flow Rate 2 04/05/24 07:00 04/05/24 07:00 04/05/24 11:00 Temperature 98.4 F Pulse Rate 103 H Pulse Rate [Pulse Oximeter] 107 H 102 H Pulse Rate [Right Pulse Oximeter] Respiratory Rate 32 H 28 H Blood Pressure [Le ft Upper Arm] Blood Pressure [Ri ght Arm] 138/93 H Pulse Oximetry 97 Oxygen Delivery Me thod Nasal Cannula Oxygen Flow Rate 1 Documenting provider has reviewed patient's vital signs: yes Labs Labs: Laboratory Results - last 24 hr 04/05/24 04/05/24 04/05/24 00:45 01:20 16:22 WBC 8.21 RBC 4.31 Hgb 12.9 L Hct 39.9 MCV 93 MCH 30 MCHC 32 RDW Coeff of Sissy 12.5 Plt Count 191 Neut % (Auto) 87.0 H Lymph % (Auto) 5.0 L Saline % (Auto) 7.2 Eos % (Auto) 0.6 Baso % (Auto) 0.1 Neut # (Auto) 7.10 H Lymph # (Auto) 0.40 L Saline # (Auto) 0.60 Eos # (Auto) 0.05 Baso # (Auto) 0.01 Abs Immat Gran (auto) 0.01 Imm/Tot Granulo (auto) 0.1 Sodium 136 133 L Potassium 4.4 3.6 Chloride 100 96 Carbon Dioxide 26 25 Anion Gap 10 12 BUN 34 H 34 H Creatinine 2.0 H 2.4 H Estimated Creat Clear 22.21 17.81 Estimated GFR 32 25 Glucose 131 H 109 Calcium 8.4 8.4 Troponin I 0.05 H NT-Pro-B Natriuret Pep 5050 SARS-CoV-2 Ag (Rapid) POSITIVE A
--- NOTE | 2024-04-05 19:29 | PC.NURSE ---
Pt alert, oriented to self and place, otherwise forgetful. VSS. Bed and chair alarms in place. Pt uses call light appropriately at times, though is forgetful at others. Pt on 1 L O2 when resting as desats noted, otherwise on room air. Pt in bed, appears to be resting, call light within reach.
[2024-04-05] MEDS: PRAVASTATIN SODIUM 20 MG TABLET 80 MG PO (22:26)
[2024-04-06] VITALS (8 sets, daily range): BP systolic 115–163; BP diastolic 72–102; PULSE 61–113; RESP 22–28; TEMP 36.7–37.3; O2SAT 89–97
--- NOTE | 2024-04-06 08:04 | PC.NURSE ---
Shift note ([id number]): Patient pleasant, alert and oriented. Assist of one, walker and gait belt for transfers. Catheter patent at this time and draining straw colored urine. ?
[2024-04-06] MEDS: APIXABAN 5 MG TABLET 2.5 MG PO ×2 (09:08→21:14)
[2024-04-06] MEDS: METOPROLOL SUCCINATE (XL) 50 MG TAB PO (09:08)
[2024-04-06] MEDS: TAMSULOSIN HCL 0.4 MG CAPSULE 0.8 MG PO (09:08)
[2024-04-06] MEDS: FUROSEMIDE 10 MG/ML inj 80 MG IVP ×2 (09:09→17:39)
[2024-04-06] MEDS: SODIUM CHLORIDE 0.9 % (FLUSH) 10 ML SYRINGE 5 ML IVF ×2 (09:09→21:14)
[2024-04-06] MEDS: IPRAT-ALBUT 0.5-2.5 MG/3 ML NEB 1 NEB IH ×4 (09:09→21:14)
--- NOTE | 2024-04-06 16:05 | P.IMPN_ITS ---
Progress Note: A&P Assessment and plan (1) Acute respiratory failure: Problem details: Hypoxic respiratory failure appears to be due to worsening congestive heart failure primarily. This is not appear to be COVID pneumonia. The heart failure is a combination of his severe aortic stenosis and now the new development of reduced ejection fraction. Echocardiogram from December showed ejection fraction of 59% now in the range of 30-35%. Status: Acute (2) COVID-19: Status: Acute (3) Acute exacerbation of chronic heart failure: Problem details: Primarily due to severe aortic stenosis. Status: Acute (4) Aortic stenosis, severe: Problem details: heart failure likely due to aortic stenosis primarily. Likely needs consideration of TAVR versus palliative care/hospice. Multiple severe comorbidities Status: Acute (5) Heart failure with reduced ejection fraction: Problem details: Newly developed reduced ejection fraction. Status: Acute (6) Palliative care encounter: Problem details: I reviewed with patient the difficulty of managing his heart failure with red uced ejection fraction and severe aortic stenosis. I indicated that without a TAVR he would likely continue to have significant dyspnea and recurrent hospitalizations. I offered him the option of hospice. He did not seem interested in that at this time. He would like medical treatment to feel better but wants no intervention such as TAVR or even thoracentesis Status: Acute (7) Pleural effusion, left: Problem details: This is likely due to heart failure. Patient is declining thoracentesis for d iagnostic or therapeutic purposes. Status: Acute Plan 1. Reviewed impression and recommendations with patient 2. Answered patient's questions 3. Patient agreeable to above stated plans and recommendations Time Spent With Patient Total time spent: 45 minutes Subjective Date Seen: 04/06/24 Interval history: 89-year-old male admitted to the hospital with worsening dyspnea over the past few weeks. Recently he has had a sense of chills and is developed some cough. In the emergency department he was diagnosed with COVID and heart failure exa cerbation. Patient is well known to me with a history of heart failure with critical aortic stenosis, stage 4 kidney disease, type 2 diabetes, AAA, COPD, atrial fibrillation and flutter. I last took care of him at the end of December 2023 when he was not responding well to treatment of heart failure and pneumonia and AFib. He was transferred to [facility] for ongoing cardiology care and consideration of TAVR for his critical aortic stenosis. After discussion at [facility] the decision was made not to proceed with TAVR. Patient reports he has been doing okay for since then but has had increasing dyspnea over the past few weeks. Chills and possibly fever more recently. He has been exposed to COVID. Hospital day 2, 04/06/2024. Patient asked me if he can go home. He states he feels improved. Denies dyspnea. Tells me he is eating and drinking. Exam Narrative: Exam Narrative: I examined patient in his hospital room. Appears comfortable, in no acute distress. Hard of hearing but adequate for conversation with adequate vision. Seemingly able to express own needs and wants adequately. Decreased breath sounds left side of the lung compared to the right. Harsh systolic murmur with regular rhythm. Obese abdomen with active bowel sounds, soft, nontender. Trace bilateral lower extremity edema. Const: Vital Signs, click to edit/add: Vital Signs - 24 hr 04/05/24 19:00 04/05/24 22:18 04/05/24 23:00 Temperature 98.1 F 98.7 F Pulse Rate 89 Pulse Rate [Pulse Oximeter] 98 91 Respiratory Rate 24 24 Blood Pressure [Le ft Arm] Blood Pressure [Ri ght Arm] 143/99 H 138/85 Pulse Oximetry 92 95 Oxygen Delivery Me thod Room Air 04/06/24 02:52 04/06/24 02:54 04/06/24 09:00 Temperature 98.1 F Pulse Rate Pulse Rate [Pulse Oximeter] 61 106 H Respiratory Rate 24 24 Blood Pressure [Le ft Arm] Blood Pressure [Ri ght Arm] 132/85 Pulse Oximetry 94 95 Oxygen Delivery Me thod Room Air 04/06/24 09:00 04/06/24 09:39 04/06/24 11:00 Temperature 98.3 F Pulse Rate 113 H Pulse Rate [Pulse Oximeter] 106 H 92 Respiratory Rate 24 28 H Blood Pressure [Le ft Arm] 136/89 Blood Pressure [Ri ght Arm] 139/102 H Pulse Oximetry 91 92 Oxygen Delivery Me thod Room Air Room Air Labs Labs: Laboratory Results - last 24 hr 04/05/24 16:22 Sodium 133 L Potassium 3.6 Chloride 96 Carbon Dioxide 25 Anion Gap 12 BUN 34 H Creatinine 2.4 H Estimated Creat Clear 17.81 Estimated GFR 25 Glucose 109 Calcium 8.4
[2024-04-06 16:45] LABS: Chloride* 92 mmol/L (96-114)
[2024-04-06 16:46] LABS: Potassium* 3.4 mmol/L (3.6-5.1); Sodium* 130 mmol/L (135-149)
[2024-04-06 16:48] LABS: Creatinine* 2.3 mg/dL (0.5-1.5); Est. Creatinine Clearance* 18.59; Estimated Glomerular Filt Rate 27 ml/min
[2024-04-06 16:49] LABS: Anion Gap 11 mEq/L (7-15); Blood Urea Nitrogen* 46 mg/dL (7-30); Calcium* 7.7 mg/dL (8.4-10.6); Carbon Dioxide* 27 mmol/L (20-32); Glucose* 104 mg/dL (60-115)
[2024-04-06 17:13] LABS: Troponin I* 0.08 ng/mL (0.01-0.04)
[2024-04-06] MEDS: POTASSIUM CHLORIDE 10 MEQ CAPSULE ER 20 MEQ PO (17:39)
--- NOTE | 2024-04-06 19:00 | PC.NURSE ---
Nursing Care Hours: [id number] Pt this shift calm and cooperative, alert and oriented in the morning. SpO2 stable on RA while up. After working with PT, pt called nurse in and said help while looking fatigued and weak. Fire Engine Pump Operator checked VS and they were stable. Pt c/o feeling dizzy, SOB and feeling like crap. At first denied chest pain, but after another 45 min, pt called nurse in again stating the feelings have gotten worse and now experiencing chest pain that does not radiate. Pt assisted in bed and EKG done, labs ordered. After about 15min in bed, pt reports decrease chest pain. Fire Engine Pump Operator discussed change of condition with with son in the room and pt son states that at home, pt does is not active at home only walking very short distances as needed. Pt son believes his dad overworked himself during PT. Discussed statement with hospitalist. Tele showing intermittent Afib and sinus arrhythmia, changing from NVR to RVR.
[2024-04-06] MEDS: PRAVASTATIN SODIUM 20 MG TABLET 80 MG PO (21:13)
[2024-04-07] VITALS (10 sets, daily range): BP systolic 109–132; BP diastolic 53–96; PULSE 76–102; RESP 20–28; TEMP 36.7–37.3; O2SAT 90–94
[2024-04-07 06:58] LABS: HCO3 VBG 28 mmol/L (21-28); Lactate* 1.1 mmol/L (0.5-1.9); PCO2 VBG 41 mmHG (40-50); PO2 VBG 47.3 mmHG (25-47); pH VBG 7.445 (7.32-7.43)
[2024-04-07 07:03] LABS: Hematocrit 37.5 % (37.0-53.0); Hemoglobin* 12.4 gm/dL (13.5-17.5); Mean Corpuscular HGB Conc 33 gm/dL (32-36); Mean Corpuscular Hemoglobin 30 pg (26-34); Mean Corpuscular Volume 90 fL (80-100); Platelet Count* 164 K/uL (140-440); Red Blood Count 4.15 m/uL (4.30-5.90); White Blood Count* 6.53 K/uL (4.50-11.00)
[2024-04-07 07:04] LABS: Slide Review Reflex No
--- NOTE | 2024-04-07 07:31 | PC.NURSE ---
Pt is alert and oriented x3. Afebrile. ?Pt denies pain, chest pain, and N/V. SOB is noted with exertion. Pt was on room air for part of shift but O2 stats dropped down to 86-87% and placed back on 1 L via nasal cannula to maintain 88% or higher. Pt?s lopez is patent and draining. Pt is up A1/2 with walker and gait belt, passing gas, and tolerating a regular diet. ??
[2024-04-07 07:45] LABS: Chloride* 93 mmol/L (96-114); Sodium* 131 mmol/L (135-149)
[2024-04-07 07:46] LABS: Potassium* 3.5 mmol/L (3.6-5.1)
[2024-04-07 07:48] LABS: Creatinine* 2.3 mg/dL (0.5-1.5); Est. Creatinine Clearance* 18.59; Estimated Glomerular Filt Rate 27 ml/min
[2024-04-07 07:49] LABS: Anion Gap 11 mEq/L (7-15); Blood Urea Nitrogen* 51 mg/dL (7-30); Carbon Dioxide* 27 mmol/L (20-32); Glucose* 100 mg/dL (60-115); Phosphorus* 4.3 mg/dL (2.5-4.5)
[2024-04-07 07:50] LABS: Calcium* 7.6 mg/dL (8.4-10.6)
[2024-04-07] MEDS: FUROSEMIDE 10 MG/ML inj 80 MG IVP ×2 (08:03→17:09)
[2024-04-07] MEDS: APIXABAN 5 MG TABLET 2.5 MG PO ×2 (08:03→21:09)
[2024-04-07] MEDS: METOPROLOL SUCCINATE (XL) 50 MG TAB PO (08:04)
[2024-04-07] MEDS: TAMSULOSIN HCL 0.4 MG CAPSULE 0.8 MG PO (08:04)
[2024-04-07] MEDS: SODIUM CHLORIDE 0.9 % (FLUSH) 10 ML SYRINGE 5 ML IVF ×3 (08:04→21:09)
[2024-04-07] MEDS: IPRAT-ALBUT 0.5-2.5 MG/3 ML NEB 1 NEB IH ×3 (08:05→21:09)
[2024-04-07 09:24] LABS: Magnesium* 2.2 mg/dL (1.5-2.6)
[2024-04-07 09:34] LABS: NT Pro B Type NatriureticPept* 3320 pg/mL
[2024-04-07 09:41] LABS: Procalcitonin* 0.48 ng/mL (<0.50)
[2024-04-07 09:49] LABS: C Reactive Protein* 17.4 mg/dL (0.5-1.0); Troponin I* 0.08 ng/mL (0.01-0.04)
--- NOTE | 2024-04-07 17:10 | P.IMPN_ITS ---
Progress Note: A&P Assessment and plan (1) Acute respiratory failure: Problem details: Hypoxic respiratory failure appears to be due to worsening congestive heart failure primarily. This is not appear to be COVID pneumonia. The heart failure is a combination of his severe aortic stenosis and now the new development of reduced ejection fraction. Echocardiogram from December showed ejection fraction of 59% now in the range of 30-35%. Status: Acute (2) COVID-19: Status: Acute (3) Acute exacerbation of chronic heart failure: Problem details: Primarily due to severe aortic stenosis. Attempt increase diuresis and monitor response Status: Acute (4) Aortic stenosis, severe: Problem details: heart failure likely due to aortic stenosis primarily. Likely needs consideration of TAVR versus palliative care/hospice. Multiple severe comorbidities Status: Acute (5) Heart failure with reduced ejection fraction: Problem details: Newly developed reduced ejection fraction. Status: Acute (6) Palliative care encounter: Problem details: I reviewed with patient the difficulty of managing his heart failure with reduced ejection fraction and severe aortic stenosis. I indicated that without a TAVR he would likely continue to have significant dyspnea and recurrent ho spitalizations. I offered him the option of hospice. He did not seem interested in that at this time. He would like medical treatment to feel better but wants no intervention such as TAVR or even thoracentesis Status: Acute (7) Pleural effusion, left: Problem details: This is likely due to heart failure. Patient is declining thoracentesis for diagnostic or therapeutic purposes. Status: Acute (8) COPD (chronic obstructive pulmonary disease): Problem details: -Has had minimal wheezing during this hospital stay. -50-75 pack-year history of smoking, quit when he retired from work Status: Chronic (9) Acute and chronic respiratory failure with hypoxia: Problem details: -04/07/2024 on more convinced that his hypoxia is acute on chronic -consider testing for home O2 on 04/08/2024 Status: Acute (10) History of tobacco use disorder: Problem details: -50-75 pack-year history, quit roughly 20 years ago when he retired from work Status: Acute Plan 1. Reviewed impression and recommendations with patient and his son, oJse. Spoke with Jose via telephone while in the patient's room, with telephone on speaker mode. 2. Answered their questions to their satisfaction. 3. Patient and son agree with above stated plans and recommendations. Time Spent With Patient Total time spent: 45 minutes Subjective Date Seen: 04/07/24 Interval history: 89-year-old male admitted to the hospital with worsening dyspnea over the past few weeks. Recently he has had a sense of chills and is developed some cough. In the emergency department he was diagnosed with COVID and heart failure exacerbation. Patient is well known to me with a history of heart failure with critical aortic stenosis, stage 4 kidney disease, type 2 diabetes, AAA, COPD, atrial fibrillation and flutter. I last took care of him at the end of December 2023 when he was not responding well to treatment of heart failure and pneumonia and AFib. He was transferred to [facility] for ongoing cardiology care and consideration of TAVR for his critical aortic stenosis. After discussion at [place] the decision was made not to proceed with TAVR. Patient reports he has been doing okay for since then but has had increasing dyspnea over the past few weeks. Chills and possibly fever more recently. He has been exposed to COVID. Hospital day 2, 04/06/2024. Patient asked me if he can go home. He states he feels improved. Denies dyspnea. Tells me he is eating and drinking. Hospital day 3, 04/07/2024. Discussion with patient reveals he has longstanding tobacco use history. 50-75 pack-year history of smoking, quit when he retired roughly 20 years ago. Continues to require low-flow O2 at this time to maintain saturations greater than 88% at rest. Saturations dropping below 88% while on 2 liters/minute via nasal cannula of O2 with minimal exertion. Exam Narrative: Exam Narrative: Examine him in his hospital room. Appears comfortable. Breath sounds are improved, with some scattered rhonchi but no wheezing or rales Heart tones with regular rhythm. Abdomen benign. Moves all 4 extremities. Const: Vital Signs, click to edit/add: Vital Signs - 24 hr 04/06/24 21:02 04/06/24 23:00 04/06/24 23:00 Temperature 99.2 F Pulse Rate 94 Pulse Rate [Pulse Oximeter] 71 94 Respiratory Rate 22 Blood Pressure [Le ft Arm] Blood Pressure [Ri ght Arm] 115/72 Pulse Oximetry 97 Oxygen Delivery Me thod Room Air Oxygen Flow Rate 04/07/24 00:37 04/07/24 01:56 04/07/24 01:56 Temperature 99.2 F 99.1 F Pulse Rate Pulse Rate [Pulse Oximeter] 102 H 96 Respiratory Rate 20 20 Blood Pressure [Le ft Arm] Blood Pressure [Ri ght Arm] 128/76 124/96 H Pulse Oximetry 91 91 90 Oxygen Delivery Me thod Room Air Nasal Cannula Oxygen Flow Rate 1 04/07/24 07:59 04/07/24 07:59 04/07/24 08:16 Temperature 98.2 F Pulse Rate 97 Pulse Rate [Pulse Oximeter] 76 Respiratory Rate 20 Blood Pressure [Le ft Arm] Blood Pressure [Ri ght Arm] 118/72 Pulse Oximetry 90 90 Oxygen Delivery Me thod Room Air Oxygen Flow Rate 04/07/24 11:47 04/07/24 15:26 04/07/24 15:57 Temperature 98.1 F 99.1 F Pulse Rate 95 Pulse Rate [Pulse Oximeter] 100 91 Respiratory Rate 22 28 H Blood Pressure [Le ft Arm] 132/87 118/53 L Blood Pressure [Ri ght Arm] Pulse Oximetry 92 94 Oxygen Delivery Me thod Room Air Nasal Cannula Oxygen Flow Rate 2 Labs Labs: Laboratory Results - last 24 hr 04/06/24 04/07/24 16:06 06:43 WBC 6.53 RBC 4.15 L Hgb 12.4 L Hct 37.5 MCV 90 MCH 30 MCHC 33 Plt Count 164 VBG pH 7.445 H VBG pCO2 41 VBG pO2 47.3 H VBG HCO3 28 Sodium 131 L Potassium 3.5 L Chloride 93 L Carbon Dioxide 27 Anion Gap 11 BUN 51 H Creatinine 2.3 H Estimated Creat Clear 18.59 Estimated GFR 27 Glucose 100 Lactate 1.1 Calcium 7.6 L Phosphorus 4.3 Magnesium 2.2 Troponin I 0.08 H* 0.08 H* C-Reactive Protein 17.4 H NT-Pro-B Natriuret Pep 3320 Procalcitonin 0.48 TSH 2.760
[2024-04-07] MEDS: PRAVASTATIN SODIUM 20 MG TABLET 80 MG PO (21:09)
[2024-04-08 03:47] VITALS: BP 126/91; PULSE 87; RESP 20; TEMP 37.1; O2SAT 88
--- NOTE | 2024-04-08 06:56 | PC.NURSE ---
Pt is alert and oriented x3. Afebrile. ?Pt denies pain, chest pain, and N/V. SOB is noted with exertion. Pt on2 L via nasal cannula to maintain 90% or higher. Pt?s lopez is patent and draining. Pt is up A1/2 with walker and gait belt, passing gas, and tolerating a regular diet. ??
[2024-04-08 07:00] VITALS: BP 128/79; PULSE 70; PULSE 82; RESP 22; RESP 24; TEMP 36.7; O2SAT 92
[2024-04-08 07:30] VITALS: PULSE 97
[2024-04-08] MEDS: TAMSULOSIN HCL 0.4 MG CAPSULE 0.8 MG PO (08:32)
[2024-04-08] MEDS: METOPROLOL SUCCINATE (XL) 50 MG TAB PO (08:32)
[2024-04-08] MEDS: IPRAT-ALBUT 0.5-2.5 MG/3 ML NEB 1 NEB IH ×2 (08:32→13:40)
[2024-04-08] MEDS: FUROSEMIDE 10 MG/ML inj 80 MG IVP (08:32)
[2024-04-08] MEDS: SODIUM CHLORIDE 0.9 % (FLUSH) 10 ML SYRINGE 5 ML IVF (08:32)
[2024-04-08] MEDS: APIXABAN 5 MG TABLET 2.5 MG PO (08:33)
[2024-04-08 08:45] VITALS: O2SAT 92
[2024-04-08 11:00] VITALS: BP 137/68; PULSE 82; RESP 24; TEMP 36.8; O2SAT 90
--- NOTE | 2024-04-08 15:53 | PC.NURSE ---
Discharge-- Very pleasant and cooperative patient discharged to home via wheelchair with son. Alert and oriented but TELIDA. VSS and pt is afebrile. SPO2 >89% on RA. LS diminished throughout with a few fine crackles noted in right posterior base. Telemetry showed NSR with frequent PACs. Pronounced Murmur. He denied nausea, but refused any food today. Discharge education was provided including diagnosis info, symptoms to report, medications and follow up plan. All questions answered and SL was removed with tip intact.
--- NOTE | 2024-04-08 15:54 | P.DS_ITS ---
DS: Providers Provider Date Seen: 04/08/24 Date of admission: 04/05/24 03:05 Primary care physician: Rodney Vergara MD Admitting Clinician: Eddi Victor MD Consults: 04/05/24 03:10 Consult to Physical Therapy [CONS] Routine Comment: Reason(s) for PT Consult:: Evaluate and Treat Any Restrictions?:: No Restrictions 04/05/24 03:11 Consult to Occupational Therapy [CONS] Routine Comment: Reason(s) for OT Consult:: Evaluate and Treat Any Restrictions?:: No Restrictions 04/08/24 10:43 Consult to Study Abroad Advisor [CONS] Routine Comment: Reason for Consult:: Discharge Planning Needs Attending Physician on discharge: Vimal Nicole MD Date of Discharge: 04/08/24 DS: Diagnosis Discharge Diagnosis (1) Acute and chronic respiratory failure with hypoxia: Status: Acute Problem details: -04/07/2024 I am more convinced that his hypoxia is acute on chronic -3-part home O2 testing confirms need for O2 1 LPM via NC at rest and 3 LPM via NC with activity (2) Acute exacerbation of chronic heart failure: Status: Acute Problem details: Primarily due to severe aortic stenosis. Attempt increase diuresis and monitor response (3) Valvular cardiomyopathy: Status: Acute Problem details: -in association with severe aortic stenosis -progressive with LV EF 30-35% per TTE 04/05/2024, compared to EF 59% per TTE 01/20/2024 (4) Aortic stenosis, severe: Status: Acute Problem details: -heart failure likely due to aortic stenosis and associated valvular cardiomyopathy primarily. -TTE 04/05/24 demonstrates aortic valve peak velocity of 3.9 m/s, peak gradient of 62 mmHg, man gradient of 36 mmHg. LV EF now 30-35%, was 59% o 01/20/2024. -He declines consideration of TAVR or hospice. (5) Atrial fibrillation with RVR: Status: Acute Problem details: Echo shows EF of 59 % and severe , rate control and anticoagulate with apixaban. Requiring both metoprolol and diltiazem for rate control (6) Atrial septal defect: Status: Acute Problem details: -TTE 04/05/2024 reveals left to right atrial shunt, new since TTE 01/20/2024. (7) Hypertensive heart disease: Status: Acute (8) HTN (hypertension): Status: Chronic Problem details: -losartan, continue (9) COPD (chronic obstructive pulmonary disease): Status: Chronic Problem details: -Has had minimal wheezing during this hospital stay. -50-75 pack-year history of smoking, quit when he retired from work (10) History of tobacco use disorder: Status: Acute Problem details: -50-75 pack-year history, quit roughly 20 years ago when he retired from work (11) Pleural effusion, left: Status: Acute Problem details: This is likely due to heart failure. Patient is declining thoracentesis for diagnostic or therapeutic purposes. (12) Heart failure with reduced ejection fraction: Status: Acute Problem details: -Newly developed reduced ejection fraction. -LV EF 30-35% on TTE 04/05/2024, compared with 59% on TTE 01/20/2024 (13) Acute respiratory failure: Status: Acute Problem details: Hypoxic respiratory failure appears to be due to worsening congestive heart failure primarily. This is not appear to be COVID pneumonia. The heart failure is a combination of his severe aortic stenosis and now the new development of reduced ejection fraction. Echocardiogram from December showed ejection fraction of 59% now in the range of 30-35%. (14) CKD (chronic kidney disease) stage 4, GFR 15-29 ml/min: Status: Chronic Problem details: Cr trend: 1.2 in 2020 -> 1.4 in 2021 -> 1.6 in 2022 -> 1.8 in early 2023 -> 2.6- 2.9 in . The jump this year was felt to be secondary to adding toresmide in October, progressive CHF/Aortic stenosis. pt would not want dialysis monitor electrolytes; aleve pulmonary congestion/dyspnea [facility] ([facility]) Richard Fermin MD (15) Palliative care encounter: Status: Acute Problem details: I reviewed with patient the difficulty of managing his heart failure with reduced ejection fraction and severe aortic stenosis. I indicated that without a TAVR he would likely continue to have significant dyspnea and recurrent hospitalizations. I offered him the option of hospice. He did not seem interested in that at this time. He would like medical treatment to feel better but wants no intervention such as TAVR or even thoracentesis (16) COVID-19: Status: Acute (17) AAA (abdominal aortic aneurysm): Status: Acute Problem details: 2008 had AAA surgery at [facility]. 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 -A1C 6.2% 01/20/24 -diet managed (19) Morbid obesity: Status: Chronic DS: Summary Hospital Course Hospital Course: Admission history of present illness: ?89-year-old male admitted to the hospital with worsening dyspnea over the past few weeks. Recently he has had a sense of chills and is developed some cough. In the emergency department he was diagnosed with COVID and heart failure exacerbation. Patient is well known to me with a history of heart failure with critical aortic stenosis, stage 4 kidney disease, type 2 diabetes, AAA, COPD, atrial fibrillation and flutter. I last took care of him at the end of December 2023 when he was not responding well to treatment of heart failure and pneumonia and AFib. He was transferred to [facility] for ongoing cardiology care and consideration of TAVR for his critical aortic stenosis. After discussion at [place] the decision was made not to proceed with TAVR. Patient reports he has been doing okay for since then but has had increasing dyspnea over the past few weeks. Chills and possibly fever more recently. He has been exposed to COVID. On admission and throughout the course of hospitalization we discussed how aortic stenosis is a surgical disease. Patient continued to express desire for no intervention for this and requested that we focus on doing what we can medically. We explained to him and family that medications might help for short period of time but they could also hurt. He expressed understanding and asked that we try to do our best. We discussed the possibility of hospice care in at this time he declines. Seems like he might be interested in this in the near future. Does agree to home care at this time. We intensified his administration of loop diuretic considerably in-hospital administering 80 mg of furosemide IV twice daily. Weight on admission was 95.3 kg. Weight at time of discharge was down to 91.7 kg. He had previously been taking torsemide 10 mg once daily at home. At time of discharge we increase this to torsemide 60 mg once daily. Did require potassium supplementation in hospital. Did adjust his potassium supplementation dosing. Initially required oxygen at 4 liters/minute via nasal cannula to maintain resting saturations greater than 88%. At time of discharge was requiring only 1 liter/minute via nasal cannula to maintain resting oxygen saturations greater than 88%. At time of discharge was requiring oxygen at 3 liters/minute via nasal cannula with exertion to maintain saturations greater than 88%. Time Spent with Patient Time attestation: Total time spent providing and/or coordinating discharge services: Exam Narrative: Exam Narrative: Examine him in his hospital room. Appears comfortable. Has hepatojugular reflux when sitting upright. Breath sounds are improved, with some scattered rhonchi but no wheezing or rales. Heart tones with regular rhythm. Abdomen benign. Moves all 4 extremities. 1-2 mm peripheral pitting edema pretibia lly. Three-part testing for home O2 consistent with need for oxygen supplementation at 1 liter/minute via nasal cannula continuously when resting to maintain oxygen saturations greater than 88%, and oxygen supplementation at 3 liters/minute via nasal cannula with activity to maintain oxygen saturations greater than 88%. Const: Vital Signs, click to edit/add: Vital Signs - 24 hr 04/07/24 15:57 04/07/24 19:39 04/07/24 21:17 Temperature 99.1 F 98.5 F 98.7 F Pulse Rate Pulse Rate [Pulse Oximeter] 91 90 87 Respiratory Rate 28 H 26 H 22 Blood Pressure [Le ft Arm] 118/53 L Blood Pressure [Ri ght Arm] 109/78 117/89 Pulse Oximetry 94 90 93 Oxygen Delivery Me thod Nasal Cannula Nasal Cannula Nasal Cannula Oxygen Flow Rate 2 2 2 04/07/24 21:17 04/07/24 22:34 04/08/24 03:47 Temperature 98.8 F Pulse Rate 95 Pulse Rate [Pulse Oximeter] 87 87 Respiratory Rate 20 Blood Pressure [Le ft Arm] Blood Pressure [Ri ght Arm] 126/91 H Pulse Oximetry 88 Oxygen Delivery Me thod Nasal Cannula Oxygen Flow Rate 2 04/08/24 07:00 04/08/24 07:00 04/08/24 07:30 Temperature 98.0 F Pulse Rate 97 Pulse Rate [Pulse Oximeter] 70 82 Respiratory Rate 22 24 Blood Pressure [Le ft Arm] 128/79 Blood Pressure [Ri ght Arm] Pulse Oximetry 92 Oxygen Delivery Me thod Nasal Cannula Oxygen Flow Rate 2 04/08/24 08:45 04/08/24 11:00 Temperature 98.3 F Pulse Rate Pulse Rate [Pulse Oximeter] 82 Respiratory Rate 24 Blood Pressure [Le ft Arm] Blood Pressure [Ri ght Arm] 137/68 Pulse Oximetry 92 90 Oxygen Delivery Me thod Nasal Cannula Oxygen Flow Rate 2 DS: Data Data Completed and Pending Completed studies during hospitalization: Procedures Introduction of Other Therapeutic Substance into Respiratory Tract, Via Natural or Artificial Opening (01/19/24) Imaging Echo: Radiologist's impression: Transthoracic echocardiogram 04/05/2024: Normal LV size, borderline wall thickness, moderately reduced global systolic function with estimated ejection fraction of 30-35%. Sclerotic aortic valve with severe stenosis and mild regurgitation. Aortic valve peak velocity is 3.9 m/sec, peak gradient is 62 mmHg, mean gradient is 36 mmHg. Discharge Plan Discharge Disposition: Home w/ Parent or Adult Date of Admission: 04/05/24 03:05 Attending Provider on Discharge: Vimal Nicole Primary Care Provider: Rodney Vergara Condition: Stable Anticipated Discharge Date/Time: 04/08/24 15:30 Discharge Medications: New ipratropium-albuterol 0.5 mg-3 mg(2.5 mg base)/3 mL Solution For Nebulization 3 ml inhalation QID Qty: 180 1RF torsemide 20 mg tablet 60 mg PO QAM Qty: 90 3RF Continued ipratropium-albuterol 0.5 mg-3 mg(2.5 mg base)/3 mL solution for nebulization 3 ml INHALATION QID PRN triamcinolone acetonide 0.5 % cream 1 applic topical BID PRN (Reason: itching) pravastatin 80 mg tablet 80 mg PO HS tamsulosin 0.4 mg capsule 0.8 mg PO DAILY albuterol sulfate 90 mcg/actuation HFA aerosol inhaler 1 - 2 puff INHALATION Q4H PRN (Reason: wheezing) Incruse Ellipta 62.5 mcg/actuation blister with device 1 inh INHALATION DAILY acetaminophen 500 mg tablet 1,000 mg PO Q6H PRN metoprolol succinate 50 mg tablet extended release 24 hr 50 mg PO DAILY Eliquis 2.5 mg tablet 2.5 mg PO BID Discontinued torsemide 10 mg tablet 10 mg PO DAILY Patient Comments: AND ONE NEEDED WHEN WT IS ABOVE 225 POUNDS Discharge Orders: Discharge Order (Routine); Ordered 04/08/24 Ordered By: Vimal Nicole Patient Education: Torsemide (By mouth), Ipratropium/Albuterol (By breathing), Heart Failure (DC), Aortic Stenosis (GEN), Hospice Care (GEN), Using Oxygen at Home (DC), COPD (Chronic Obstructive Pulmonary Disease) (DC), Palliative Care (GEN), COVID-19 (Coronavirus Disease 2019) (DC), COVID-19 and Chronic Health Conditions (DC) Additional Instructions: 1. Keep follow-up appointment with health inspector food as already established on 04/10/2024 2. Follow-up with Dr. Vergara in 5-10 days and consider discussion of hospice support 3. Home care referral for physical therapy, occupational therapy, and nursing made 4. Oxygen therapy: Oxygen 1 LPM via nasal canula when at rest and 3 LPM via nasal canula with activity/exertion 5. Weigh yourself once daily and record, and follow instructions per Dr. Vergara or health inspector food for management of water pill (diuretic, torsemide) 6. Return to clinic or hospital sooner if needed Activity Level: Activity as Tolerated Discharge Diet: 2 gm Sodium Follow Up Appointments: Nacho Vega MD [Referring] - 04/13/24 1:50 pm ([facility] for follow-up.) Rodney Vergara MD [Primary Care Provider] - Forms: [employer] Info Instructions
--- NOTE | 2024-04-09 15:03 | PC.SOCIAL ---
Addendum entered by MARIN Hassan 04/09/24 16:15: Discharge planning: [employer] received a message from [facility] #[phone] stating that they received the pt's home care referral and are in the process of reviewing it. Social work to follow-up as needed. Original Note: Discharge planning: Pt was discharged on 04/08/2024 with PT/OT/group home home care recommendations. [employer] is following up on this referral today, as yesterday was a weekend day. [employer] faxed the home care referral to [facility] at fax #[phone]. Pt[facility] PCP [facility] through [facility] [place]. Social work to follow-up as needed.
--- NOTE | 2024-04-12 14:09 | PC.SOCIAL ---
Discharge planning: disposal worker did not hear back from [facility] that they could not accept the pt for services, meaning according to their last voice message, this worker would only hear back from [facility] if they could not accept the pt for services after review of his referral. Social work to follow-up as needed.
== END 2024-04-08 15:18 | disposition home or self-care (01) | DRG 306 ==
LOC: ED 02:33 → MEDSURG 02:37
PROVIDERS: Family Medicine; Internal Medicine; Student in an Organized Health Care Education/Training Program; Admitting Provider Internal Medicine; Emergency Provider Family Medicine; PCP Family Medicine; Visit Provider Student in an Organized Health Care Education/Training Program
DX: I35.0 Nonrheumatic aortic (valve) stenosis (principal); I50.43 Acute on chronic combined systolic (congestive) and diastolic (congestive) heart failure; J96.21 Acute and chronic respiratory failure with hypoxia; U07.1 COVID-19; I13.0 Hypertensive heart and chronic kidney disease with heart failure and stage 1 through stage 4 chronic kidney disease, or unspecified chronic kidney disease; N18.4 Chronic kidney disease, stage 4 (severe); J91.8 Pleural effusion in other conditions classified elsewhere; I48.92 Unspecified atrial flutter; I42.8 Other cardiomyopathies; I51.0 Cardiac septal defect, acquired; I48.0 Paroxysmal atrial fibrillation; I71.40 Abdominal aortic aneurysm, without rupture, unspecified; N40.0 Benign prostatic hyperplasia without lower urinary tract symptoms; E11.22 Type 2 diabetes mellitus with diabetic chronic kidney disease; J44.9 Chronic obstructive pulmonary disease, unspecified; E66.01 Morbid (severe) obesity due to excess calories; Z68.33 Body mass index [BMI] 33.0-33.9, adult; Z51.5 Encounter for palliative care; Z87.891 Personal history of nicotine dependence
CPT/HCPCS: 36415; 51701; 71045; 80048; 82803; 83605; 83735; 83880; 84100; 84145; 84443; 84484; 85025; 85027; 86140; 87426; 93306; 94640; 94761; 97110; 97116; 97162; 97165; 97530; 97535; 99284; 99285; A9270; J1940